=== PATIENT | male | born 1965 | race Caucasian/White ===

== ENCOUNTER 2017-11-24 11:56 | Day surgery (SDC) | payer OTHER, SELFPAY ==
--- NOTE | 2017-11-23 23:24 | HP.PCM_ITS ---
History and Physical Date of Admission: 11/24/17 HISTORY OF PRESENT ILLNESS This is a 52-year-old gentleman, who presents with chronic pain in his left index fingertip that occurred after sustaining a crushing injury back in October of 2015, when his left index fingertip was pinched by heavy steel. X-rays in the summer were negative for fracture. The patient states that he feels persistent pain in his left fingertip, and the pain has worsened and is very sensitive, and whenever he touches his finger, the pain shoots throughout his finger. He seems to be having pain out of proportion. His finger is very sensitive to heat and cold. He states that he does not use the finger that much. He bypasses the index finger and uses his long finger with his thumb when he does activities of daily living and also while he is at work. The patient is right-hand dominant. The patient denies any numbness in his left index finger. The patient has good chief nuclear medicine technologist strength with his left hand. However, he does not use his index finger for his chief nuclear medicine technologist. 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 He has also noticed that when his nail grows out that when it gets to the end of his finger, it tends to curve around the tip of the finger. It does not grow very fast, but he has noticed a curvature deformity. At his office visit in December 2016, it was recommended that we proceed with an MRI. The MRI showed no fracture and no osteonecrosis. The flexor tendon and extensor tendon were intact. There was an artifact present that is suggestive of a foreign body. He presents at this time for further evaluation and treatment. PAST MEDICAL HISTORY: 1. Bone fractures. 2. History of drug abuse. 3. 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 4. Foreign body left index finger tip, sequela 5. Nail curvature deformity left index fingertip 6. Complex regional pain syndrome type 1, left index finger 7. Late effect crushing injury left index finger tip, sequela 8. Left index finger tip pain SURGICAL HISTORY: 1. Right and left shoulder surgery. 2. Right wrist surgery. 3. Excision of sarcoma, right shoulder, with thoracotomy and rib resection. MEDICATIONS: Neurontin. Percocet. ALLERGIES: None. SOCIAL HISTORY: The patient smokes. The patient drinks alcohol occasionally. FAMILY HISTORY: Negative. REVIEW OF SYSTEMS: GENERAL: Denies fever, fatigue, and weight loss. EARS, NOSE, AND THROAT: Denies nasal congestion. Denies sore throat. EYES: Denies eye pain. Denies cataracts. Denies glaucoma. ENDOCRINE: Denies excessive thirst or urination. INTEGUMENTARY: Denies suspicious lesions. Denies skin cancer. MUSCULOSKELETAL: Denies joint pain, joint stiffness, weakness in muscles or joints, back pain, or arthritis. NEUROLOGIC: Denies headaches. Does have pain out of proportion with his left index fingertip. CARDIOVASCULAR: Denies chest pain. Denies shortness of breath with exertion. PSYCHIATRIC: Denies anxiety. Denies depression. RESPIRATORY: Denies shortness of breath. Denies chronic cough. The patient is a smoker. GASTROINTESTINAL: Denies nausea, vomiting, diarrhea, or constipation. HEMATOLOGIC: Denies abnormal bruising. Denies bleeding. GENITOURINARY: Denies urinary frequency. Denies hematuria. PHYSICAL EXAMINATION: GENERAL: well developed, well nourished, in no acute distress. HEENT: Pupils equal, round, and reactive to light. Extraocular muscles intact. Throat is clear. NECK: Supple and nontender. No cervical adenopathy. LUNGS: Clear to auscultation. HEART: Regular rate and rhythm. ABDOMEN: Soft and nontender. EXTREMITIES: No clubbing, cyanosis, or edema. Radial pulses are palpable. No axillary adenopathy noted. The patient has some stiffness in his left shoulder from his history of sarcoma. The patient is right-hand dominant. In his left upper extremity on his index finger, he has some decreased soft tissue mass on the distal tip. There is some tenderness to palpation on his left index fingertip. No sensory deficits noted. The tenderness is present even with light touch. Minimal swelling noted in the left index finger. The fingers are warm with good capillary refill. The patient is able to make a fist with his whole hand. However, he tends not to use his left index finger unless he consciously bends it, and then the finger will flex into his palm. Thumb opposition is intact. No evidence of infection. The is no evidence of nail curvature deformity at this time, as his fingernail is trimmed proximally. The patient states that the nail only develops curvature distally when he does not trim his nails. NEURO: Cranial nerves II through XII grossly intact. ASSESSMENT 1. Left index fingertip pain. 2. Late-effect crushing injury, left index fingertip. 3. Complex regional pain syndrome, left index finger. 4. Nail curvature deformity, left index fingertip. 5. Smoker. 6. Late effect foreign body left index fingertip. PLAN The patient has a late-effect of a crush injury to his left index fingertip with pain out of proportion. He says the Neurontin and Percocet has been helpful. I told the patient is important to try and desensitize the area by tapping his finger while at home or at work. This will increase pain, but with the medication, hopefully that will help desensitize the area. He had an MRI done on March 10, 2017 which showed a foreign body present. This will need to be excised as hopefully this will be the source of his pain. After surgery, he may need evaluation at the pain center for injections to try and break the pain cycle for his chronic complex regional pain syndrome. The surgical intervention that was discussed with the patient included debridement of his left index fingertip to debride all the foreign body scar tissue in this tip. Because he already has some soft tissue loss in the area, debridement may cause further soft tissue loss. If he does not have the fat pad at the tip, then having length would not be very important, since he would develop chronic pain in his bone every time the bone would touch an object. In order to provide soft tissue to the tip of the finger, a local skin flap would be necessary such as a thenar flap. This is a two stage flap that needs a second procedure division and inset of the flap 3 weeks after the initial flap. Also, at the time of the debridement, I would look for a neuroma. If neuroma is present, that would be excised. After these types of surgical procedures, if he still has persistent pain in his left fingertip, as a last resort, the surgical option would be a tip amputation. This type of amputation may necessitate going into the middle phalanx. If we get to the realization that a tip amputation is necessary, hopefully we can get by with just amputating the tip down to the DIP joint and not extending it more proximally onto the middle phalanx. Because the patient is a smoker, sometimes tip amputations need to be done more proximally. That will be discussed with the patient at the appropriate time in the future if necessary. The important thing is is trying to get the patient to use the finger more, especially when he is at work as a wire welder. So, he may possibly need occupational therapy to help with [id number] exercises and strengthening. I will determine in the future when it is appropriate to make referral to the pain center. The next step is obtaining approval from [facility] for the proposed surgery. The patient was informed of the risks and complications of the procedure including alternatives to surgery. These were discussed with the patient personally. The patient voices understanding and wishes to proceed. Some of the risks and complications were included in a form from the [employer]. Some of the risks that were discussed included but were not inclusive of failure to diagnose including symptom relief, pain, infection, numbness, stiffness, loss of digit, RSD, the need for further surgery and contracture and wound healing problems. The patient voices understanding and wishes to proceed. Encouraged the patient to stop smoking as it may have deleterious effects on wound healing.
--- NOTE | 2017-11-24 12:07 | EKG12_ITS ---
Test Reason : PRE-OP Blood Pressure : / mmHG Vent. Rate : 076 BPM Atrial Rate : 076 BPM P-R Int : 148 ms QRS Dur : 086 ms QT Int : 376 ms P-R-T Axes : 008 007 026 degrees QTc Int : 423 ms Normal sinus rhythm Normal ECG No previous ECGs available Confirmed by TAO BARAHONA, STIVEN ([id number]), editor newspaper ISAIAS KULKARNI ([id number]) on 11/27/2017 2:42:42 PM Referred By: Juan Henson Confirmed By:STIVEN BURGER MD
[2017-11-24 12:20] VITALS: BP 113/77; PULSE 71; RESP 16; TEMP 36.8; O2SAT 96; BMI 27.5
[2017-11-24 12:30] LABS: Hematocrit 42.7 % (40-54); Hemoglobin 15.2 g/dl (13.0-16.5); Mean Corp Hgb Conc 35.6 g/gl (32-36); Mean Corpuscular Hgb 32.1 pg (27.0-32.0); Mean Corpuscular Volume 90.3 fL (80-94); Platelet Count 195 K/mm3 (150-450); RBC Distribution Width CV 12.3 % (11.6-14.6); RBC Distribution Width SD 40.6 fl (35.1-43.9); Red Blood Count 4.73 M/mm3 (4.6-6.2); White Blood Count 4.4 K/mm3 (4.4-11.0)
[2017-11-24 12:35] LABS: Scan Indicated on CBC? Y/N NO
--- NOTE | 2017-11-24 13:30 | BON_PTH ---
PATIENT: JOSE MARIA CALABRESE [place] [facility] [place][id number] AGE/SX: 52/M ROOM: RE11/24/[address]: Dr. Juan Henson MD : 1965 BED: DIS: 11/24/2017 SPEC #: [id number] RECD: 11/27/17 09:21 STATUS: RACHEAL MAHENDRA #: [id number] PRASAD: 11/24/17 13:[address]: Juan Henson DEPT: SURGICAL PATHOLOGY RECD BY: Vasyl Vásquez ENTERED: 11/27/17 12:19 SP TYPE: Bone OTHR DR: Dr. Deo Sherwood MD Tissues: A - Bone of hand, NOS B - Finger, NOS Procedures: Decalcification bone/plaque Surgery Specimen Level III HEADER OPERATION: Excision left index finger, removal foreign body PRE-OP DIAGNOSIS: Left index finger ? late effect crushing injury, complex regional pain syndrome, nail curvature deformity TISSUE SUBMITTED: A ? Left index finger bone, B - Left index finger tissue and nerve MICROSCOPIC DIAGNOSIS A. Left index finger bone: Pieces of bone with reactive changes, negative for acute osteomyelitis. B. Left index finger: Pieces of fibroadipose tissue, fibrovascular tissue and nerve bundles, consistent with traumatic neuroma. BRIAN:adri 11/29/17 MICROSCOPIC DESCRIPTION Slides are reviewed. GROSS DESCRIPTION A - Received in fixative is one container labeled with the patient's name and designated left index finger bone. The specimen consists of three pieces of bone measuring in aggregate 0.5 x 0.5 x 0.2 cm. The entire specimen is submitted in one cassette after decalcification. B - Received in fixative is one container labeled with the patient's name and designated left index finger tissue and nerve. The specimen consists of an irregular piece of mehta-white soft tissue measuring in aggregate 1.5 x 1 x 0.1 cm. The specimen is totally submitted in one cassette. / BRIAN:adri 11/27/17 TC:5 CPT: 58936 x2, 03496
[2017-11-24] MEDS: Mupirocin Ointment 22gm Tube 1 APPLIC (14:32)
[2017-11-24] MEDS: Cefazolin 2 GM in 0.9% Normal Saline 100 ML IV (14:50)
--- NOTE | 2017-11-24 16:27 | PCM.IMDPSTOP ---
Immediate Post-Op Note Date of Procedure: 11/24/17 Primary Surgeon/Physician: Juan Henson database development project manager: None Pre-Operative Diagnosis: 1. Left index fingertip pain. 2. Late-effect crushing injury, left index fingertip. 3. Complex regional pain syndrome, left index finger. 4. Nail curvature deformity, left index fingertip. 5. Smoker. 6. Late effect foreign body left index fingertip. Post-Operative Diagnosis: 1. Left index fingertip pain. 2. Late-effect crushing injury, left index fingertip. 3. Painful ulnar and radial digital neuromas left index finger tip. 4. Complex regional pain syndrome, left index finger. 5. Nail curvature deformity, left index fingertip. 6. Smoker. 7. Late effect foreign body left index fingertip with foreign body granuloma. Surgery/Procedure Performed:: 1. Surgical preparation painful left index finger tip with excision foreign body granuloma and excisional debridement crushing injury dense scar tissue with excision painful ulnar and radial digital neuromas. 2. Partial ostectomy distal phalanx left index finger tip for osteomyelitis. 3. Reconstruction left index finger tip wound with volar advancement skin flaps (10 cm2). Description of Surgical Findings:: This is a 52-year-old gentleman, who presents with chronic pain in his left index fingertip that occurred after sustaining a crushing injury back in October of 2015, when his left index fingertip was pinched by heavy steel. X-rays in the summer were negative for fracture. The patient states that he feels persistent pain in his left fingertip, and the pain has worsened and is very sensitive, and whenever he touches his finger, the pain shoots throughout his finger. He seems to be having pain out of proportion. His finger is very sensitive to heat and cold. He states that he does not use the finger that much. He bypasses the index finger and uses his long finger with his thumb when he does activities of daily living and also while he is at work. The patient is right-hand dominant. The patient denies any numbness in his left index finger. The patient has good show host strength with his left hand. However, he does not use his index finger for his show host. 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 He has also noticed that when his nail grows out that when it gets to the end of his finger, it tends to curve around the tip of the finger. It does not grow very fast, but he has noticed a curvature deformity. At his office visit in December 2016, it was recommended that we proceed with an MRI. The MRI showed no fracture and no osteonecrosis. The flexor tendon and extensor tendon were intact. There was an artifact present that is suggestive of a foreign body. Operative intervention was recommended, and after excision of this foreign body granuloma, this will hopefully be the source of his pain. After surgery, he may need evaluation at the pain center for injections to try and break the pain cycle for his chronic complex regional pain syndrome. The surgical intervention that was discussed with the patient included debridement of his left index fingertip to debride all the foreign body scar tissue in this tip. Because he already has some soft tissue loss in the area, debridement may cause further soft tissue loss. If he does not have the fat pad at the tip, then having length would not be very important, since he would develop chronic pain in his bone every time the bone would touch an object. In order to provide soft tissue to the tip of the finger, a local skin flap would be necessary such as a thenar flap. This is a two stage flap that needs a second procedure division and inset of the flap 3 weeks after the initial flap. Also, at the time of the debridement, I would look for a neuroma. If neuroma is present, that would be excised. After these types of surgical procedures, if he still has persistent pain in his left fingertip, as a last resort, the surgical option would be a tip amputation. This type of amputation may necessitate going into the middle phalanx. Today the patient underwent surgical preparation painful left index finger tip with excision foreign body granuloma and excisional debridement crushing injury dense scar tissue with excision painful ulnar and radial digital neuromas and partial ostectomy distal phalanx left index finger tip for osteomyelitis and reconstruction left index finger tip wound with volar advancement skin flaps (10 cm2). Total tourniquet time - 63 minutes. The size of the defect and the flaps necessary to close the defect was 5 x 2 cm. Estimated Blood Loss: 2 ml. Specimen's removed: 1. Soft tissue left index finger tip to Pathology and Microbiology. 2. Distal phalanx bone left index finger tip to Pathology and Microbiology. Drains: None. Type of Anesthesia:: General - Admit VTE Documentation VTE Present on Admission: No VTE Mechan Device Prophylaxis: SCD's VTE Pharm Prophylaxis ordered?: No
--- NOTE | 2017-11-24 16:33 | OP.PN_ITS ---
Immediate Post-Op Note Date of Procedure: 11/24/17 Primary Surgeon/Physician: Juan Henson air technician: None Pre-Operative Diagnosis: 1. Left index fingertip pain. 2. Late-effect crushing injury, left index fingertip. 3. Complex regional pain syndrome, left index finger. 4. Nail curvature deformity, left index fingertip. 5. Smoker. 6. Late effect foreign body left index fingertip. Post-Operative Diagnosis: 1. Left index fingertip pain. 2. Late-effect crushing injury, left index fingertip. 3. Painful ulnar and radial digital neuromas left index finger tip. 4. Complex regional pain syndrome, left index finger. 5. Nail curvature deformity, left index fingertip. 6. Smoker. 7. Late effect foreign body left index fingertip with foreign body granuloma. Surgery/Procedure Performed:: 1. Surgical preparation painful left index finger tip with excision foreign body granuloma and excisional debridement crushing injury dense scar tissue with excision painful ulnar and radial digital neuromas. 2. Partial ostectomy distal phalanx left index finger tip for osteomyelitis. 3. Reconstruction left index finger tip wound with volar advancement skin flaps (10 cm2). Description of Surgical Findings:: This is a 52-year-old gentleman, who presents with chronic pain in his left index fingertip that occurred after sustaining a crushing injury back in October of 2015, when his left index fingertip was pinched by heavy steel. X-rays in the summer were negative for fracture. The patient states that he feels persistent pain in his left fingertip, and the pain has worsened and is very sensitive, and whenever he touches his finger, the pain shoots throughout his finger. He seems to be having pain out of proportion. His finger is very sensitive to heat and cold. He states that he does not use the finger that much. He bypasses the index finger and uses his long finger with his thumb when he does activities of daily living and also while he is at work. The patient is right-hand dominant. The patient denies any numbness in his left index finger. The patient has good day haul youth supervisor strength with his left hand. However, he does not use his index finger for his day haul youth supervisor. 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 He has also noticed that when his nail grows out that when it gets to the end of his finger, it tends to curve around the tip of the finger. It does not grow very fast, but he has noticed a curvature deformity. At his office visit in December 2016, it was recommended that we proceed with an MRI. The MRI showed no fracture and no osteonecrosis. The flexor tendon and extensor tendon were intact. There was an artifact present that is suggestive of a foreign body. Operative intervention was recommended, and after excision of this foreign body granuloma, this will hopefully be the source of his pain. After surgery, he may need evaluation at the pain center for injections to try and break the pain cycle for his chronic complex regional pain syndrome. The surgical intervention that was discussed with the patient included debridement of his left index fingertip to debride all the foreign body scar tissue in this tip. Because he already has some soft tissue loss in the area, debridement may cause further soft tissue loss. If he does not have the fat pad at the tip, then having length would not be very important, since he would develop chronic pain in his bone every time the bone would touch an object. In order to provide soft tissue to the tip of the finger, a local skin flap would be necessary such as a thenar flap. This is a two stage flap that needs a second procedure division and inset of the flap 3 weeks after the initial flap. Also, at the time of the debridement, I would look for a neuroma. If neuroma is present, that would be excised. After these types of surgical procedures, if he still has persistent pain in his left fingertip, as a last resort, the surgical option would be a tip amputation. This type of amputation may necessitate going into the middle phalanx. Today the patient underwent surgical preparation painful left index finger tip with excision foreign body granuloma and excisional debridement crushing injury dense scar tissue with excision painful ulnar and radial digital neuromas and partial ostectomy distal phalanx left index finger tip for osteomyelitis and reconstruction left index finger tip wound with volar advancement skin flaps ( 10 cm2). Total tourniquet time - 63 minutes. The size of the defect and the flaps necessary to close the defect was 5 x 2 cm. Estimated Blood Loss: 2 ml. Specimen's removed: 1. Soft tissue left index finger tip to Pathology and Microbiology. 2. Distal phalanx bone left index finger tip to Pathology and Microbiology. Drains: None. Type of Anesthesia:: General - Admit VTE Documentation VTE Present on Admission: No VTE Mechan Device Prophylaxis: SCD's VTE Pharm Prophylaxis ordered?: No
[2017-11-24 16:39] VITALS: BP 113/77; BP 129/80; PULSE 75; RESP 16; TEMP 36.6; O2SAT 100
--- NOTE | 2017-11-24 16:39 | PCM.DC ---
You will use the following diet at home:: No restrictions Discharge Activity: May not drive while taking narcotic pain medications., May Shower - wear plastic bag over left hand when showering. Return to work on:: 12/22/17 - tentative May shower in (days): 1 - wear plastic bag over left hand when showering. May resume sexual activity in: No Restrictions Lifting Restrictions: 20 lbs. Keep extremity elevated above heart level: Left Arm Call your doctor if your incision/area has: Continuous Slow Oozing, Sudden Increased Bleeding, Increased Pain/ Swelling, Increased Redness, Foul Smelling Discharge, Swelling at the incision site Call your doctor if you observe: Fever of 101 or Higher, Coldness, Increased Pain, Shortness of breath, Chest pain, Calf discomfort, Uncontrolled pain Suture Line Care: - - after dressing removed in office, apply antibiotic ointment to suture line daily. Change Dressing in (Days):: 7 - change in office. Cleanse incision/area with: - - wear plastic bag over left hand when showering. Allergies/Adverse Reactions: Allergies succinylcholine chloride [From Anectine] Allergy (Verified 11/23/17 16:35) Other Medications to take at Discharge Doxycycline [Vibramycin] 100 mg PO BID #28 cap 11/24/17 Gabapentin [Neurontin] 300 mg PO BID 30 Days #60 cap 11/24/17 Oxycodone HCl/Acetaminophen [Percocet 5/325] 1 - 2 tab PO 4X/DAY PRN PRN 7 Days #50 tab 11/24/17 The following prescriptions were given: Oxycodone HCl/Acetaminophen [Percocet 5/325] 1 - 2 tab PO 4X/DAY PRN PRN 7 Days #50 tab PRN Reason: Pain Doxycycline [Vibramycin] 100 mg PO BID #28 cap Gabapentin [Neurontin] 300 mg PO BID 30 Days #60 cap Primary Care Physician: Deo Sherwood MD [Primary Care Provider] - Please Follow Up With: Juan Henson MD When: one week. call [phone] for appt. Proposed Discharge Date: 11/24/17
[2017-11-24 16:45] VITALS: BP 113/77; BP 122/89; PULSE 77; RESP 16; O2SAT 100
[2017-11-24 16:52] VITALS: BP 113/77
[2017-11-24 17:00] VITALS: BP 113/77; BP 121/96; PULSE 72; RESP 16; TEMP 36.2; O2SAT 95
[2017-11-24 17:11] VITALS: BP 113/77
--- NOTE | 2017-11-24 20:34 | PCM.OPRPT ---
Report of Operation Date of Procedure: 11/24/17 Pre-Operative Diagnosis: 1. Left index fingertip pain. 2. Late-effect crushing injury, left index fingertip. 3. Complex regional pain syndrome, left index finger. 4. Nail curvature deformity, left index fingertip. 5. Smoker. 6. Late effect foreign body left index fingertip. Post-Operative Diagnosis: 1. Left index fingertip pain. 2. Late-effect crushing injury, left index fingertip. 3. Painful ulnar and radial digital neuromas left index finger tip. 4. Complex regional pain syndrome, left index finger. 5. Nail curvature deformity, left index fingertip. 6. Smoker. 7. Late effect foreign body left index fingertip with foreign body granuloma. Surgery/Procedure Performed:: 1. Surgical preparation painful left index finger tip with excision foreign body granuloma and excisional debridement crushing injury dense scar tissue with excision painful ulnar and radial digital neuromas. 2. Partial ostectomy distal phalanx left index finger tip for osteomyelitis. 3. Reconstruction left index finger tip wound with volar advancement skin flaps (10 cm2). Description of Surgical Findings:: This is a 52-year-old gentleman, who presents with chronic pain in his left index fingertip that occurred after sustaining a crushing injury back in October of 2015, when his left index fingertip was pinched by heavy steel. X-rays in the summer were negative for fracture. The patient states that he feels persistent pain in his left fingertip, and the pain has worsened and is very sensitive, and whenever he touches his finger, the pain shoots throughout his finger. He seems to be having pain out of proportion. His finger is very sensitive to heat and cold. He states that he does not use the finger that much. He bypasses the index finger and uses his long finger with his thumb when he does activities of daily living and also while he is at work. The patient is right-hand dominant. The patient denies any numbness in his left index finger. The patient has good assistant activities director strength with his left hand. However, he does not use his index finger for his assistant activities director. 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 He has also noticed that when his nail grows out that when it gets to the end of his finger, it tends to curve around the tip of the finger. It does not grow very fast, but he has noticed a curvature deformity. At his office visit in December 2016, it was recommended that we proceed with an MRI. The MRI showed no fracture and no osteonecrosis. The flexor tendon and extensor tendon were intact. There was an artifact present that is suggestive of a foreign body. Operative intervention was recommended, and after excision of this foreign body granuloma, this will hopefully be the source of his pain. After surgery, he may need evaluation at the pain center for injections to try and break the pain cycle for his chronic complex regional pain syndrome. The surgical intervention that was discussed with the patient included debridement of his left index fingertip to debride all the foreign body scar tissue in this tip. Because he already has some soft tissue loss in the area, debridement may cause further soft tissue loss. If he does not have the fat pad at the tip, then having length would not be very important, since he would develop chronic pain in his bone every time the bone would touch an object. In order to provide soft tissue to the tip of the finger, a local skin flap would be necessary such as a thenar flap. This is a two stage flap that needs a second procedure division and inset of the flap 3 weeks after the initial flap. Also, at the time of the debridement, I would look for a neuroma. If neuroma is present, that would be excised. After these types of surgical procedures, if he still has persistent pain in his left fingertip, as a last resort, the surgical option would be a tip amputation. This type of amputation may necessitate going into the middle phalanx. The patient was informed of the risks and complications of the procedure including alternatives to surgery. These were discussed with the patient personally. The patient voices understanding and wishes to proceed. Some of the risks and complications were included in a form from the [employer]. Some of the risks that were discussed included but were not inclusive of failure to diagnose including symptom relief, pain, infection, numbness, stiffness, loss of digit, RSD, the need for further surgery and contracture and wound healing problems. The patient voices understanding and wishes to proceed. Encouraged the patient to stop smoking as it may have deleterious effects on wound healing. Total tourniquet time - 63 minutes. The size of the defect and the flaps necessary to close the defect was 5 x 2 cm. suit attendant: None Type of Anesthesia:: General Specimen's removed: 1. Soft tissue left index finger tip to Pathology and Microbiology. 2. Distal phalanx bone left index finger tip to Pathology and Microbiology. Drains: None. Estimated Blood Loss (mL): 2 ml. Description of Procedure: Patient was taken to OR in supine position and was placed under general anesthesia. His left hand was prepped and draped in the usual fashion. A tourniquet was placed preop. SCD's were placed for DVT prophylaxis. Perioperative antibiotics were given intravenously. An Esmarch bandage was used to wrap the left hand and forearm. The tourniquet was inflated to 250 mmHg. Under loupe magnification, I first started by loosening the nail plate off the nail bed with an elevator. Some abnormal scarring in the distal nail bed area was excised. I extended this incision down the ulnar aspect of the finger to the DIP joint crease. I then continued the incision horizontally toward the radial side of the finger. I created a skin flap and dissected down to the tendon sheath and the distal phalanx bone. There was a lot of dense scar tissue present. No obvious foreign body was seen but the denseness of the scarring could be indicative of a foreign body granuloma. There was some irregularities to the bone on the radial aspect of the distal phalanx and was excised with a partial ostectomy with a rongeur. The edges were smoothed out with a rasp. I also removed some distal phalanx bone from the most distal portion of the bone as well. There was a lot of dense scar tissue around the distal ends of the radial digital and ulnar digital nerves. This external compression could be contributing to the patient's pain and irritation and his reluctance to use his index finger while at work. With the severity of the crushing nature of this injury, I anticipate there is internal nerve damage as well and just by doing the neurolysis may not be enough to help his pain. He understands that there may be some numbness after the surgery and that is ok as long as his painful symptomatology improves and he starts to use his index finger while at work. Therefore these painful radial digital and ulnar digital neuromas were excised. I dissected out both nerves and placed them on stretch. I then excised the tip of both nerves and allowed the digital nerves to retract more proximally to minimize discomfort while he is at work. After the soft tissue and bone were debrided, I advanced the distal skin flap to the tip more distally to provide extra soft tissue to the tip of the finger. I also had to advance this flap because of the wound created by excising the abnormal scar tissue from the nail bed distally. After advancing this distal flap, there was a defect on the volar aspect at the level of the DIP joint crease with the tendon exposed. Therefore I wanted to closed this wound defect. I extended another volar flap down to the MP joint crease and dissected down to the tendon sheath. This second flap was easily advanced into the defect with minimal tension and minimal distortion. The size of the defect and the size of the skin flaps necessary to close the defect was 5 x 2 cm or 10 cm2. Half the soft tissue and half the bone was sent to Pathology for analysis to rule out carcinoma and to evaluate for osteomyelitis and half the soft tissue and half the bone was sent to Microbiology for culture. His painful symptomatology may be partially related to a chronic infection. I then closed the volar skin flaps with 5-0 Nylon simple interrupted and vertical mattress interrupted sutures. I also used 5-0 Nylon interrupted sutures to keep the nail plate intact on the nail bed. Antibiotic ointment was applied to the suture line. The tourniquet was released after 63 minutes. Hemostasis obtained with gentle pressure and elevation. No vascular compromise was noted on the skin flaps. I then dressed the left index finger with Xeroform gauze followed by 2x2 gauze and a 2 inch David wrap. Patient tolerated the procedure well and was sent to PACU in satisfactory condition. He will be sent home on antibiotics and pain medication and Neurontin for any burning nerve pain that may develop from the excision of the painful neuromas. He will followup in the office in a week. His sutures will be removed in 2-3 weeks. He will keep his left hand elevated during the initial postop period. I will have him tentatively off work until 12/22/17. Grafts/Implants Used: None. - Complications None. - Admit VTE Documentation VTE Present on Admission: No VTE Mechan Device Prophylaxis: SCD's VTE Pharm Prophylaxis ordered?: No Code Visit Surgery Charges CPT - 48529 ICD-10 - S67.191A, S61.341S, L60.8, G90.512, S67.191S, M79.645, G57.60, Z87.891 11250 S67.191A, S61.341S, L60.8, G90.512, S67.191S, M79.645, G57.60, Z87.891 85611 S67.191A, S61.341S, L60.8, G90.512, S67.191S, M79.645, G57.60, Z87.891 [id number] S67.191A, S61.341S, L60.8, G90.512, S67.191S, M79.645, G57.60, Z87.891
== END 2017-11-24 17:28 | disposition home or self-care (01) ==
LOC: SDC 11:58 → AC 11:58
PROVIDERS: Anesthesiology; Family Provider Family Medicine; PCP Family Medicine; Visit Provider Surgery
PROC: (CPT 15574; principal; 2017-11-24 13:15)
DX: G90.512 Complex regional pain syndrome I of left upper limb (principal); D36.12 Benign neoplasm of peripheral nerves and autonomic nervous system, upper limb, including shoulder; F17.200 Nicotine dependence, unspecified, uncomplicated; Z85.830 Personal history of malignant neoplasm of bone; L60.8 Other nail disorders; Y99.0 Civilian activity done for income or pay; S67.191S Crushing injury of left index finger, sequela; S61.33 Puncture wound without foreign body of finger with damage to nail; W23.0XXS Caught, crushed, jammed, or pinched between moving objects, sequela; Z87.891 Personal history of nicotine dependence
CPT/HCPCS: 15004; 15574; 20525; 26236; 26520; 85027; 87070; 87075; 87102; 87186; 87205; 87206; 88304; 88311; 93005; J7120; J2405

== ENCOUNTER 2019-01-08 14:13 | Emergency (ER) | payer OTHER, SELFPAY ==
[2019-01-08 14:14] VITALS: BP 124/84; PULSE 85; RESP 16; TEMP 36.8; O2SAT 97; BMI 27.1
--- NOTE | 2019-01-08 14:33 | CT_ITS ---
STUDY: CT ABDOMEN AND PELVIS WITHOUT CONTRAST REASON FOR EXAM: Male, 53 years old. Worsening lower abdominal pain. Left greater than right. RADIATION DOSAGE (If Supplied By Facility): CTDIvol = ( 7.40 ) mGy, DLP = ( 371.72 ) mGycm TECHNIQUE: Transaxial images were obtained from the dome of the diaphragm to the symphysis pubis without oral contrast, and without intravenous contrast. Sagittal and coronal images were reconstructed. Individualized dose optimization techniques were used for this CT. COMPARISON: None. FINDINGS: Increased markings at the lung bases with areas of confluence suggesting bibasilar atelectasis and/or infiltrates. The visualized portions of the heart are within normal limits. Normal liver. Normal gallbladder and extrahepatic biliary system. Normal spleen. Normal pancreas. Normal bilateral adrenal glands. Normal right kidney. Normal left kidney. There is a small hiatal hernia. Normal small intestine. There is diverticulosis, with thickening of the colon wall, and pericolonic inflammation changes consistent with a mild degree of acute diverticulitis. The appendix is visualized and appears normal. There is scattered atherosclerotic calcification of the abdominal aorta, without a demonstrated aneurysm. Normal inferior vena cava. Normal retroperitoneum. Normal urinary bladder. There is a small umbilical hernia containing fat. Small left inguinal containing fat. Disc space narrowing and degeneration at the L5-S1 level. CT/Abdomen/Pelvis without Cont IMPRESSION: Findings in keeping with a mild degree of the acute noncomplicated sigmoid diverticulitis. Follow-up is recommended. Electronically Signed: Zelalem Peoples, at 15:24 EDT , Service support ,
[2019-01-08] MEDS: Morphine 4 MG/ML Syringe IV (14:56)
[2019-01-08] MEDS: 0.9% Normal Saline 1,000 ML 1000 ML IV (14:56)
[2019-01-08] MEDS: Ondansetron 4 MG/2 ML Vial IV (14:56)
[2019-01-08 15:01] LABS: Absolute Lymphocyte Count 1.46 X10^3/ul (0.83-4.51); Absolute Neutrophil Count 6.1 X10^3/uL (2.0-7.7); Basophil# 0.02 X10^3/uL; Basophil% 0.2 % (0-1); Eosinophil# 0.12 X10^3/uL; Eosinophils% 1.4 % (0-5); Hematocrit 42.6 % (40-54); Hemoglobin 15.4 g/dl (13.0-16.5); Lymphocyte # 1.46 X10^3/ul (4.0); Mean Corp Hgb Conc 36.2 g/gl (32-36); Mean Corpuscular Hgb 32.8 pg (27.0-32.0); Mean Corpuscular Volume 90.6 fL (80-94); Mean Platelet Vol. 10.4 fl (6.2-12.0); Monocyte# 0.85 X10^3/uL; Monocyte% 9.9 % (0-10); Neutrophil # 6.13 X10^3/uL (2.7-7.7); Neutrophil % 71.4 % (47-70); Platelet Count 208 K/mm3 (150-450); RBC Distribution Width CV 12.3 % (11.6-14.6); RBC Distribution Width SD 40.6 fl (35.1-43.9); White Blood Count 8.6 K/mm3 (4.4-11.0)
--- NOTE | 2019-01-08 15:07 | ED.VISSUMM ---
- ER Visit Summary Date of Service: 01/08/19 Chief Complaint: Abdominal pain History of Present Illness: The patient is a [address] Deo Sherwood. He reports he has lower abdominal pain began 2 days ago. Is gradually gotten worse. It is a constant cramping pain with sharp episodes. It is 8 out of 10 at worst and 3 out of 10 currently. Is worsened by movement relieved by remaining still. He reports that he is been nauseated, but has not vomited. He denies any diarrhea. In fact he reports his last bowel was 2 days ago and typically he goes daily. No blood in stools or black tarry stools. No dysuria or frequency. He does complain of poor appetite and chills. Physical Examination: Vitals: Stable. Afebrile. General: Well-nourished and well-developed. Head: Normocephalic atraumatic. Neck: Supple, no lymphadenopathy. No JVD. Nontender. Cardiovascular: Regular rate and rhythm. No murmurs. Respiratory: No respiratory distress. Clear to auscultation bilaterally. Abdominal: Soft, mild right lower quadrant and moderate left lower quadrant tenderness to palpation, nondistended, normal bowel sounds. No guarding, rebound, or peritoneal signs. Back: Nontender. Extremities: Nontender, no edema. Skin: Normal color, no rash. Neurologic: Alert and oriented ?3. Cranial nerves II through XII are intact. Normal strength and sensation. Psych: Normal affect. Test Results: CBC shows segmented neutrophils of 71 lymphocytes 17. Chem-7 shows a BUN of 19. Clinical Impression(s) from Imaging Studies Abdomen/Pelvis CT 01/08/19 14:33 IMPRESSION: Findings in keeping with a mild degree of the acute noncomplicated sigmoid diverticulitis. Follow-up is recommended. Electronically Signed: Zelalem Peoples, at 15:24 EDT , Service support , Emergency Department Course and Treatment: Patient had an IV placed. He is given morphine and Zofran IV. He is resting more comfortably. He was given Cipro and Flagyl p.o. Treatment Plan: Patient will be discharged on Cipro, Flagyl, Zofran, and [place]. Instructed to follow-up with Dr.John Sherwood in 1 week for another exam. Return to the emergency department for any worsening symptoms. Disposition: To home in improved and stable condition. Impression: 1. Diverticulitis. This note was generated with [email or web address] dictation software. It may contain incorrect words, spelling, and punctuation that were not noted in review of the chart prior to signing ED Disposition - Plan for ED Patient: Disposition: Home or Assisted Living Instructions: Diverticulitis Prescriptions: Ciprofloxacin [Cipro] 500 mg PO BID #20 tab metroNIDAZOLE [Flagyl] 500 mg PO Q6H #40 tab Prescription Printed Hydrocodone Bitart/Apap 5-325 [[place] 5MG-325MG] 1 tab PO Q4H PRN PRN 2 Days #10 tab PRN Reason: Pain Prescription Printed Ondansetron [Zofran Odt] 4 mg PO Q8H PRN PRN #10 tab PRN Reason: Nausea Prescription Printed Referrals: Deo Sherwood MD [Primary Care Provider] - 1 Week
[2019-01-08 15:14] LABS: Anion Gap 8 (5-15); BUN 19 mg/dL (7-18); Calcium,Total 9.1 mg/dL (8.5-10.1); Chloride 104 mmol/L (98-107); EST Glomerular Filtration Rate 83 mL/min (>60); Est Glom Filt Rate - Afr Amer 101 mL/min (>60); Estimated Creatinine Clearance 79.87 ml/min; Glucose 101 mg/dL (74-106); Potassium 3.9 mmol/L (3.5-5.1); Sodium Level 140 mmol/L (136-145)
[2019-01-08 15:17] LABS: POSITIVE COUNT NO; POSITIVE DIFFERENTIAL NO; POSITIVE MORPHOLOGY NO
[2019-01-08] MEDS: metroNIDAZOLE 500 MG Tablet PO (16:15)
[2019-01-08] MEDS: Ciprofloxacin 500 MG Tablet PO (16:15)
[2019-01-08 16:17] VITALS: BP 141/89; PULSE 69; RESP 16; O2SAT 95
[2019-01-08 16:18] VITALS: BP 141/89; PULSE 61; RESP 16; O2SAT 96
== END 2019-01-08 16:20 | disposition home or self-care (01) ==
PROVIDERS: Emergency Provider Emergency Medicine; Family Provider Family Medicine; PCP Family Medicine
DX: K57.32 Diverticulitis of large intestine without perforation or abscess without bleeding (principal)
CPT/HCPCS: 74176; 80048; 85025; 96361; 96374; 96375; 99284; J7030; A4216; J2405

== ENCOUNTER → 2019-04-04 16:31 | Outpatient (CLI) | payer OTHER, SELFPAY ==
[2019-01-30 12:12] VITALS: BMI 27.1
--- NOTE | 2019-04-04 16:50 | EKG12_ITS ---
Test Reason : PREOP Blood Pressure : / mmHG Vent. Rate : 068 BPM Atrial Rate : 068 BPM P-R Int : 162 ms QRS Dur : 086 ms QT Int : 372 ms P-R-T Axes : 024 029 041 degrees QTc Int : 395 ms Normal sinus rhythm with sinus arrhythmia Normal ECG Confirmed by ANURAG TOMPKINS ([id number]), assignment desk editor ISAIAS KULKARNI ([id number]) on 04/08/2019 2:01:54 PM Referred By: Conor Zelaya Confirmed By:ANURAG TOMPKINS
[2019-04-04 17:15] LABS: Hematocrit 43.3 % (40-54); Hemoglobin 15.1 g/dL (13.0-16.5); Mean Corp Hgb Conc 34.9 g/dL (32-36); Mean Corpuscular Hgb 31.7 pg (27.0-32.0); Mean Corpuscular Volume 90.8 fL (80-94); Mean Platelet Vol. 10.3 fl (6.2-12.0); Platelet Count 207 K/mm3 (150-450); RBC Distribution Width CV 11.9 % (11.6-14.6); RBC Distribution Width SD 39.7 fl (35.1-43.9); Red Blood Count 4.77 M/mm3 (4.6-6.2); White Blood Count 4.4 K/mm3 (4.4-11.0)
[2019-04-04 17:59] LABS: Anion Gap 7 (5-15); BUN 18 mg/dL (7-18); BUN/Creat Ratio 19.5 RATIO (10-20); Chloride 108 mmol/L (98-107); Creatinine, Serum 0.92 mg/dL (0.70-1.30); EST Glomerular Filtration Rate 91 mL/min (>60); Est Glom Filt Rate - Afr Amer 110 mL/min (>60); Glucose 93 mg/dL (74-106); Potassium 3.8 mmol/L (3.5-5.1); Sodium Level 142 mmol/L (136-145)
== END ==
PROVIDERS: Orthopaedic Surgery; Family Provider Family Medicine; PCP Family Medicine; Referring Provider Physician Assistant; Visit Provider Physician Assistant
DX: Z01.818 Encounter for other preprocedural examination (principal); Z79.899 Other long term (current) drug therapy
CPT/HCPCS: 36415; 80048; 85027; 93005

== ENCOUNTER → 2020-01-09 10:19 | Outpatient (CLI) | payer OTHER, SELFPAY ==
[2019-01-30 12:12] VITALS: BMI 27.1
[2020-01-09 13:05] LABS: Absolute Lymphocyte Count 1.62 X10^3/uL (0.83-4.51); Absolute Neutrophil Count 2.8 X10^3/uL (2.0-7.7); Basophil# 0.03 X10^3/uL; Basophil% 0.6 % (0-1); Eosinophil# 0.13 X10^3/uL; Eosinophils% 2.6 % (0-5); Hematocrit 45.1 % (40-54); Hemoglobin 15.5 g/dL (13.0-16.5); Lymphocyte # 1.62 X10^3/ul (4.0); Lymphocyte % 32.2 % (19-41); Mean Corp Hgb Conc 34.4 g/dL (32-36); Mean Corpuscular Hgb 31.6 pg (27.0-32.0); Mean Platelet Vol. 10.7 fl (6.2-12.0); NRBC Flagged by Analyzer 0 % (0-5); Neutrophil # 2.84 X10^3/uL (2.7-7.7); Neutrophil % 56.4 % (47-70); Platelet Count 245 K/mm3 (150-450); RBC Distribution Width SD 40.2 fl (35.1-43.9)
[2020-01-09 13:22] LABS: ALB/GLOB Ratio 1.1 RATIO (0.9-2.4); AST(SGOT) 26 U/L (15-37); Alanine Aminotransfer ALT/SGPT 60 U/L (16-61); Albumin, Serum 4.1 g/dL (3.2-5.0); Alkaline Phosphatase 79 U/L (45-117); Anion Gap 7 (5-15); BUN 16 mg/dL (7-18); BUN/Creat Ratio 15.8 RATIO (10-20); Calcium,Total 9.2 mg/dL (8.5-10.1); Chloride 104 mmol/L (98-107); Creatinine, Serum 1.01 mg/dL (0.70-1.30); EST Glomerular Filtration Rate 82 mL/min (>60); Est Glom Filt Rate - Afr Amer 99 mL/min (>60); Globulin 3.6 g/dL (2.2-4.2); Glucose 119 mg/dL (74-106); Potassium 3.8 mmol/L (3.5-5.1); Protein, Total 7.7 g/dL (6.4-8.2); Sodium Level 138 mmol/L (136-145)
== END ==
PROVIDERS: PCP Family Medicine; Referring Provider Family Medicine; Visit Provider Family Medicine
DX: R10.32 Left lower quadrant pain (principal)
CPT/HCPCS: 36415; 80053; 85025

== ENCOUNTER → 2020-01-09 10:54 | Outpatient (CLI) | payer OTHER, SELFPAY ==
[2019-01-30 12:12] VITALS: BMI 27.1
--- NOTE | 2020-01-09 11:03 | CT_ITS ---
STUDY: CT ABDOMEN AND PELVIS WITH CONTRAST REASON FOR EXAM: Male, 54 years old. ABD PAIN, RT SIDE, HS CHONDROSARCOMA RT SHOULDER RADIATION DOSAGE (If Supplied By Facility): CTDIvol = ( 13.00 ) mGy, DLP = ( 795.72 ) mGycm TECHNIQUE: Transaxial images were obtained from the dome of the diaphragm to the symphysis pubis with oral contrast. Oral and amp; IV Breeza and amp; 100mL Isovue-300 was administered. Sagittal and coronal images were reconstructed. Individualized dose optimization techniques were used for this CT. COMPARISON: Comparison is made with prior examination dated January 08, 2019. FINDINGS: Minimal degree of increased markings at the lung bases suggestive of atelectasis. The visualized portions of the heart are within normal limits. There is decreased attenuation of the liver consistent with steatosis. Normal gallbladder and extrahepatic biliary system. Normal spleen. Normal pancreas. Normal bilateral adrenal glands. Normal right kidney. Normal left kidney. There is a small hiatal hernia. Normal small intestine. There are multiple colonic diverticula consistent with diverticulosis. There is evidence of a thickening of the sigmoid colon. Mild diverticulitis should be ruled out. The appendix is visualized and appears normal. There is scattered atherosclerotic calcification of the abdominal aorta, without a demonstrated aneurysm. Normal inferior vena cava. Normal retroperitoneum. Normal urinary bladder. Normal abdominal wall. Marked degree of disc space narrowing and degeneration with spondylosis at the L5-S1 level. CT/Abdomen/Pelvis WITH Contrast IMPRESSION: Sigmoid diverticulosis. Finding suggests a very mild sigmoid diverticulitis. Electronically Signed: eZlalem Peoples, at 13:40 EDT , Service support ,
== END ==
PROVIDERS: PCP Family Medicine; Referring Provider Family Medicine; Visit Provider Family Medicine
DX: K57.92 Diverticulitis of intestine, part unspecified, without perforation or abscess without bleeding (principal)
CPT/HCPCS: 74177; Q9967

== ENCOUNTER 2020-02-02 16:43 | Emergency (ER) | payer OTHER, SELFPAY ==
[2019-01-30 12:12] VITALS: BMI 27.1
[2020-02-02 16:45] VITALS: BP 133/52; PULSE 82; RESP 17; TEMP 36.3; O2SAT 99; BMI 27.1
[2020-02-02 17:02] VITALS: BP 133/52; PULSE 82; RESP 17; TEMP 36.3; O2SAT 99
--- NOTE | 2020-02-02 17:19 | CT_ITS ---
STUDY: CT ABDOMEN AND PELVIS WITH CONTRAST REASON FOR EXAM: Male, 54 years old. LOWER ABD PAIN BEGAN 2 DAYS AGO WORSENING. FATIGUE, BODY ACHES, DIARRHEA, CHILLS, AND SORE THROAT. RADIATION DOSAGE (If Supplied By Facility): CTDIvol = ( 13.97 ) mGy, DLP = ( 756.44 ) mGycm TECHNIQUE: Transaxial images were obtained from the dome of the diaphragm to the symphysis pubis without oral contrast. Oral and amp; IV Gastrografin and amp; 100mL Isovue-300 was administered. Sagittal and coronal images were reconstructed. Individualized dose optimization techniques were used for this CT. COMPARISON: None. FINDINGS: Nonspecific interstitial thickening in the lower lobes. There is a tiny noncalcified nodule in the right lower lobe measuring 4.5 mm of uncertain significance The visualized portions of the heart are within normal limits. Small hiatal hernia is present. Normal liver. Normal gallbladder and extrahepatic biliary system. Normal spleen. Normal pancreas. Normal bilateral adrenal glands. Normal right kidney. Normal left kidney. Normal visualized stomach. No evidence for small bowel obstruction. There is submucosal thickening of the descending and transverse colon as well as submucosal fat deposition within the descending and sigmoid colon consistent with inflammatory bowel disease.. There is mild thickening of the wall of the distal ileum suggesting ileocolitis possibly Crohn''s disease. The appendix is visualized and appears normal. Atherosclerotic changes of the aorta without evidence for aneurysm. Normal inferior vena cava. Normal retroperitoneum. Normal urinary bladder. Moderate-sized fat-containing left inguinal hernia is noted.. Lumbar spine demonstrates mild degenerative change. CT/Abdomen/Pelvis WITH Contrast IMPRESSION: Diffuse colitis which appears most severe in the ascending and transverse segments as well as apparent mild thickening of the ruffin of the terminal ileum raising question of Crohn''s disease.. Incidental finding of tiny noncalcified nodule in the right lung base of indeterminate etiology. Would recommend additional imaging utilizing Fleischner Society criteria Electronically Signed: Bradly Song MD at 19:31 EDT , Service support ,
[2020-02-02 17:46] LABS: Red Blood Cells-Urine 0 SEEN /hpf (0-5); Squamous Epithelial Cells - UA 0 SEEN /hpf (0-5)
[2020-02-02 17:48] LABS: Absolute Lymphocyte Count 1.32 X10^3/uL (0.83-4.51); Absolute Neutrophil Count 3.5 X10^3/uL (2.0-7.7); Basophil# 0.03 X10^3/uL; Basophil% 0.5 % (0-1); Eosinophil# 0.11 X10^3/uL; Hematocrit 46.1 % (40-54); Hemoglobin 16.2 g/dL (13.0-16.5); Lymphocyte # 1.32 X10^3/ul (4.0); Mean Corp Hgb Conc 35.1 g/dL (32-36); Mean Corpuscular Volume 91.1 fL (80-94); Mean Platelet Vol. 10.2 fl (6.2-12.0); Monocyte# 0.51 X10^3/uL; Monocyte% 9.3 % (0-10); NRBC Flagged by Analyzer 0 % (0-5); Neutrophil # 3.52 X10^3/uL (2.7-7.7); Platelet Count 211 K/mm3 (150-450); RBC Distribution Width SD 39.8 fl (35.1-43.9); Red Blood Count 5.06 M/mm3 (4.6-6.2); White Blood Count 5.5 K/mm3 (4.4-11.0)
[2020-02-02 17:49] LABS: Color, Urine Amber (Yellow); Glucose, Dipstick Normal (Normal); Ketone-Dipstick 5 mg/dl (Negative); Leukocyte Esterase-Dipstick 25 /ul (Negative); Nitrite-Dipstick Positive (Negative); Occult Blood-Urine 10 /ul (Negative); Protein-Dipstick 100 mg/dl (Negative); Urine Clarity Clear (Clear); Urine Urobilinogen 1 mg/dl (Normal)
[2020-02-02 17:56] LABS: Anion Gap 5 (5-15); BUN 17 mg/dL (7-18); BUN/Creat Ratio 16.7 RATIO (10-20); Calcium,Total 8.6 mg/dL (8.5-10.1); Chloride 106 mmol/L (98-107); Creatinine, Serum 1.02 mg/dL (0.70-1.30); EST Glomerular Filtration Rate 81 mL/min (>60); Est Glom Filt Rate - Afr Amer 98 mL/min (>60); Glucose 130 mg/dL (74-106); Potassium 3.4 mmol/L (3.5-5.1); Sodium Level 137 mmol/L (136-145)
[2020-02-02 17:57] LABS: Urine Bilirubin Dipstick 1 mg/dL (Negative)
[2020-02-02 17:59] LABS: Mucous, Urine 2+ /hpf (<or=2+)
[2020-02-02 18:00] LABS: White Blood Cells 0-5 SEEN /hpf (0-5)
[2020-02-02 18:03] LABS: Bacteria 2+ /hpf (None Seen)
[2020-02-02] MEDS: 0.9% Normal Saline 1,000 ML 1000 ML IV (18:03)
[2020-02-02 18:08] LABS: Hyaline Cast 0-5 SEEN /lpf (0-5)
--- NOTE | 2020-02-02 18:25 | ED.VISSUMM ---
- ER Visit Summary Date of Service: 02/02/20 Chief Complaint: Abdominal pain History of Present Illness: The patient is a [address] Guzman. He reports that he has lower abdominal pain that began 2 days ago and is gradually gotten worse. Is an aching, dull pain is 4-10 at worst 3-10 currently. Is worsened by food and relieved by nothing. He said nausea without vomiting. He ports a 12 sodas a diarrhea in the past 24 hours. No blood in the stools or black tarry stools. No dysuria or frequency. Patient denies sick contacts. Has not been camping out of the country. No possible bad food exposure. Does not drink well water. Patient has been on Cipro and Flagyl recently for diverticulitis. Patient also reports he is had a fever to 101.4 and chills. Reports he has diffuse myalgias, fatigue, and a headache. He has no known exposure to COVID-19. However, he does not wear a mask at work. Physical Examination: Vitals: Stable. Afebrile. General: Well-nourished and well-developed. Head: Normocephalic atraumatic. Neck: Supple, no lymphadenopathy. No JVD. Nontender. Cardiovascular: Regular rate and rhythm. No murmurs. Respiratory: No respiratory distress. Clear to auscultation bilaterally. Abdominal: Soft, mild diffuse tenderness outpatient of the lower abdomen that is worst in the right lower quadrant, nondistended, normal bowel sounds. No guarding, rebound, or peritoneal signs. Back: Nontender. Extremities: Nontender, no edema. Skin: Normal color, no rash. Neurologic: Alert and oriented ?3. Cranial nerves II through XII are intact. Normal strength and sensation. Psych: Normal affect. Test Results: CBC is normal. Chem-7 shows a potassium of 3.4 and glucose 130. Urine shows nitrites and 2+ bacteria. This was sent for culture. C. difficile is positive. Clinical Impression(s) from Imaging Studies Abdomen/Pelvis CT 02/02/20 17:19 IMPRESSION: Diffuse colitis which appears most severe in the ascending and transverse segments as well as apparent mild thickening of the ruffin of the terminal ileum raising question of Crohn''s disease.. Incidental finding of tiny noncalcified nodule in the right lung base of indeterminate etiology. Would recommend additional imaging utilizing Fleischner Society criteria Electronically Signed: Bradly Song MD at 19:31 EDT , Service support , Chest X-Ray 02/02/20 19:11 IMPRESSION: Postsurgical changes of the right lung. No acute disease Electronically Signed: Bradly Song MD at 19:33 EDT , Service support , Chest CT 02/02/20 19:43 IMPRESSION: Minor atelectasis within the dependent portion of the lungs. Tiny noncalcified nodule measuring approximate 7 x 3 mm in the right middle lobe of indeterminate etiology or clinical significance. Recommend repeat study as per Fleischner Society recommendations. Electronically Signed: Bradly Song MD at 20:44 EDT , Service support , Emergency Department Course and Treatment: Patient had an IV placed. He is given a liter normal saline. He refused pain and nausea medications. He is resting comfortably. Patient was treated with vancomycin p.o. Treatment Plan: Patient will be discharged with vancomycin and Zofran. Instructed to follow-up with his primary care physician in 1 week for another exam. Return to the emergency department for any worsening symptoms. Disposition: To home in improved and stable condition. Impression: 1. C. difficile colitis. 2. Right middle lobe pulmonary nodule 7 x 3 mm. This note was generated with [employer] dictation software. It may contain incorrect words, spelling, and punctuation that were not noted in review of the chart prior to signing ED Disposition - Plan for ED Patient: Instructions: Clostridium difficile Infection, ED Nodule Solitary Pulmonary Prescriptions: Vancomycin [Vancocin] 125 mg PO Q6H #56 capsule Ondansetron [Zofran Odt] 4 mg PO Q8H PRN PRN #10 tablet PRN Reason: Nausea Referrals: Deo Oglesby MD [Primary Care Provider] - 1 Week
[2020-02-02 19:02] LABS: Probe Check PASS; Specimen Processing Control PASS
--- NOTE | 2020-02-02 19:11 | RAD_ITS ---
STUDY: X-RAY CHEST REASON FOR EXAM: Male, 54 years old. FLU LIKE SYMPTOMS TECHNIQUE: AP portable COMPARISON: None. FINDINGS: There are surgical clips projecting over the right upper lobe with associated multiple rib resections There is no demonstrated pleural abnormality. Normal size heart. Normal mediastinum. There are also surgical clips in the right hilum. Normal visualized pulmonary arteries. Normal visualized aortic arch and descending thoracic aorta. Dorsal spine demonstrates mild scoliosis and degenerative change. Normal visualized clavicles, and shoulders. There is no demonstrated abnormality of the visualized soft tissue structures of the upper abdomen. RAD/Chest 1 View (Portable) IMPRESSION: Postsurgical changes of the right lung. No acute disease Electronically Signed: Bradly Song MD at 19:33 EDT , Service support ,
--- NOTE | 2020-02-02 19:43 | CT_ITS ---
STUDY: CT CHEST WITHOUT CONTRAST REASON FOR EXAM: Male, 54 years old. 4.5 MM RLL NODULE ON CT ABD/PELV RADIATION DOSAGE (If Supplied By Facility): CTDIvol = ( 15.36 ) mGy, DLP = ( 544.92 ) mGycm TECHNIQUE: Transaxial imaging was performed without the administration of intravenous contrast material. Individualized dose optimization techniques were used for this CT. COMPARISON: None. FINDINGS: There is minor atelectasis within the dependent portion of the lungs.. Tiny noncalcified nodule in the right middle lobe measuring 7 x 3 mm of indeterminate etiology. There is no demonstrated pleural abnormality. Heart size is normal. There is coronary artery calcification. Normal mediastinum. Normal hilar regions. Normal unenhanced pulmonary arteries. Normal aorta arch and descending thoracic aorta. Postsurgical changes status post multiple right rib resections. There is no demonstrated abnormality of the visualized upper abdomen. CT/Chest without Contrast IMPRESSION: Minor atelectasis within the dependent portion of the lungs. Tiny noncalcified nodule measuring approximate 7 x 3 mm in the right middle lobe of indeterminate etiology or clinical significance. Recommend repeat study as per Fleischner Society recommendations. Electronically Signed: Bradly Song MD at 20:44 EDT , Service support ,
[2020-02-02 20:00] VITALS: BP 119/95; PULSE 73; RESP 16; TEMP 36.8; O2SAT 99
[2020-02-02 22:21] VITALS: BP 115/63; PULSE 84; RESP 16; O2SAT 95
== END 2020-02-02 23:05 | disposition home or self-care (01) ==
LOC: ED 17:51
PROVIDERS: Emergency Provider Emergency Medicine; PCP Family Medicine
DX: A04.72 Enterocolitis due to Clostridium difficile, not specified as recurrent (principal); R91.1 Solitary pulmonary nodule
CPT/HCPCS: 36415; 71045; 71250; 74177; 80048; 81001; 85025; 87040; 87086; 87177; 87209; 87493; 87506; 87635; 96360; 96361; 99284; G2023; J7030; Q9967; A4216; U0003

== ENCOUNTER → 2020-03-13 09:39 | Outpatient (CLI) | payer OTHER, SELFPAY ==
--- NOTE | 2020-03-13 09:41 | RAD_ITS ---
STUDY: X-RAY - ABDOMEN/PELVIS REASON FOR EXAM: Male, 54 years old. Left lower quadrant pain. TECHNIQUE: AP supine and upright views of the abdomen and pelvis. COMPARISON: CT dated 02/02/20 FINDINGS: There is no bowel obstruction. There is air and stool to the level of the rectum. There is no free air. The visualized osseous structures are within normal limits. RAD/Abd Inc Decub and/or Erect IMPRESSION: No bowel obstruction. Electronically Signed: Joshua Wheat, at 17:35 EDT Tel , Service support ,
== END ==
PROVIDERS: PCP Family Medicine; Referring Provider Family Medicine; Visit Provider Family Medicine
DX: R10.32 Left lower quadrant pain (principal)
CPT/HCPCS: 74019

== ENCOUNTER → 2020-08-11 16:20 | Outpatient (CLI) | payer OTHER, SELFPAY ==
[2020-08-11 18:19] LABS: T4 Free Direct 0.84 ng/dL (0.76-1.46); Thyroid Stim Hormone (TSH) 9.62 uIU/mL (0.358-3.74)
== END ==
PROVIDERS: PCP Family Medicine; Referring Provider Family Medicine; Visit Provider Family Medicine
DX: E04.1 Nontoxic single thyroid nodule (principal)
CPT/HCPCS: 36415; 84439; 84443

== ENCOUNTER → 2020-08-12 16:40 | Outpatient (CLI) | payer OTHER, SELFPAY ==
[2020-08-28 16:35] LABS: Anti-Thyroglobulin AB 1030.7 IU/mL (0.0-0.9); Thyroglobulin RIA 21 ng/mL (.); Thyroid Peroxidase AB 327 IU/mL (0-34)
== END ==
PROVIDERS: PCP Family Medicine; Referring Provider Family Medicine; Visit Provider Family Medicine
DX: E04.1 Nontoxic single thyroid nodule (principal)
CPT/HCPCS: 36415; 84432; 86376; 86800

== ENCOUNTER → 2020-09-16 | Outpatient (CLI) | payer OTHER, SELFPAY ==
--- NOTE | 2020-09-15 16:00 | ASPS_PTH ---
PATIENT: JOSE MARIA CALABRESE LOC: [facility] #:[id number] AGE/SX: 54/M ROOM: RE09/16/[address]: Dr. Royce Wynn MD : 1965 BED: DIS: 09/16/2020 SPEC #: [id number] RECD: 09/16/20 10:21 STATUS: RACHEAL MAHENDRA #: [id number] PRASAD: 09/15/20 16:[address]: Royce Wynn DEPT: CYTOLOGY RECD BY: Azalea Camejo ENTERED: 09/16/20 11:35 SP TYPE: ASPIRATION OTHR DR: Dr. Deo Oglesby MD Tissues: Thyroid gland, NOS Procedures: Special Stain Group II Cytology Other HEADER OPERATION: Ultrasound-guided fine needle aspiration right thyroid at isthmus PRE-OP DIAGNOSIS: Right thyroid nodule at the isthmus TISSUE SUBMITTED: FNA right thyroid at isthmus slides x12 DIAGNOSIS CYTOLOGY Right thyroid at isthmus, ultrasound-guided FNA (smears): Consistent with chronic lymphocytic thyroiditis. BRIAN:adri 09/17/2020 CYTOLOGY STUDY Slides are reviewed. CYTOLOGY GROSS Received are 12 smears labeled with the patient's name and designated per the requisition as right thyroid. Submitted for staining. / adri 09/16/2020 TC:3 CPT: 05047
== END | disposition home or self-care (01) ==
LOC: LABSPEC 11:07
PROVIDERS: PCP Family Medicine; Referring Provider Surgery; Visit Provider Surgery
DX: E04.1 Nontoxic single thyroid nodule (principal)
CPT/HCPCS: 88161; 88313

== ENCOUNTER → 2021-05-07 12:27 | Outpatient (CLI) | payer OTHER, SELFPAY ==
[2021-05-07 15:33] LABS: ALB/GLOB Ratio 1.2 RATIO (0.9-2.4); AST(SGOT) 20 U/L (15-37); Alanine Aminotransfer ALT/SGPT 52 U/L (16-61); Albumin, Serum 4.1 g/dL (3.2-5.0); Alkaline Phosphatase 57 U/L (45-117); Anion Gap 7 (5-15); BUN 18 mg/dL (7-18); BUN/Creat Ratio 19.2 RATIO (10-20); Calcium,Total 8.8 mg/dL (8.5-10.1); Chloride 104 mmol/L (98-107); Cholesterol 199 mg/dL (200); Creatinine, Serum 0.94 mg/dL (0.70-1.30); EST Glomerular Filtration Rate 89 mL/min (>60); Est Glom Filt Rate - Afr Amer 107 mL/min (>60); Globulin 3.4 g/dL (2.2-4.2); Glucose 116 mg/dL (74-106); High Density Lipoprotein 40 mg/dL; Potassium 3.6 mmol/L (3.5-5.1); Protein, Total 7.5 g/dL (6.4-8.2); Sodium Level 139 mmol/L (136-145); T4 Free Direct 0.83 ng/dL (0.76-1.46); Thyroid Stim Hormone (TSH) 2.97 uIU/mL (0.358-3.74); Triglycerides 166 mg/dL; Very Low Density Lipoprotein 33 mg/dL (5-40)
[2021-05-07 17:22] LABS: Absolute Lymphocyte Count 1.77 X10^3/uL (0.83-4.51); Absolute Neutrophil Count 2.4 X10^3/uL (2.0-7.7); Basophil# 0.02 X10^3/uL; Basophil% 0.4 % (0-1); Eosinophil# 0.13 X10^3/uL; Eosinophils% 2.7 % (0-5); Hematocrit 41.2 % (40-54); Hemoglobin 14.6 g/dL (13.0-16.5); Lymphocyte # 1.77 X10^3/ul (0.83-4.51); Lymphocyte % 36.9 % (19-41); Mean Corp Hgb Conc 35.4 g/dL (32-36); Mean Corpuscular Hgb 32.7 pg (27.0-32.0); Mean Corpuscular Volume 92.2 fL (80-94); Mean Platelet Vol. 10.7 fl (6.2-12.0); Monocyte# 0.45 X10^3/uL; Monocyte% 9.4 % (0-10); NRBC Flagged by Analyzer 0 % (0-5); Neutrophil # 2.42 X10^3/uL (2.7-7.7); Neutrophil % 50.4 % (47-70); Platelet Count 234 K/mm3 (150-450); RBC Distribution Width CV 11.7 % (11.6-14.6); RBC Distribution Width SD 39.6 fl (35.1-43.9); Red Blood Count 4.47 M/mm3 (4.6-6.2); White Blood Count 4.8 K/mm3 (4.4-11.0)
[2021-05-10 15:07] LABS: Thyroid Peroxidase AB 290 IU/mL (0-34)
[2021-05-10 15:39] LABS: Thyroglobulin Antibody 789.4 IU/mL (0.0-0.9)
== END ==
PROVIDERS: PCP Family Medicine; Referring Provider Family Medicine; Visit Provider Family Medicine
DX: E06.3 Autoimmune thyroiditis (principal)
CPT/HCPCS: 36415; 80053; 80061; 84439; 84443; 85025; 86376; 86800

== ENCOUNTER 2021-09-24 16:24 | Outpatient (CLI) | payer OTHER, SELFPAY ==
[2021-09-24 17:34] LABS: Absolute Lymphocyte Count 2.14 X10^3/uL (0.83-4.51); Basophil# 0.04 X10^3/uL; Basophil% 0.7 % (0-1); Eosinophil# 0.17 X10^3/uL; Eosinophils% 2.9 % (0-5); Hematocrit 42.7 % (40-54); Hemoglobin 15.2 g/dL (13.0-16.5); Lymphocyte # 2.14 X10^3/ul (0.83-4.51); Mean Corp Hgb Conc 35.6 g/dL (32-36); Mean Corpuscular Hgb 32.9 pg (27.0-32.0); Mean Corpuscular Volume 92.4 fL (80-94); Mean Platelet Vol. 10.5 fl (6.2-12.0); Monocyte# 0.46 X10^3/uL; NRBC Flagged by Analyzer 0 % (0-5); Neutrophil # 2.96 X10^3/uL (2.7-7.7); Neutrophil % 51.2 % (47-70); Platelet Count 242 K/mm3 (150-450); RBC Distribution Width CV 11.7 % (11.6-14.6); RBC Distribution Width SD 39.4 fl (35.1-43.9); Red Blood Count 4.62 M/mm3 (4.6-6.2); White Blood Count 5.8 K/mm3 (4.4-11.0)
[2021-09-24 18:46] LABS: Vitamin B12 663 pg/mL (211-911); Vitamin D,25 Hydroxy 28.2 ng/mL
[2021-09-24 18:52] LABS: ALB/GLOB Ratio 1.3 RATIO (0.9-2.4); AST(SGOT) 36 U/L (15-37); Alanine Aminotransfer ALT/SGPT 62 U/L (16-61); Albumin, Serum 4.3 g/dL (3.2-5.0); Alkaline Phosphatase 64 U/L (45-117); Anion Gap 5 (5-15); BUN 17 mg/dL (7-18); BUN/Creat Ratio 17.8 RATIO (10-20); Calcium,Total 9.2 mg/dL (8.5-10.1); Chloride 106 mmol/L (98-107); Creatinine, Serum 0.95 mg/dL (0.70-1.30); EST Glomerular Filtration Rate 87 mL/min (>60); Est Glom Filt Rate - Afr Amer 105 mL/min (>60); Globulin 3.4 g/dL (2.2-4.2); Glucose 93 mg/dL (74-106); PSA,Total - Annual Screen 0.73 ng/mL (0.00-4.00); Potassium 3.6 mmol/L (3.5-5.1); Protein, Total 7.7 g/dL (6.4-8.2); Sodium Level 139 mmol/L (136-145); T4 Free Direct 0.81 ng/dL (0.76-1.46); Thyroid Stim Hormone (TSH) 6.75 uIU/mL (0.358-3.74)
[2021-09-30 10:09] LABS: Testosterone, Free 12.65 ng/dL (5.00-21.00)
[2021-09-30 16:27] LABS: Testosterone, Total 506 ng/dL (264-916)
== END 2021-09-24 23:59 | disposition home or self-care (01) ==
LOC: MFPLAB 16:27
PROVIDERS: PCP Family Medicine; Referring Provider Family Medicine; Visit Provider Family Medicine
DX: Z12.5 Encounter for screening for malignant neoplasm of prostate (principal); R53.83 Other fatigue
CPT/HCPCS: 36415; 80053; 82306; 82607; 84153; 84402; 84403; 84439; 84443; 85025; G0103

== ENCOUNTER → 2022-01-03 | Outpatient (CLI) | payer OTHER, SELFPAY ==
[2022-01-03 15:24] LABS: Absolute Lymphocyte Count 2.01 X10^3/uL (0.83-4.51); Absolute Neutrophil Count 8.5 X10^3/uL (2.0-7.7); Basophil# 0.04 X10^3/uL; Basophil% 0.3 % (0-1); Eosinophils% 0.9 % (0-5); Hematocrit 42.2 % (40-54); Hemoglobin 14.9 g/dL (13.0-16.5); Lymphocyte # 2.01 X10^3/ul (0.83-4.51); Lymphocyte % 17.4 % (19-41); Mean Corp Hgb Conc 35.3 g/dL (32-36); Mean Corpuscular Hgb 32.4 pg (27.0-32.0); Mean Corpuscular Volume 91.7 fL (80-94); Mean Platelet Vol. 10.7 fl (6.2-12.0); Monocyte# 0.82 X10^3/uL; Monocyte% 7.1 % (0-10); NRBC Flagged by Analyzer 0 % (0-5); Neutrophil # 8.53 X10^3/uL (2.7-7.7); Platelet Count 232 K/mm3 (150-450); RBC Distribution Width CV 11.7 % (11.6-14.6); RBC Distribution Width SD 39.4 fl (35.1-43.9); White Blood Count 11.5 K/mm3 (4.4-11.0)
[2022-01-03 15:54] LABS: ALB/GLOB Ratio 1.1 RATIO (0.9-2.4); AST(SGOT) 60 U/L (15-37); Alanine Aminotransfer ALT/SGPT 93 U/L (16-61); Alkaline Phosphatase 74 U/L (45-117); Anion Gap 9 (5-15); BUN 19 mg/dL (7-18); BUN/Creat Ratio 19.9 RATIO (10-20); Chloride 106 mmol/L (98-107); Creatinine, Serum 0.95 mg/dL (0.70-1.30); EST Glomerular Filtration Rate 87 mL/min (>60); Est Glom Filt Rate - Afr Amer 105 mL/min (>60); Globulin 3.5 g/dL (2.2-4.2); Glucose 108 mg/dL (74-106); Potassium 3.9 mmol/L (3.5-5.1); Protein, Total 7.5 g/dL (6.4-8.2); Sodium Level 139 mmol/L (136-145); T4 Free Direct 0.86 ng/dL (0.76-1.46); Thyroid Stim Hormone (TSH) 3.28 uIU/mL (0.358-3.74)
[2022-01-04 19:29] LABS: Hemoglobin A1c 5.8 % (3.8-5.6)
== END | disposition home or self-care (01) ==
LOC: MFPLAB 11:34
PROVIDERS: PCP Family Medicine; Visit Provider Family Medicine
DX: R73.09 Other abnormal glucose (principal); E06.3 Autoimmune thyroiditis
CPT/HCPCS: 36415; 80053; 83036; 84439; 84443; 85025

== ENCOUNTER 2022-02-16 16:54 | Outpatient (CLI) | payer OTHER, SELFPAY ==
[2022-02-17 09:04] LABS: Hepatitis B Surface Antibody Non-Reactive; Hepatitis B Surface Antigen Non-Reactive (Nonreactive); Hepatitis C Antibody Non-Reactive (Nonreactive)
== END 2022-02-16 23:59 | disposition home or self-care (01) ==
LOC: MFPLAB 16:55
PROVIDERS: PCP Family Medicine; Referring Provider Family Medicine; Visit Provider Family Medicine
DX: R79.89 Other specified abnormal findings of blood chemistry (principal)
CPT/HCPCS: 36415; 86706; 86803; 87340

== ENCOUNTER 2022-06-15 16:47 | Outpatient (CLI) | payer OTHER, SELFPAY ==
[2022-06-15 17:52] LABS: Absolute Lymphocyte Count 2.22 X10^3/uL (0.83-4.51); Basophil# 0.03 X10^3/uL; Basophil% 0.5 % (0-1); Eosinophil# 0.18 X10^3/uL; Eosinophils% 3.1 % (0-5); Hematocrit 40.7 % (40-54); Hemoglobin 14.6 g/dL (13.0-16.5); Lymphocyte # 2.22 X10^3/ul (0.83-4.51); Lymphocyte % 37.6 % (19-41); Mean Corp Hgb Conc 35.9 g/dL (32-36); Mean Corpuscular Volume 92.1 fL (80-94); Mean Platelet Vol. 10.6 fl (6.2-12.0); Monocyte# 0.46 X10^3/uL; Monocyte% 7.8 % (0-10); NRBC Flagged by Analyzer 0 % (0-5); Neutrophil % 50.8 % (47-70); Platelet Count 222 K/mm3 (150-450); RBC Distribution Width CV 11.9 % (11.6-14.6); RBC Distribution Width SD 40.2 fl (35.1-43.9); Red Blood Count 4.42 M/mm3 (4.6-6.2); White Blood Count 5.9 K/mm3 (4.4-11.0)
[2022-06-15 18:38] LABS: Vitamin D,25 Hydroxy 58.8 ng/mL
[2022-06-15 18:44] LABS: ALB/GLOB Ratio 1.4 RATIO (0.9-2.4); AST(SGOT) 33 U/L (15-37); Alanine Aminotransfer ALT/SGPT 61 U/L (16-61); Albumin, Serum 4.1 g/dL (3.2-5.0); Alkaline Phosphatase 61 U/L (45-117); Anion Gap 8 (5-15); BUN 20 mg/dL (7-18); BUN/Creat Ratio 17.7 RATIO (10-20); Calcium,Total 8.9 mg/dL (8.5-10.1); Chloride 107 mmol/L (98-107); Creatinine, Serum 1.13 mg/dL (0.70-1.30); EST Glomerular Filtration Rate 71 mL/min (>60); Est Glom Filt Rate - Afr Amer 86 mL/min (>60); Glucose 105 mg/dL (74-106); Potassium 3.8 mmol/L (3.5-5.1); Protein, Total 7.1 g/dL (6.4-8.2); Sodium Level 141 mmol/L (136-145); T4 Free Direct 0.91 ng/dL (0.76-1.46); Thyroid Stim Hormone (TSH) 5.29 uIU/mL (0.358-3.74)
[2022-06-15 19:03] LABS: Hemoglobin A1c 5.9 % (3.8-5.6)
== END 2022-06-15 23:59 | disposition home or self-care (01) ==
LOC: MFPLAB 16:48
PROVIDERS: PCP Family Medicine; Visit Provider Family Medicine
DX: E55.9 Vitamin D deficiency, unspecified (principal); R73.02 Impaired glucose tolerance (oral); E06.3 Autoimmune thyroiditis
CPT/HCPCS: 36415; 80053; 82306; 83036; 84439; 84443; 85025

== ENCOUNTER → 2022-09-13 | Outpatient (CLI) | payer OTHER, SELFPAY ==
--- NOTE | 2022-09-13 12:50 | RAD_ITS ---
STUDY: X-RAY - CERVICAL SPINE REASON FOR EXAM: Male, 56 years old. Radiculopathy. TECHNIQUE: 5 view(s) of the cervical spine were obtained. COMPARISON: None FINDINGS: Normal anterior atlantoaxial articulation. Normal odontoid process. Normal cervical lordosis. Diffuse uncovertebral and facet sclerosis. Limbus vertebrae of C6 and C7. Intervertebral disc space narrowing with osteophyte formation at C4-5, C5-6 and C6-7. Mild anterior bony neural foraminal encroachment on the right at C5-6 and C6-7 and on the left at C5-6 and C6-7. Normal soft tissues. RAD/Cerv Spine 4 or 5 Views IMPRESSION: Diffuse mild cervical spondylosis most marked at C4-5, C5-6 and C6-7. No acute abnormality, evidence of erosive changes/fusion. Electronically Signed: Conor Owens, at 13:03 EST ,
== END | disposition home or self-care (01) ==
PROVIDERS: PCP Family Medicine; Referring Provider Family Medicine; Visit Provider Family Medicine
DX: M54.12 Radiculopathy, cervical region (principal)
CPT/HCPCS: 72050

== ENCOUNTER → 2023-03-17 | Outpatient (CLI) | payer OTHER, SELFPAY ==
[2023-03-17 11:58] LABS: Absolute Lymphocyte Count 1.87 X10^3/uL (0.83-4.51); Absolute Neutrophil Count 2.3 X10^3/uL (2.0-7.7); Basophil# 0.04 X10^3/uL; Basophil% 0.8 % (0-1); Eosinophil# 0.17 X10^3/uL; Eosinophils% 3.5 % (0-5); Hematocrit 40.8 % (40-54); Hemoglobin 14.4 g/dL (13.0-16.5); Lymphocyte # 1.87 X10^3/ul (0.83-4.51); Lymphocyte % 38.8 % (19-41); Mean Corp Hgb Conc 35.3 g/dL (32-36); Mean Corpuscular Hgb 33.2 pg (27.0-32.0); Mean Platelet Vol. 10.7 fl (6.2-12.0); Monocyte# 0.46 X10^3/uL; Monocyte% 9.5 % (0-10); NRBC Flagged by Analyzer 0 % (0-5); Neutrophil # 2.28 X10^3/uL (2.7-7.7); Neutrophil % 47.4 % (47-70); Platelet Count 229 K/mm3 (150-450); RBC Distribution Width CV 11.9 % (11.6-14.6); RBC Distribution Width SD 41.1 fl (35.1-43.9); Red Blood Count 4.34 M/mm3 (4.6-6.2); White Blood Count 4.8 K/mm3 (4.4-11.0)
[2023-03-17 12:27] LABS: Vitamin B12 729 pg/mL (211-911); Vitamin D,25 Hydroxy 77.4 ng/mL
[2023-03-17 12:31] LABS: ALB/GLOB Ratio 1.2 RATIO (0.9-2.4); AST(SGOT) 36 U/L (15-37); Alanine Aminotransfer ALT/SGPT 77 U/L (16-61); Albumin, Serum 3.9 g/dL (3.2-5.0); Alkaline Phosphatase 59 U/L (45-117); Anion Gap 7 (5-15); BUN 19 mg/dL (7-18); BUN/Creat Ratio 21.7 RATIO (10-20); Calcium,Total 8.9 mg/dL (8.5-10.1); Chloride 108 mmol/L (98-107); Creatinine, Serum 0.87 mg/dL (0.70-1.30); EST Glomerular Filtration Rate 96 mL/min (>60); Est Glom Filt Rate - Afr Amer 116 mL/min (>60); Globulin 3.2 g/dL (2.2-4.2); Glucose 110 mg/dL (74-106); Potassium 3.9 mmol/L (3.5-5.1); Protein, Total 7.1 g/dL (6.4-8.2); Sodium Level 141 mmol/L (136-145); T4 Free Direct 0.83 ng/dL (0.76-1.46); Thyroid Stim Hormone (TSH) 8.28 uIU/mL (0.358-3.74)
[2023-03-17 12:58] LABS: Hemoglobin A1c 5.8 % (3.8-5.6)
== END | disposition home or self-care (01) ==
LOC: MFPLAB 09:30
PROVIDERS: PCP Family Medicine; Visit Provider Family Medicine
DX: R53.83 Other fatigue (principal); E55.9 Vitamin D deficiency, unspecified; R73.02 Impaired glucose tolerance (oral); E03.8 Other specified hypothyroidism
CPT/HCPCS: 36415; 80053; 82306; 82607; 83036; 84439; 84443; 85025

== ENCOUNTER → 2023-05-08 | Outpatient (CLI) | payer OTHER, SELFPAY ==
--- NOTE | 2023-05-08 13:00 | RAD_ITS ---
STUDY: X-RAY - PELVIS AND RIGHT HIP REASON FOR EXAM: Male, 57 years old. Pain TECHNIQUE: 3 views of the pelvis and hip. COMPARISON: CT scan abdomen and pelvis February 02, 2020 FINDINGS: There is a non-specific bowel gas pattern. Normal visualized soft tissue structures. There is visualized degenerative changes in the lower lumbar spine. Normal bilateral iliac wings, sacroiliac joints and visualized sacrum. Normal bilateral superior and inferior pubic rami. Normal pubic symphysis. Normal bilateral ischial tuberosities. There is mild degenerative change in the hip joints. There is a irregular appearance of the lesser trochanter and adjacent soft tissue. RAD/HIP, UNI W/ Pelvis 2-3 Views IMPRESSION: Stable slightly irregular appearance of the periphery of the greater trochanter is stable since prior study and partly represent ligamentous calcification. Could consider injury involving the iliopsoas. Mild degenerative change. Electronically Signed: Gabi Cespedes MD at 5:33 EDT ,
== END | disposition home or self-care (01) ==
LOC: MTRAD 12:45
PROVIDERS: PCP Family Medicine; Referring Provider Family Medicine; Visit Provider Family Medicine
DX: M25.551 Pain in right hip (principal)
CPT/HCPCS: 73502

== ENCOUNTER → 2023-05-10 | Outpatient (CLI) | payer OTHER, SELFPAY ==
--- NOTE | 2023-05-10 16:21 | RAD_ITS ---
EXAM: XR LUMBOSACRAL SPINE, 2 OR 3 VIEWS CLINICAL INDICATION: pain TECHNIQUE: Frontal and lateral views of the lumbar spine and sacrum. COMPARISON: No relevant prior studies available. FINDINGS: VERTEBRAE: No acute fracture or subluxation. DISC SPACES: Multilevel disc space narrowing most prominent at L5-S1. Mild multilevel vertebral body osteophytosis. RAD/Lumbar Spine 2 or 3 Views IMPRESSION: Mild multilevel spondylosis most prominent at L5-S1. Electronically Signed: Denys Reno MD at 10:04 EDT ,
== END | disposition home or self-care (01) ==
LOC: MTRAD 16:20
PROVIDERS: PCP Family Medicine; Referring Provider Family Medicine; Visit Provider Family Medicine
DX: M54.16 Radiculopathy, lumbar region (principal)
CPT/HCPCS: 72100

== ENCOUNTER → 2023-07-12 | Outpatient (CLI) | payer OTHER, SELFPAY ==
--- NOTE | 2023-07-12 11:54 | RAD_ITS ---
STUDY: X-RAY - ACUTE ABDOMINAL SERIES REASON FOR EXAM: Male, 57 years old. Increasing left lower quadrant pain. TECHNIQUE: Single view of the chest. Supine, and erect view(s) of the abdomen were obtained on 5 images. COMPARISON: None. FINDINGS: Chest shows postsurgical changes in the right upper lobe with hyperlucency and cavitation with healing posterior rib fractures, likely postsurgical in origin. Normal size heart. Normal mediastinum and nikki. Normal visualized pulmonary arteries. Normal visualized aortic arch and descending thoracic aorta. Normal bowel gas pattern with air seen to the rectum. No disproportionate dilatation of bowel. Normal visualized osseous structures. RAD/Acute Abdomen Inc Chest IMPRESSION: Postsurgical changes to the right upper lobe of the chest. No acute finding. Electronically Signed: Conor Owens MD at 10:05 EST ,
== END | disposition home or self-care (01) ==
LOC: MTRAD 11:54
PROVIDERS: PCP Family Medicine; Referring Provider Family Medicine; Visit Provider Family Medicine
DX: K57.92 Diverticulitis of intestine, part unspecified, without perforation or abscess without bleeding (principal)
CPT/HCPCS: 74022

== ENCOUNTER 2023-10-02 05:39 | Day surgery (SDC) | payer OTHER, SELFPAY ==
--- NOTE | 2023-09-29 08:36 | EKG12_ITS ---
Test Reason : PRE OP Blood Pressure : / mmHG Vent. Rate : 076 BPM Atrial Rate : 076 BPM P-R Int : 152 ms QRS Dur : 080 ms QT Int : 378 ms P-R-T Axes : 029 035 060 degrees QTc Int : 425 ms Normal sinus rhythm Normal ECG Confirmed by Colby Foote ([id number]), content editor JEANIE SMALLWOOD ([id number]) on 10/02/2023 1:59:51 PM Referred By: Yuosif Villafuerte Confirmed By:Colby Foote
[2023-09-29 11:04] LABS: Absolute Lymphocyte Count 1.65 X10^3/uL (0.83-4.51); Absolute Neutrophil Count 3.3 X10^3/uL (2.0-7.7); Basophil# 0.03 X10^3/uL; Basophil% 0.5 % (0-1); Eosinophil# 0.14 X10^3/uL; Eosinophils% 2.5 % (0-5); Hematocrit 42.6 % (40-54); Lymphocyte # 1.65 X10^3/ul (0.83-4.51); Lymphocyte % 29.8 % (19-41); Mean Corp Hgb Conc 35.2 g/dL (32-36); Mean Corpuscular Volume 93.8 fL (80-94); Monocyte# 0.45 X10^3/uL; Monocyte% 8.1 % (0-10); NRBC Flagged by Analyzer 0 % (0-5); Neutrophil # 3.25 X10^3/uL (2.7-7.7); Neutrophil % 58.9 % (47-70); Platelet Count 226 K/mm3 (150-450); RBC Distribution Width CV 11.7 % (11.6-14.6); RBC Distribution Width SD 40.5 fl (35.1-43.9); Red Blood Count 4.54 M/mm3 (4.6-6.2); White Blood Count 5.5 K/mm3 (4.4-11.0)
[2023-09-29 11:37] LABS: Thyroid Stim Hormone (TSH) 6.91 uIU/mL (0.358-3.74)
[2023-10-02] VITALS (10 sets, daily range): BP systolic 96–125; BP diastolic 62–97; PULSE 63–75; RESP 16; TEMP 36.1–36.4; O2SAT 94–99; BMI 29.0
--- OUTSIDE RECORDS SUMMARY | 2023-10-02 05:50 | XMS RPT_ITS | CCD ---
Author Name Unknown Address [address] [place] [address] Organization [facility] Care Team Providers Care 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 Name Role Phone Randolph Gramajo Primary Care Provider RANDOLPH GRAMAJO Primary Care RANDOLPH Hinton Primary Care RANDOLPH Hinton MD Attending Unavailable Allergies Allergy Classification Reported Allergen(s) Allergy Type Date of Onset Reaction(s) Facility (6 sources) Succinylcholine; Translations: [SUCCINYLCHOLINE] Drug Allergy 09-11-2020 Unknown [facility] Medications Current Medications Medication Drug Class(es) Dates Sig (Normalized) Sig (Original) doxycycline hyclate 100 mg oral tablet (2 sources) Tetracycline-clas s Drug Start: 07-01-2022 End: 07-08-2022 take 1 tablet by mouth twice daily doxycycline (VIBRA-TABS) 100 mg tablet Take 1 tablet by mouth twice daily for 7 days. 14 tablet 0 07/01/2022 07/08/2022 Active Completed/Discontinued Medications Medication Drug Class(es) Dates Sig (Normalized) Sig (Original) benzonatate 100 mg oral capsule (9 sources) Non-narcotic Antitussive Start: 10-24-2021 take 2 capsules by mouth every eight hours as needed benzonatate (TESSALON PERLE) 100 mg capsule Take 2 capsules by mouth three times daily as needed. 30 capsule 0 10/24/2021 Active Problems Problem Classification Problem Date Documented Da te Episodic/Chronic Chronic obstructive pulmonary disease and bronchiectasis (1 source) Bronchitis; Translations: [Bronchitis, not specified as acute or chronic] Episodic Skin and subcutaneous tissue infections (1 source) Paronychia of right thumb; Translations: [Cellulitis of right finger] Episodic Results Test Name Value Interpretation Reference Range Facil ity Vital Signs Date Time Vital Sign Value Performing Clinician Wilfred mendoza 07-01-2022 17:06-0500 Body temperature 97.5 [degF] Reshma Athy PA-C Work Phone: [facility] 07-01-2022 17:06-0500 Body weight 84.64 kg Reshma Athy PA-C Work Phone: [facility] 07-01-2022 17:06-0500 Diastolic blood pressure 72 mm[Hg] Reshma Athy PA-C Work Phone: [facility] 07-01-2022 17:06-0500 Heart rate 73 /min Reshma Athy PA-C Work Phone: [facility] 07-01-2022 17:06-0500 Respiratory rate 18 /min Reshma Athy PA-C Work Phone: [facility] 07-01-2022 17:06-0500 SaO2% (BldA) [Mass fraction] 98 % Reshma Athy PA-C Work Phone: [facility] 07-01-2022 17:06-0500 Systolic blood pressure 110 mm[Hg] Reshma Athy PA-C Work Phone: [facility] 10-24-2021 08:53-0400 Body temperature 97.59 [degF] Reshma Athy PA-C Work Phone: [facility] 10-24-2021 08:53-0400 Body weight 86.18 kg Reshma Athy PA-C Work Phone: [facility] 10-24-2021 08:53-0400 Diastolic blood pressure 78 mm[Hg] Reshma Athy PA-C Work Phone: [facility] 10-24-2021 08:53-0400 Heart rate 92 /min Reshma Athy PA-C Work Phone: [facility] 10-24-2021 08:53-0400 Respiratory rate 16 /min Reshma Athy PA-C Work Phone: [facility] 10-24-2021 08:53-0400 SaO2% (BldA) [Mass fraction] 96 % Reshma Christiansen PA-C Work Phone: [facility] 10-24-2021 08:53-0400 Systolic blood pressure 128 mm[Hg] Reshma Christiansen PA-C Work Phone: [facility] Encounters Encounter Date Encounter Type Care Provider Facility Start: 07-26-2023 End: 07-27-2023 ambulatory RANDOLPH GRAMAJO MD Facility: Start: 07-01-2022 End: 07-01-2022 ambulatory RANDOLPH GRAMAJO Facility:[facility] Start: 07-01-2022 End: 07-01-2022 Patient encounter procedure Reshma Christiansen PA-C Work Phone: [facility] Procedures Date Procedure Procedure Detail Performing Clinician Start: 05-05-2022 Us soft tissue head & neck real time imge docm Randolph Gramajo Work Phone: Start: 01-03-2022 Ct abdomen & pelvis w/contrast material Jake Amaya MD Work Phone: Plan of Treatment Date Care Activity Detail Author Start: 03-08-2025 Urine microalbumin profile DTAP,TDAP,TD (2 - Td or Tdap) [facility] Start: 03-24-2022 Influenza vaccination [facility] Start: 10-24-2021 COVID-19 VACCINE (4 - Booster for Moderna series) COVID-19 VACCINE (4 - Booster for Moderna series) [facility] Start: 10-24-2021 End: 11-07-2021 Influenza virus A and B RNA and SARS-CoV-2 (COVID-19) N gene panel - Respiratory specimen by MIGUEL ANGEL with probe detection COVID WITH FLUA+B, ROUTINE Microbiology Routine Bronchitis Expected: 10/24/2021, Expires: 11/07/2021 [facility] Work Phone: Immunizations Immunization Date Immunization Notes Care Provider Fa cility 04-22-2020 Influenza, injectabl e, Madin Batsheva Canine Kidney, preservative free, quadrivalent Reshma Christiansen PA-C Work Phone: [facility] 03-08-2015 tetanus toxoid, redu vicky diphtheria toxoid, and acellular pertussis vaccine, adsorbed Reshma Christiansen PA-C Work Phone: [facility] Payers Date Payer Category Payer Unknown [id number] 2020 Unknown MMO MMO [employer] [id number] 2020-Present [phone] [address] [place] [address] PPO [id number] 2020 Unknown MMO MMO [employer] [id number] 2020-Present [phone] [address] [place] [address] PPO [id number] 2020 Unknown [id number] 1965 Unknown [id number] Social History Date Type Detail Facility Start: 09-11-2020 End: 07-01-2022 Tobacco smoking status NHIS Ex-smoker [facility] End: 09-11-2017 History of tobacco use Current smoker [facility] End: 09-11-2017 History of tobacco use Cigarette Smoker [facility] Start: 09-11-2020 End: 07-01-2022 Cigarettes smoked current (pack per day) - Reported 1.5 [facility] Start: 09-11-2020 End: 07-01-2022 Tobacco use and exposure Former smokeless tobacco user [facility] History of tobacco use Snuff User [facility] Start: 09-25-2020 End: 07-01-2022 Alcohol intake Not Asked [facility] Start: 1965 Sex Assigned At Not on file [facility] Start: 04-25-2022 End: 05-05-2022 Exposure to SARS-CoV-2 (event) Not sure [facility] Progress note 07-01-2022 Note Date & Type Note Facility 07-01-2022 Note HNO ID: [id number] Author: Reshma Christiansen PA-C Service: ? Author Type: Physician Machine Designer Type: Progress Notes Filed: 07/01/2022 5:54 PM Note Text: This note was created using Big Liver[employer]. Subjective Arturo Cooper is a 56 year old male. HPI Patient presents with a right thumb wound over the past 6 days. He states he accidentally cut his finger on a nail. He had been putting antibiotic ointment and a Band-Aid on it but it got more painful and swollen the past few days. Last tetanus shot was 2014. Denies any drainage of the area. He states he did have a history of MRSA several years ago but is not sure. This was in a another finger. Review of Systems Constitutional: Negative. HENT: Negative. Musculoskeletal: Right thumb swelling and redness All other systems reviewed and are negative. 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 levothyroxine (SYNTHROID) 75 mcg tablet Take 75 mcg by mouth once daily. MULTI-VITAMIN ORAL Take by mouth. Lactobacillus acidophilus (PROBIOTIC) 10 billion cell cap Take by mouth. COLLAGEN MISC doxycycline (VIBRA-TABS) 100 mg tablet Take 1 tablet by mouth twice daily for 7 days. 14 tablet 0 benzonatate (TESSALON PERLE) 100 mg capsule Take 2 capsules by mouth three times daily as needed. (Patient not taking: Reported on 07/01/2022) 30 capsule 0 Benzonatate (TESSALON) 200 mg capsule Take 200 mg by mouth three times daily as needed for Cough. (Patient not taking: Reported on 10/24/2021 ) 30 capsule 1 No current facility-administered medications for this visit. PAST SURGICAL HISTORY Procedure Laterality Date COLONOSCOPY 03/2020 HAND SURGERY HX Left 2019 Lt index finger PAST SURGICAL HISTORY OF Right 1986 removal sarcoma SHOULDER SURGERY HX Left 1999 WRIST SURGERY HX Right 2010 FAMILY HISTORY Problem Relation Age of Onset Hypertension Mother Diabetes Mother Diabetes Maternal Grandmother Coronary Artery Disease Father open heart Diabetes Sister other (hypoglycemia) Brother Social History Tobacco Use Smoking status: Former Packs/day: 1.50 Years: 37.00 Pack years: 55.50 Types: Cigarettes Quit date: 09/11/2017 Years since quittin.8 Smokeless tobacco: Former Types: Snuff Objective BP 110/72 Pulse 73 Temp 36.4 ?C (97.5 ?F) Resp 18 Wt 84.6 kg (186 lb 9.6 oz) SpO2 98% BMI 29.23 kg/m? Physical Exam Vitals reviewed. Constitutional: Appearance: Normal appearance. HENT: Head: Normocephalic and atraumatic. Musculoskeletal: Comments: Patient has erythema and mild swelling adjacent to the nail on the right thumb. No sign of drainable abscess. No sign of a felon. No foreign body. Skin: General: Skin is warm and dry. Neurological: Mental Status: He is alert. Assessment and Plan ASSESSMENT/PLAN: 1. Paronychia of right thumb - ICD9: 681.02, ICD10: L03.011 - Begin treatment with doxycycline due to possible mrsa hx - follow up if not improving in 3-5 days Reshma Christiansen PA-C [facility] History of Present illness Narrative 07-01-2022 Reshma Christiansen PA-C - 07/01/2022 5:49 PM EST Note Date & Type Note Facility 07-01-2022 History of Presen t illness Narrative This note was created using [employer]. Subjective Arturo Cooper is a 56 year old male. HPI Patient presents with a right thumb wound over the past 6 days. He states he accidentally cut his finger on a nail. He had been putting antibiotic ointment and a Band-Aid on it but it got more painful and swollen the past few days. Last tetanus shot was 2014. Denies any drainage of the area. He states he did have a history of MRSA several years ago but is not sure. This was in a another finger. Review of Systems Constitutional: Negative. HENT: Negative. Musculoskeletal: Right thumb swelling and redness All other systems reviewed and are negative. 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 levothyroxine (SYNTHROID) 75 mcg tablet Take 75 mcg by mouth once daily. MULTI-VITAMIN ORAL Take by mouth. Lactobacillus acidophilus (PROBIOTIC) 10 billion cell cap Take by mouth. COLLAGEN MISC doxycycline (VIBRA-TABS) 100 mg tablet Take 1 tablet by mouth twice daily for 7 days. 14 tablet 0 benzonatate (TESSALON PERLE) 100 mg capsule Take 2 capsules by mouth three times daily as needed. (Patient not taking: Reported on 07/01/2022) 30 capsule 0 Benzonatate (TESSALON) 200 mg capsule Take 200 mg by mouth three times daily as needed for Cough. (Patient not taking: Reported on 10/24/2021 ) 30 capsule 1 No current facility-administered medications for this visit. PAST SURGICAL HISTORY Procedure Laterality Date COLONOSCOPY 03/2020 HAND SURGERY HX Left 2018 Lt index finger PAST SURGICAL HISTORY OF Right 1985 removal sarcoma SHOULDER SURGERY HX Left 1999 WRIST SURGERY HX Right 2010 FAMILY HISTORY Problem Relation Age of Onset Hypertension Mother Diabetes Mother Diabetes Maternal Grandmother Coronary Artery Disease Father open heart Diabetes Sister other (hypoglycemia) Brother Social History Tobacco Use Smoking status: Former Packs/day: 1.50 Years: 37.00 Pack years: 55.50 Types: Cigarettes Quit date: 09/11/2017 Years since quittin.8 Smokeless tobacco: Former Types: Snuff Objective BP 110/72 Pulse 73 Temp 36.4 C (97.5 F) Resp 18 Wt 84.6 kg (186 lb 9.6 oz) SpO2 98% BMI 29.23 kg/m Physical Exam Vitals reviewed. Constitutional: Appearance: Normal appearance. HENT: Head: Normocephalic and atraumatic. Musculoskeletal: Comments: Patient has erythema and mild swelling adjacent to the nail on the right thumb. No sign of drainable abscess. No sign of a felon. No foreign body. Skin: General: Skin is warm and dry. Neurological: Mental Status: He is alert. Assessment and Plan ASSESSMENT/PLAN: 1. Paronychia of right thumb - ICD9: 681.02, ICD10: L03.011 - Begin treatment with doxycycline due to possible mrsa hx - follow up if not improving in 3-5 days Reshma Christiansen PA-C documented in this encounter [facility] Progress note 10-24-2021 Note Date & Type Note Facility 10-24-2021 Note HNO ID: [id number] Author: Reshma Christiansen PA-C Service: ? Author Type: Physician Machine Designer Type: Progress Notes Filed: 10/24/2021 9:51 AM Note Text: This note was created using Big [employer]. Subjective Arturo Cooper is a 56 year old male. HPI Patient presents with cough and chest tightness over the past 2 to 3 days. He had nasal congestion for couple weeks that had gotten better 5 days ago. He states that is pretty much gone. He does have some mild postnasal drip. He started to cough 2 days ago and his chest felt tight. He is a former smoker. He quit 3 years ago. Denies known asthma or COPD. Some mild short of breath. He denies wheezing. He has not had a fever. He has not had Covid previously. He is vaccinated for Covid. Denies any known exposure the past couple weeks. No diarrhea or vomiting. He states his back feels tight as well with coughing. His cough began to be productive today. Review of Systems Constitutional: Negative for fever. HENT: Positive for congestion, postnasal drip and sore throat. Respiratory: Positive for cough, chest tightness and shortness of breath. Cardiovascular: Positive for chest pain. Gastrointestinal: Negative. Genitourinary: Negative. Musculoskeletal: Positive for back pain. Neurological: Positive for headaches. All other systems reviewed and are negative. 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 - Lactobacillus acidophilus (PROBIOTIC) 10 billion cell cap Take by mouth. - COLLAGEN MISC - sertraline (ZOLOFT) 50 mg tablet Take 50 mg by mouth once daily. - levothyroxine (SYNTHROID) 75 mcg tablet Take 75 mcg by mouth once daily. - doxycycline (VIBRA-TABS) 100 mg tablet Take 1 tablet by mouth twice daily for 10 days. 20 tablet 0 - predniSONE (DELTASONE) 20 mg tablet Take 2 tablets by mouth once daily for 5 days. 10 tablet 0 - benzonatate (TESSALON PERLE) 100 mg capsule Take 2 capsules by mouth three times daily as needed. 30 capsule 0 - Benzonatate (TESSALON) 200 mg capsule Take 200 mg by mouth three times daily as needed for Cough. (Patient not taking: Reported on 10/24/2021 ) 30 capsule 1 No current facility-administered medications for this visit. PAST SURGICAL HISTORY Procedure Laterality Date - COLONOSCOPY 03/2020 - HAND SURGERY HX Left 2018 Lt index finger - PAST SURGICAL HISTORY OF Right 1986 removal sarcoma - SHOULDER SURGERY HX Left 1999 - WRIST SURGERY HX Right 2010 FAMILY HISTORY Problem Relation Age of Onset - Hypertension Mother - Diabetes Mother - Diabetes Maternal Grandmother - Coronary Artery Disease Father open heart - Diabetes Sister - other (hypoglycemia) Brother Social History Tobacco Use - Smoking status: Former Smoker Packs/day: 1.50 Years: 37.00 Pack years: 55.50 Types: Cigarettes Quit date: 09/11/2017 Years since quittin.1 - Smokeless tobacco: Former User Types: Snuff Substance Use Topics - Alcohol use: Not on file - Drug use: Not on file Objective BP 128/78 Pulse 92 Temp 36.4 ?C (97.6 ?F) Resp 16 Wt 86.2 kg (190 lb) SpO2 96% BMI 29.76 kg/m? Physical Exam Vitals reviewed. Constitutional: Appearance: Normal appearance. HENT: Head: Normocephalic and atraumatic. Right Ear: Tympanic membrane, ear canal and external ear normal. Left Ear: Tympanic membrane, ear canal and external ear normal. Nose: Nose normal. Mouth/Throat: Mouth: Mucous membranes are moist. Pharynx: Oropharynx is clear. Cardiovascular: Rate and Rhythm: Normal rate and regular rhythm. Heart sounds: Normal heart sounds. Pulmonary: Effort: Pulmonary effort is normal. Breath sounds: Normal breath sounds. No wheezing, rhonchi or rales. Skin: General: Skin is warm and dry. Neurological: General: No focal deficit present. Mental Status: He is alert and oriented to person, place, and time. Assessment and Plan ASSESSMENT/PLAN: 1. Bronchitis - ICD9: 490, ICD10: J40 xr not open today, will have patient return tomorrow for xray. Likely viral bronchitis. Prednisone and tessalon given. Will cover with doxycycline until cxr is back, can d/c if negative. covid swab also obtained. Patient felt like this was something different from previous uri symptoms, could be concurrent uri vs protracted. Red flags discussed. Follow up with pcp as needed. - DOXYCYCLINE HYCLATE 100 MG TABLET - PREDNISONE 20 MG TABLET - COVID WITH FLUA+B, ROUTINE - XR CHEST 2V FRONTAL/LAT Reshma Christiansen PA-C [facility] Influenza virus A and B RNA and SARS-CoV-2 (COVID-19) N gene panel MIGUEL ANGEL+probe (Resp) 10-24-2021 Note Date & Type Note Facility 10-24-2021 Influenza virus A and B RNA and SARS-CoV-2 (COVID-19) N gene panel MIGUEL ANGEL+probe (Resp) COVID 19 RESULT: SARS-CoV-2 (Agent of COVID-19) Not Detected by RT-PCR or equivalent method. juan m [id number] ([employer]IPRIAN[employer])_EUA This test was developed and its performance characteristics determined by [facility]'s [facility]. This test has been authorized by FDA under an Emergency Use Authorization (EUA). This test has been validated in accordance with the FDA's Guidance Document Policy for Diagnostics Testing in Laboratories Certified to Perform High Complexity Testing under CLIA prior to Emergency use Authorization for Coronavirus Disease 2019 during the Public Health Emergency issued on September 21, 2019. Test performed by [facility], [facility], [address] [place] [address]. INFLUENZA A PCR: Negative for Influenza A by RT-PCR INFLUENZA B PCR: Negative for Influenza B by RT-PCR [facility] History of Present illness Narrative 10-24-2021 Reshma Christiansen PA-C - 10/24/2021 9:39 AM EDT Note Date & Type Note Facility 10-24-2021 History of Presen t illness Narrative This note was created using Big Liver[employer]. Subjective Arturo Cooper is a 56 year old male. HPI Patient presents with cough and chest tightness over the past 2 to 3 days. He had nasal congestion for couple weeks that had gotten better 5 days ago. He states that is pretty much gone. He does have some mild postnasal drip. He started to cough 2 days ago and his chest felt tight. He is a former smoker. He quit 3 years ago. Denies known asthma or COPD. Some mild short of breath. He denies wheezing. He has not had a fever. He has not had Covid previously. He is vaccinated for Covid. Denies any known exposure the past couple weeks. No diarrhea or vomiting. He states his back feels tight as well with coughing. His cough began to be productive today. Review of Systems Constitutional: Negative for fever. HENT: Positive for congestion, postnasal drip and sore throat. Respiratory: Positive for cough, chest tightness and shortness of breath. Cardiovascular: Positive for chest pain. Gastrointestinal: Negative. Genitourinary: Negative. Musculoskeletal: Positive for back pain. Neurological: Positive for headaches. All other systems reviewed and are negative. 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 Lactobacillus acidophilus (PROBIOTIC) 10 billion cell cap Take by mouth. COLLAGEN MISC sertraline (ZOLOFT) 50 mg tablet Take 50 mg by mouth once daily. levothyroxine (SYNTHROID) 75 mcg tablet Take 75 mcg by mouth once daily. doxycycline (VIBRA-TABS) 100 mg tablet Take 1 tablet by mouth twice daily for 10 days. 20 tablet 0 predniSONE (DELTASONE) 20 mg tablet Take 2 tablets by mouth once daily for 5 days. 10 tablet 0 benzonatate (TESSALON PERLE) 100 mg capsule Take 2 capsules by mouth three times daily as needed. 30 capsule 0 Benzonatate (TESSALON) 200 mg capsule Take 200 mg by mouth three times daily as needed for Cough. (Patient not taking: Reported on 10/24/2021 ) 30 capsule 1 No current facility-administered medications for this visit. PAST SURGICAL HISTORY Procedure Laterality Date COLONOSCOPY 03/2020 HAND SURGERY HX Left 2018 Lt index finger PAST SURGICAL HISTORY OF Right 1986 removal sarcoma SHOULDER SURGERY HX Left 1999 WRIST SURGERY HX Right 2010 FAMILY HISTORY Problem Relation Age of Onset Hypertension Mother Diabetes Mother Diabetes Maternal Grandmother Coronary Artery Disease Father open heart Diabetes Sister other (hypoglycemia) Brother Social History Tobacco Use Smoking status: Former Smoker Packs/day: 1.50 Years: 37.00 Pack years: 55.50 Types: Cigarettes Quit date: 09/11/2017 Years since quittin.1 Smokeless tobacco: Former User Types: Snuff Substance Use Topics Alcohol use: Not on file Drug use: Not on file Objective BP 128/78 Pulse 92 Temp 36.4 C (97.6 F) Resp 16 Wt 86.2 kg (190 lb) SpO2 96% BMI 29.76 kg/m Physical Exam Vitals reviewed. Constitutional: Appearance: Normal appearance. HENT: Head: Normocephalic and atraumatic. Right Ear: Tympanic membrane, ear canal and external ear normal. Left Ear: Tympanic membrane, ear canal and external ear normal. Nose: Nose normal. Mouth/Throat: Mouth: Mucous membranes are moist. Pharynx: Oropharynx is clear. Cardiovascular: Rate and Rhythm: Normal rate and regular rhythm. Heart sounds: Normal heart sounds. Pulmonary: Effort: Pulmonary effort is normal. Breath sounds: Normal breath sounds. No wheezing, rhonchi or rales. Skin: General: Skin is warm and dry. Neurological: General: No focal deficit present. Mental Status: He is alert and oriented to person, place, and time. Assessment and Plan ASSESSMENT/PLAN: 1. Bronchitis - ICD9: 490, ICD10: J40 xr not open today, will have patient return tomorrow for xray. Likely viral bronchitis. Prednisone and tessalon given. Will cover with doxycycline until cxr is back, can d/c if negative. covid swab also obtained. Patient felt like this was something different from previous uri symptoms, could be concurrent uri vs protracted. Red flags discussed. Follow up with pcp as needed. - DOXYCYCLINE HYCLATE 100 MG TABLET - PREDNISONE 20 MG TABLET - COVID WITH FLUA+B, ROUTINE - XR CHEST 2V FRONTAL/LAT Reshma Christiansen PA-C documented in this encounter [facility] Evaluation note Note Date & Type Note Facility documented in this encounter [facility] Evaluation note Note Date & Type Note Facility documented in this encounter [facility] Infection Onset Date Last Indicated Resolved Time COVID-19 Rule-Out 10/24/2021 10/24/2021 Summary Purpose Family History No Family History Records FoundNo Family History Records FoundNo Family History Records Found Advance Directives No Advanced Directives Records FoundNo Advanced Directives Records FoundNo Advanced Directives Records Found Additional Source Comments Source Comments (unrecognize d section and content) In the event this informatio n is protected by the Federal Confidentiality of Alcohol and Drug Abuse Patient Records regulations: The Federal rules restrict any use of the information to criminally investigate or prosecute any alcohol or drug abuse patient.[facility] the event this information is protected by the Federal Confidentiality of Alcohol and Drug Abuse Patient Records regulations: The Federal rules restrict any use of the information to criminally investigate or prosecute any alcohol or drug abuse patient.[facility] the event this information is protected by the Federal Confidentiality of Alcohol and Drug Abuse Patient Records regulations: The Federal rules restrict any use of the information to criminally investigate or prosecute any alcohol or drug abuse patient.[facility] the event this information is protected by the Federal Confidentiality of Alcohol and Drug Abuse Patient Records regulations: The Federal rules restrict any use of the information to criminally investigate or prosecute any alcohol or drug abuse patient.[facility] the event this information is protected by the Federal Confidentiality of Alcohol and Drug Abuse Patient Records regulations: The Federal rules restrict any use of the information to criminally investigate or prosecute any alcohol or drug abuse patient.[facility] Care Teams (unrecognized sec tion and content) 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 Relationship Specialty Start Date End Date Randolph Gramajo [address] [facility] [address] [place] [address] PCP - General Family Practice 08/31/20 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 Relationship Specialty Start Date End Date Randolph Gramajo [address] [facility] [address] [place] [address] PCP - General Family Practice 08/31/20 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 Relationship Specialty Start Date End Date Randolph Gramajo Edhernandez [address] [facility] [address] [place] [address] PCP - General Family Medicine 08/31/20 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 Relationship Specialty Start Date End Date Randolph Gramajo [address] [facility] [address] [place] [address] PCP - General Family Medicine 08/31/20 Reason for Visit (unrecogniz ed section and content) Reason Comments Finger Injury R thumb, nail cut si de of finger/ finger nail x6 days, concerns for infection (unrecognized sect ion and content) No Status Records FoundNo Status Records FoundNo Status Records Found INFORMATION SOURCE (unrecogn ized section and content) DATE CREATED AUTHOR AUTHOR'S ORGANIZ ATION 07/02/2022 [facility] DATE CREATED AUTHOR AUTHOR'S ORGANIZ ATION 07/31/2023 [facility] ([place]) FOR RECORDS PERTAINING TO PATIENTS WHO ARE OR HAVE BEEN ENROLLED IN A CHEMICAL DEPENDENCY/SUBSTANCEABUSE PROGRAM, SOME INFORMATION MAY BE OMITTED. This clinical summary was aggregated from multiple sources. Caution should be exercised in using it in the provision of clinical care. This summary normalizes information from multiple sources, and as a consequence, information in this document may materially change the coding, format and clinical context of patient data. In addition, data may be omitted in some cases. CLINICAL DECISIONS SHOULD BE BASED ON THE PRIMARY CLINICAL RECORDS. [facility]. provides no warranty or guarantee of the accuracy or completeness of information in this document.
[2023-10-02] MEDS: Lactated Ringers 1,000 ML 15 ML IV (06:32)
--- NOTE | 2023-10-02 06:39 | HP.PCM_ITS ---
History and Physical Date of Admission: 10/02/23 Intake Vital Signs 08/08/2408:18 Weight: 187 lb BP 123/78 H Blood Pressure Location Rt brachial Position Sitting Respiration 17 Pulse 79 Pulse Source Monitor Pulse Oximetry (%) 95 Oxygen Delivery Method room air Intake Visit Reasons: Inguinal Hernia Chief Complaint: inguinal hernia Is patient in pain?: No Allergies succinylcholine chloride [From Anectine] Allergy (Verified 08/08/23 09:19) Other Medications cholecalciferol (vitamin D3) 50 mcg (2,000 unit) capsule 50 mcg PO DAILY 08/08/23 [History Confirmed 08/08/23] lactobacillus combination no.4 3 billion cell capsule (Probiotic) 3,000 mmu cells PO DAILY 08/08/23 [History Confirmed 08/08/23] levothyroxine 100 mcg capsule 100 mcg PO DAILY 08/08/23 [History Confirmed 08/08/23] multivitamin 1 tab PO DAILY 08/08/23 [History Confirmed 08/08/23] sertraline 50 mg tablet (Zoloft) 50 mg PO DAILY 08/08/23 [History Confirmed 08/08/23] [facility] Medical History (Updated 08/08/23 @ 09:16 by Suzanne Ashraf) Bone fracture Complex regional pain syndrome I Crushing injury Drug abuse Foreign body finger Nail deformity Pain of finger of left hand Sarcoma Surgical History History of sarcoma History of shoulder surgery S/P wrist surgery Family History (Updated 08/08/23 @ 09:17 by Suzanne Ashraf) Mother Diabetes Heart disease HypertensionBrother CVA (cerebral vascular accident) Social History (Updated 08/08/23 @ 09:18 by Suzanne Ashraf) Smoking Status: Current every day smoker second hand exposure: Yes alcohol intake: never substance use type: does not use what type of physical activity do you participate in: other seatbelt use: never additional social history: SUN EXPOSURE: FREQUENTLY HPI HPI HPI: Patient is a 57-year-old male here with right inguinal hernia. Patient notes pain with heavy lifting. He does not note bulging but he went to the hospital and they ordered an ultrasound which showed right inguinal hernia. ROS General General: Yes fatigue; No weight change, appetite, colon cancer, breast cancer or weakness HEENT HEENT: No difficulty swallowing, eye injury, eye surgery, swollen glands or hoarseness Endo Endocrine: Yes thyroid disease; No diabetes mellitus, thyroid cancer, Hair loss, heat intolerance or cold intolerance Skin Skin: No rash or changing moles Musc Musculoskeletal: Yes back problems and arthritis; No rheumatoid arthritis, gout or joint pain Cardio Cardiovascular: No murmur, pacemaker, heart disease, atrial fibrillation, high blood pressure, heart attack, heart stent, palpitations, shortness of breat with exertion or chest pain Psych Psychiatric: No depression, anxiety or hearing voices Resp Respiratory: No shortness of breath, Yes sleep apnea, No cough, No COPD, No asthma, No emphysema and No wheezing Gastro Gastrointestinal: No abdominal pain, No nausea or vomiting, No diarrhea, No constipation, No blood in stool, No acid reflux, No hemorrhoids, No ulcers, No gallbladder problem and No black,tarry stools Manuel Hematologic: No blood thinners, No blood disorders, No bleeding, No anemia and No blood clots Neuro Neurologic: No system reviewed and no additional complaints, except as documented, No as per HPI, No abnormal gait, No abnormal hearing, No abnormal movements, No abnormal speech, No behavioral changes, No burning sensations, No confusion, No convulsions, No disequilibrium, No dizziness, No localized weakness, No frequent falls, No headache(s), No lack of coordination, No loss of vision, No memory loss, Yes numbness, No other visual disturbances, No radicular pain, No restless legs, No sensory deficit, No syncope, Yes tingling, No tremor(s), No weakness and No other Exam Const General: cooperative Orientation: alert and oriented x3 HENMT Head: normal to inspection Neck Neck: normal visual inspection and full ROM Chest Chest palpation & inspection: normal inspection of the chest Resp Effort & Inspection: normal respiratory effort Auscultation: clear to auscultation bilaterally Cardio Rate: regular rate Rhythm: regular rhythm GI Inspection: non-distended Palpation: soft and nontender Skin General: no rashes or lesions noted Neuro General: patient alert and patient oriented x3 Extrem General: full ROM Psych Appearance: grossly normal Mental Status: mental status grossly normal Assessment and Plan Assessment and Plan (1) Right inguinal hernia: Status: Acute Plan: The patient has right groin pain. He had an ultrasound which showed a right inguinal hernia containing fat. I was not able to palpate a hernia but there was a little bit of fat contacting my finger in the inguinal canal. I discussed robotic assisted right inguinal hernia repair with mesh. I discussed the procedure in detail as well as the risks. I discussed the risk of bleeding, infection, injury other organs such as the bowel, bladder, blood supply to the testicle or leg. Also discussed mesh placement and complications including but not limited to possible nerve injury or chronic groin pain. Patient understands the risks. Patient would like the opposite side repaired if there is a hernia on the contralateral side. Yousif Villafuerte MD Pager: [facility] [address] [place] [address] [address] [place] [address] Office: I have examined the patient and the H&P has been reviewed. There are no clinical changes since date of exam.
[2023-10-02] MEDS: Cefazolin 2 GM in 0.9% Normal Saline (100mL Bag) 100 ML IV (07:20)
[2023-10-02] MEDS: Bupivacaine Mpf 0.5% 30 ML VIAL (08:27)
--- NOTE | 2023-10-02 08:49 | PCM.OPRPT ---
Report of Operation Date of Procedure: 10/02/23 Pre-Operative Diagnosis: Right inguinal hernia Post-Operative Diagnosis: Bilateral inguinal hernias Surgery/Procedure Performed:: Robotic assisted laparoscopic bilateral inguinal hernia repair with mesh Type of Anesthesia: General/Regional Specimen's removed: None Estimated Blood Loss (mL): 5 Description of Procedure: Patient was brought back to the operating room and general anesthesia was induced. The abdomen was prepped and draped in usual sterile fashion. Next the midline incision was made superior to the umbilicus. The fascia was grasped with a Mariam clamp and elevated and a Veress needle was placed into the abdomen. Drop test was performed. The abdomen was then insufflated 15 mmHg and the Veress needle was removed. Port was placed into the abdomen and then a camera was placed through the port. It was inspected and there were no injuries from entry. The patient was placed in steep Trendelenburg position. He did have bilateral inguinal hernias. As discussed before the case we decided to repair both sides. Under direct visualization an 8 mm port was placed in the left lower quadrant and right lower quadrant and then the robot was docked. Using electrocautery scissors an incision was made in the peritoneum in the right lower quadrant. Dissection was carried inferiorly until the hernia sac was identified. The hernia sac was circumferentially dissected free and reduced. Once there was good dissection and room for the mesh a piece of ProGrip mesh was unfolded over the direct hernia defect on the right. It completely covered both hernia spaces. Next the peritoneum was reapproximated using a running 3 OV lock suture. There were 2 small holes from dissection and these were closed with a 3-0 Vicryl suture. Next attention was paid to the left side. Electrocautery scissors were used to make an incision in the same fashion and it was dissected down inferiorly. On the left side the patient had an indirect hernia. The indirect hernia sac was reduced as well as the cord lipoma. They were both dissected free inferiorly. Next a large piece of ProGrip mesh was unfolded over the indirect hernia on the left side. There was good coverage of all hernia areas. Next the peritoneum was reapproximated using a running 3 OV lock suture. The peritoneum completely cover the mesh on both sides at the end of the case. The air was allowed to desufflate from the abdomen. The robot was undocked and the ports were removed. The skin incisions were injected with local anesthetic and closed interrupted 4-0 Monocryl sutures. Steri-Strips and bandages were applied. Patient was awoken and taken to PACU in stable condition and tolerated the procedure well. Scrotum was checked at the end of the case and contain both testicles. Grafts/Implants Used: ProGrip bilaterally Admit VTE Documentation VTE Mechan Device Prophylaxis: SCD's
--- NOTE | 2023-10-02 08:57 | DCINST_ITS ---
Discharge Instructions Procedure Hernia Diet Discharge Diet: Light diet - advance as tolerated Activity Discharge Activity: May Not Drive (for 2-3 days or while taking narcotic pain meds.) and May Shower (with the bandage in place 1-2 days after surgery.) Lifting Restrictions: 20 pounds for 4-6 weeks. Additional Activity Instructions:: Climbing stairs is fine, walking is encouraged. Sitting in bed may be uncomfortable. Sitting up using your lateral muscles (sitting up sideways) is usually more comfortable. Do not drive, work heavy equipment of sign legal documents for 24 hours. If your hernia repair was an inguinal repair, you may have scrotal swelling, an ice pack and/or athletic support can provide more comfort. Pain medications may cause nausea, you should typically eat light foods as you take your pain medications. Pain medications may also cause constipation. If you have difficulty with this, discuss with your doctor. Alternate ibuprofen and Tylenol for pain, oxycodone for breakthrough pain Dressing / Incision Call your doctor if your incision/area has: Continuous Slow Oozing, Sudden Increased Bleeding, Increased Pain/ Swelling, Increased Redness and Foul Smelling Discharge Call your doctor if you observe: Fever of 101 or Higher Suture Line Care: Avoid Pulling/Pushing and Avoid Pinching/Bending Remove Dressing in: 2 days (Remove clear bandages in 2 days, remove Steri-Strips in 7 to 10 days.) Cleanse incision/area with: Soap & Water Follow Up Care Please Follow Up With: Yousif Villafuerte MD When: Please call to schedule 2 week follow up appointment. [phone] Test Results: Test results from this visit will be discussed in further detail at your follow- up appointment, if applicable. Discharge Plan Admission Attending Provider: Yousif Villafuerte Primary Care Provider: Deo Oglesby Discharge Orders/Prescriptions Prescriptions: New oxycodone 5 mg tablet 5 - 10 mg PO Q6H PRN (Reason: pain) 5 Days Qty: 10 0RF Continued levothyroxine 100 mcg capsule 100 mcg PO DAILY sertraline [Zoloft] 50 mg tablet 50 mg PO DAILY cholecalciferol (vitamin D3) 50 mcg (2,000 unit) capsule 50 mcg PO DAILY Probiotic 3 billion cell capsule 3,000 mmu cells PO DAILY Rx Instructions: administer with a meal multivitamin Tablet 1 tab PO DAILY Other Ambulatory Orders: 12 Lead EKG (Routine) Timeframe: [id number] Location: None Selected Ordered By: Dr. Nakul Deng Referrals / Follow Up: Deo Oglesby MD [Primary Care Provider] - Disposition Disposition (needs filled in before D/C Order can be placed): Home, Self Care
[2023-10-02] MEDS: oxyCODONE 5 MG Tablet PO (10:08)
[2023-10-02] MEDS: Acetaminophen 325 MG Tablet 650 MG PO (12:05)
== END 2023-10-02 13:34 | disposition home or self-care (01) ==
LOC: SDC 05:45 → AC 05:46
PROVIDERS: Anesthesiology; PCP Family Medicine; Referring Provider Surgery; Visit Provider Surgery
PROC: (CPT 49650; principal; 2023-10-02 07:10)
DX: K40.20 Bilateral inguinal hernia, without obstruction or gangrene, not specified as recurrent (principal); F17.200 Nicotine dependence, unspecified, uncomplicated; R10.31 Right lower quadrant pain; Z85.831 Personal history of malignant neoplasm of soft tissue; E03.9 Hypothyroidism, unspecified; G90.512 Complex regional pain syndrome I of left upper limb; L60.8 Other nail disorders
CPT/HCPCS: 49650; S2900; 00840; 36415; 84443; 85025; 93005; J7120; J2405

== ENCOUNTER → 2023-11-11 | Outpatient (CLI) | payer OTHER, SELFPAY ==
--- NOTE | 2023-11-11 08:46 | CT_ITS ---
STUDY: LOW DOSE CT LUNG CANCER SCREENING REASON FOR EXAM: Male, 58 years old. TOBACCO DEPENDENCE RADIATION DOSAGE (If Supplied By Facility): CTDIvol = ( 3.02 ) mGy, DLP = ( 98.55 ) mGycm TECHNIQUE: No contrast was administered. Low dose technique was utilized (average mAS-38 and kVp 120). 1.25 mm axial source images with a slice interval of 1.25-mm were reconstructed in lung windows. 2.5 mm axial source images with a slice interval of 2.5-mm were reconstructed in lung windows. 5.0 mm axial source images with a slice interval of 5.0-mm were reconstructed in soft tissue windows. COMPARISON: None. Emphysema: Mild bilateral apical scarring. Mild emphysema. 6 mm noncalcified nodule in the periphery of the right middle lobe lungs on image 166 and follow-up CT is recommended in 6 months document stability. Endobronchial lesion: None Aorta: No thoracic aortic aneurysm. CORONARY ARTERIES: Coronary artery calcification is seen. Heart: No cardiomegaly. Pulmonary artery: Normal Mediastinal nodes: Normal Other chest and abdominal findings: Mild dextro scoliosis of the upper thoracic spine. Multiple healed right rib fractures. CT/Low Dose CT Lung Screening IMPRESSION: Lung-RADS category 3 - Continue screening with LDCT in 6 months. IMPORTANT NOTES FOR USE: ACR Lung-RADS Version 1.1 Assessment Categories Release Date: 2018 Category: Coded 0-4 bases on nodule(s) with highest degree of suspicion. Negative screen is defined as categories 1 and 2; a positive screen is defined as categories 3 and 4. Category 3 and 4A nodules that are unchanged on interval CT should be coded as category 2, and individuals returned to screening in 12 months. Category 4X: Category 3 or 4 nodules with additional imaging findings that increase the suspicion of lung cancer, such as spiculation, GGN that doubles in size in 1 year, enlarged lymph notes, etc. Category Modifiers: S (significant finding unrelated to lung cancer) Electronically Signed: Vasyl Longo MD at 16:34 EDT ,
== END | disposition home or self-care (01) ==
LOC: CT 08:42
PROVIDERS: PCP Family Medicine; Referring Provider Internal Medicine Pulmonary Disease; Visit Provider Internal Medicine Pulmonary Disease
DX: Z87.891 Personal history of nicotine dependence (principal)
CPT/HCPCS: 71271

== ENCOUNTER → 2024-01-26 | Outpatient (CLI) | payer OTHER, SELFPAY ==
[2024-01-26 17:31] LABS: Absolute Lymphocyte Count 1.86 X10^3/uL (0.83-4.51); Absolute Neutrophil Count 2.8 X10^3/uL (2.0-7.7); Basophil# 0.02 X10^3/uL; Basophil% 0.4 % (0-1); Eosinophil# 0.15 X10^3/uL; Eosinophils% 2.9 % (0-5); Hematocrit 40.4 % (40-54); Lymphocyte # 1.86 X10^3/ul (0.83-4.51); Lymphocyte % 35.5 % (19-41); Mean Corp Hgb Conc 34.7 g/dL (32-36); Mean Corpuscular Hgb 32.1 pg (27.0-32.0); Mean Corpuscular Volume 92.7 fL (80-94); Mean Platelet Vol. 10.6 fl (6.2-12.0); Monocyte# 0.44 X10^3/uL; Monocyte% 8.4 % (0-10); NRBC Flagged by Analyzer 0 % (0-5); Neutrophil # 2.76 X10^3/uL (2.7-7.7); Neutrophil % 52.6 % (47-70); Platelet Count 241 K/mm3 (150-450); RBC Distribution Width CV 11.8 % (11.6-14.6); RBC Distribution Width SD 40.1 fl (35.1-43.9); Red Blood Count 4.36 M/mm3 (4.6-6.2); White Blood Count 5.2 K/mm3 (4.4-11.0)
[2024-01-26 17:59] LABS: Vitamin D,25 Hydroxy 49.4 ng/mL
[2024-01-26 18:04] LABS: ALB/GLOB Ratio 1.4 RATIO (0.9-2.4); AST(SGOT) 21 U/L (15-37); Alanine Aminotransfer ALT/SGPT 39 U/L (16-61); Alkaline Phosphatase 53 U/L (45-117); Anion Gap 8 (5-15); BUN 20 mg/dL (7-18); BUN/Creat Ratio 22.8 RATIO (10-20); Calcium,Total 8.9 mg/dL (8.5-10.1); Chloride 106 mmol/L (98-107); Creatinine, Serum 0.88 mg/dL (0.70-1.30); EST Glomerular Filtration Rate 95 mL/min (>60); Est Glom Filt Rate - Afr Amer 114 mL/min (>60); Globulin 2.9 g/dL (2.2-4.2); Glucose 100 mg/dL (74-106); Potassium 3.6 mmol/L (3.5-5.1); Protein, Total 6.9 g/dL (6.4-8.2); Sodium Level 140 mmol/L (136-145); T4 Free Direct 0.83 ng/dL (0.76-1.46); Thyroid Stim Hormone (TSH) 3.94 uIU/mL (0.358-3.74)
[2024-01-26 18:13] LABS: Hemoglobin A1c 5.7 % (3.8-5.6)
== END | disposition home or self-care (01) ==
LOC: MTLAB 15:09
PROVIDERS: PCP Family Medicine; Referring Provider Family Medicine; Visit Provider Family Medicine
DX: R73.02 Impaired glucose tolerance (oral) (principal); E03.8 Other specified hypothyroidism; E55.9 Vitamin D deficiency, unspecified
CPT/HCPCS: 36415; 80053; 82306; 83036; 84439; 84443; 85025

== ENCOUNTER → 2024-02-05 | Outpatient (CLI) | payer OTHER, SELFPAY ==
--- NOTE | 2024-02-05 14:24 | RAD_ITS ---
STUDY: X-RAY - LUMBAR SPINE REASON FOR EXAM: Male, 58 years old. Back pain -- post fall TECHNIQUE: 2 view(s) of the lumbar spine were obtained. COMPARISON: None FINDINGS: Normal lumbar lordosis. There is no substantial scoliosis. There is a normal alignment of the vertebrae. There is multilevel endplate spondylosis of the lumbar vertebrae. There is multi-level degenerative disc disease with multi-level disc space narrowing. There is mild atherosclerotic calcification of the abdominal aorta without a demonstrated aneurysm. RAD/Lumbar Spine 2 or 3 Views IMPRESSION: Degenerative changes of the spine, as detailed above. Electronically Signed: Zelalem Peoples MD at 15:16 EDT ,
--- NOTE | 2024-02-05 14:24 | RAD_ITS ---
INDICATION: Hip/Back pain, post fall EXAMINATION/TECHNIQUE: X-RAY - XR Hips Bilateral with Pelvis when performed; 2 Views COMPARISON: Prior study dated: May 08, 2023. FINDINGS: PELVIC BONES: No displaced fracture, destructive or sclerotic lesions. Note that overlapping bowel shadows may however obscure fine detail. Sacroiliac joints are unremarkable. No widening of the pubic symphysis. HIPS: The articular structures are unremarkable. No displaced fracture seen in this frontal view. Mild degree of bilateral joint space narrowing. SOFT TISSUES: No soft tissue swelling or gas. RAD/Hips B/L min 2 views w/ Pelvis IMPRESSION: Degenerative changes. No fracture or dislocation. Electronically Signed: Zelalme Peoples MD at 15:00 EDT ,
== END | disposition home or self-care (01) ==
LOC: MTRAD 14:23
PROVIDERS: PCP Family Medicine; Referring Provider Nurse Practitioner Family; Visit Provider Nurse Practitioner Family
DX: M25.559 Pain in unspecified hip (principal); M54.9 Dorsalgia, unspecified
CPT/HCPCS: 72100; 73521

== ENCOUNTER → 2024-05-07 | Outpatient (CLI) | payer OTHER, SELFPAY ==
[2024-05-07 17:44] LABS: Absolute Lymphocyte Count 2.18 X10^3/uL (0.83-4.51); Absolute Neutrophil Count 2.6 X10^3/uL (2.0-7.7); Basophil# 0.03 X10^3/uL; Basophil% 0.5 % (0-1); Eosinophil# 0.19 X10^3/uL; Eosinophils% 3.5 % (0-5); Hematocrit 39.7 % (40-54); Lymphocyte # 2.18 X10^3/ul (0.83-4.51); Lymphocyte % 39.9 % (19-41); Mean Corp Hgb Conc 35.3 g/dL (32-36); Mean Corpuscular Hgb 32.3 pg (27.0-32.0); Mean Corpuscular Volume 91.5 fL (80-94); Mean Platelet Vol. 10.2 fl (6.2-12.0); Monocyte# 0.49 X10^3/uL; NRBC Flagged by Analyzer 0 % (0-5); Neutrophil # 2.56 X10^3/uL (2.7-7.7); Neutrophil % 46.9 % (47-70); Platelet Count 245 K/mm3 (150-450); RBC Distribution Width CV 11.7 % (11.6-14.6); RBC Distribution Width SD 39.7 fl (35.1-43.9); Red Blood Count 4.34 M/mm3 (4.6-6.2); White Blood Count 5.5 K/mm3 (4.4-11.0)
[2024-05-07 18:11] LABS: Hemoglobin A1c 5.8 % (3.8-5.6)
[2024-05-07 18:14] LABS: ALB/GLOB Ratio 1.3 RATIO (0.9-2.4); AST(SGOT) 36 U/L (15-37); Alanine Aminotransfer ALT/SGPT 61 U/L (16-61); Albumin, Serum 4.1 g/dL (3.2-5.0); Alkaline Phosphatase 62 U/L (45-117); Anion Gap 6 (5-15); BUN 21 mg/dL (7-18); BUN/Creat Ratio 24.7 RATIO (10-20); Calcium,Total 9.2 mg/dL (8.5-10.1); Chloride 108 mmol/L (98-107); Creatinine, Serum 0.85 mg/dL (0.70-1.30); EST Glomerular Filtration Rate 98 mL/min (>60); Est Glom Filt Rate - Afr Amer 119 mL/min (>60); Globulin 3.2 g/dL (2.2-4.2); Glucose 105 mg/dL (74-106); Potassium 3.6 mmol/L (3.5-5.1); Protein, Total 7.3 g/dL (6.4-8.2); Sodium Level 141 mmol/L (136-145); T4 Free Direct 0.76 ng/dL (0.76-1.46)
== END | disposition home or self-care (01) ==
PROVIDERS: PCP Family Medicine; Visit Provider Family Medicine
DX: R73.02 Impaired glucose tolerance (oral) (principal); E03.8 Other specified hypothyroidism; E55.9 Vitamin D deficiency, unspecified
CPT/HCPCS: 36415; 80053; 82306; 83036; 84439; 84443; 85025

== ENCOUNTER → 2024-08-28 | Outpatient (CLI) | payer OTHER, SELFPAY ==
--- NOTE | 2024-08-28 14:32 | RAD_ITS ---
PROCEDURE: Pelvis and bilateral hip radiographs, l 5 views REASON FOR EXAM: Pain TECHNIQUE: Five views COMPARISON: 02/05/2024 FINDINGS: Five views of the pelvis and bilateral hips were obtained. Bones are osteopenic. Mild degenerative changes lower lumbar spine. No displaced pelvic or proximal femur fracture. Mild degenerative changes in the hip joints. No acute fracture or dislocation of the pelvis or bilateral hips. RAD/Hips B/L min 2 views w/ Pelvis IMPRESSION: Osteopenia. No acute bony abnormality of the pelvis/bilateral hips. Mild degenerative changes in the hip joints. Reading Location: [facility]
--- NOTE | 2024-08-28 14:32 | RAD_ITS ---
PROCEDURE: Lumbar spine radiographs REASON FOR EXAM: Pain TECHNIQUE: 3 view(s) of the lumbar spine COMPARISON: 02/05/2024 FINDINGS: See impression RAD/Lumbar Spine 2 or 3 Views IMPRESSION: Alignment is within normal limits. Minimal chronic compression deformity of L1 . Remaining vertebral body heights are preserved. Mild to severe multilevel disc space narrowing, greatest at L5-S1. Moderate lo wer lumbar facet arthrosis from L4 through S1. Mild degenerative changes of the hips and sacroiliac joints. Reading Location: [facility]
== END | disposition home or self-care (01) ==
LOC: MTRAD 14:32
PROVIDERS: PCP Family Medicine; Referring Provider Family Medicine; Visit Provider Family Medicine
DX: M25.559 Pain in unspecified hip (principal); M47.819 Spondylosis without myelopathy or radiculopathy, site unspecified
CPT/HCPCS: 72100; 73521

== ENCOUNTER 2024-08-29 05:26 | Emergency (ER) | payer OTHER, SELFPAY ==
[2024-08-29 05:27] VITALS: BP 134/91; PULSE 69; RESP 18; TEMP 36.6; O2SAT 96; BMI 29.0
--- NOTE | 2024-08-29 05:39 | ED.VIS.BACK ---
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 Known history of degenerative disc disease in lumbar spine. States he had back pain for about a week starts around his left hip and goes down the left lateral aspect of his leg. Denies any weakness or numbness. No bowel or bladder incontinence or retention. He has seen several chiropractors. He had a massage and made it worse. Recently saw his primary care physician who did plain x-rays. Also started him on prednisone and gave him a shot of tramadol. Patient is unsure of the milligram or dose of the prednisone. He denies any fever or redness. He denies any trauma. Prior similar symptoms: Yes Recent Illness/Hospitalization: No [facility] Medical History Lumbago with sciatica, left side Lumbar strain Lumbar contusion Wears glasses Wears dentures Thyroid disease Pain of finger of left hand Crushing injury Complex regional pain syndrome I Nail deformity Foreign body finger Drug abuse Sarcoma Bone fracture Home Medications ?Medication ?Instructions ?Recorded ?Last Taken ?Type cholecalciferol (vitamin D3) 50 50 mcg PO DAILY 08/08/23 Unknown History mcg (2,000 unit) capsule lactobacillus combination no.4 3 3,000 mmu cells PO DAILY 08/08/23 Unknown History billion cell capsule (Probiotic) levothyroxine 100 mcg capsule 100 mcg PO DAILY 08/08/23 10/01/23 History multivitamin 1 tab PO DAILY 08/08/23 Unknown History sertraline 50 mg tablet (Zoloft) 50 mg PO DAILY 08/08/23 10/01/23 History prednisone 20 mg tablet mg 08/29/24 Unknown History tramadol 50 mg tablet 50 mg PO Q6H PRN PRN pain 08/29/24 Unknown History Allergy/AdvReac Type Severity Reaction Status Date / Time succinylcholine chloride Allergy Other Verified 08/29/24 05:27 (From Anectine) Family History Mother Diabetes Heart disease Hypertension Brother CVA (cerebral vascular accident) Surgical History S/P inguinal hernia repair History of sarcoma S/P wrist surgery History of shoulder surgery Social History Smoking Status: Former smoker second hand exposure: Yes alcohol intake: never substance use type: does not use what type of physical activity do you participate in: other seatbelt use: never additional social history: SUN EXPOSURE: FREQUENTLY ROS ROS ED ROS Narrative Left lateral hip and leg pain. Denies recent illness. Constitutional Constitutional ED: Denies chills or fever(s) Eyes Eyes: Denies blurry vision ENT ENT ED: Denies ear pain Cardiovascular Cardiovascular: Denies chest pain Respiratory/Chest Respiratory/Chest: Denies dyspnea Gastrointestinal Gastrointestinal: Denies abdominal pain Genitourinary Genitourinary ED: Denies dysuria or hematuria Musculoskeletal Musculoskeletal: Reports back pain; Denies arthralgias Integumentary Denies abscess or Abrasions Neurologic Neurologic: Denies headache(s) Psychiatric Psychiatric: Denies anxiety or depression Endocrine Endocrinology: Denies cold intolerance Hematologic/Lymphatic Hematologic/Lymphatic: Denies easy bleeding Allergic/Immunologic Allergic/Immunologic ED: Denies mouth swelling, tongue swelling or urticaria EXAM Physical Exam Narrative Exam Narrative: Well-appearing 58-year-old male. Vital signs stable afebrile. H EENT exam pupils round reactive light. Normal speech. Mytrex membranes. Neck nontender no lymphadenopathy. Lungs clear to auscultation bilaterally. Heart regular rhythm rate about 70 no murmur. Chest wall ribs nontender. Abdomen soft, nontender, nondistended normal bowel sounds without peritoneal signs. No mass. No obstruction. No pulsatile mass. External exam unremarkable. No inguinal lymphadenopathy. No redness or discoloration. There is really no reproducible pain over the cervical, thoracic or lumbar spine. No SI tenderness. No discoloration. Left hip he has normal flexion extension internal/external rotation of the hip. There is no redness or warmth. There is no inguinal lymphadenopathy. There is no swelling or bruising. No rash. He has normal internal/external rotation. He has normal flexion extension of both knees, hips and ankles. Normal dorsi plantarflexion. Initially I walked in the room he was standing. He could get in the bed without any difficulty. Neurologically he is awake and alert. He has normal motor strength and sensation of all 4 extremities.. No cauda equina. No saddle anesthesia. Const Vital Signs: 08/29/24 05:27 Temperature 97.9 F Temperature Source Oral Pulse Rate 69 Respiratory Rate 18 Blood Pressure 134/91 H Blood Pressure Mean 105 Pulse Ox 96 Oxygen Delivery Method Room Air Positive well nourished and well developed; Negative for cachectic, contractures or unkempt General Appearance ED: well developed and NAD; Negative for unkempt, cachectic, contractures or pallor Nutritional Appearance: Negative for cachectic HEENT Reports moist mucous membranes Eyes PERRL and EOMs intact bilaterally Neck no lymphadenopathy, supple and no JVD Resp normal respiratory effort and clear to auscultation bilaterally Cardio regular rate, regular rhythm, S1 normal heart sound, S2 normal heart sound and no murmurs GI normal to inspection, nondistended, normoactive bowel sounds, soft to palpation, non-tender, non-distended and no masses Palpation: Negative for tender, guarding, mass, pulsatile mass or rebound tenderness present Back/Spine normal to inspection and no thoracic nor lumbar tenderness Extremity normal to inspection and no clubbing, cyanosis or edema Extremity Narrative: Left hip normal range of motion. Normal internal and external rotation actively. Normal flexion extension. No redness or warmth. No discoloration. No bruising or swelling. No inguinal lymphadenopathy. General Extremety ED: Negative for edema or tenderness General Extremity: Negative for edema Neuro no sensory deficits noted Sensorium / Orientation: alert; Negative for confused or lethargic Motor Exam: strength 5/5 throughout Psych mental status grossly normal Appearance: Negative for unkempt Skin no rashes or lesions noted and no wounds General Skin Exam: Negative for jaundice or pallor Lesions: No lesion noted Rashes: No rashes noted Trauma: Negative for abrasion or puncture Wounds: Negative for wounds noted MDM MDM MDM Narrative Medical decision making narrative: 58-year-old male with left lower back, hip and left lateral thigh pain. Pain is really not reproducible. Otherwise he has a normal exam. Normal strength and sensation. He will be given an IM injection of Dilaudid. He is currently on prednisone. Repeat exam at 6:07 AM patient started to get some relief from the IM Dilaudid shot. Repeat exam there is no signs of any redness, warmth, swelling, bleeding or rash to his left hip. He is standing in the room. He has a large scar in his right upper back and shoulder from prior sarcoma resection years ago. All his recent x-rays show chronic degenerative changes of his hip and lumbar spine. This may be neuropathic pain from a disc. He is in a follow-up with his primary care physician Dr. Deo Duckworth for further evaluation. He may need an MRI if this does not improve. Currently he is on steroids and has tramadol at home for pain. History & Record Review Discussion w/independent historian: Patient Additional record(s) reviewed:: Prior inpatient record, Prior outpatient record, Prior ED visit and Prior labs Discharge Plan Triage Chief Complaint: Back ED Provider: Scott Calero Dx/Rx/DC Orders Clinical Impression: Back pain, Hx of degenerative disc disease Instructions: ED Back Pain (Acute or Chronic) Prescriptions: No Action levothyroxine 100 mcg capsule 100 mcg PO DAILY sertraline [Zoloft] 50 mg tablet 50 mg PO DAILY cholecalciferol (vitamin D3) 50 mcg (2,000 unit) capsule 50 mcg PO DAILY Probiotic 3 billion cell capsule 3,000 mmu cells PO DAILY Rx Instructions: administer with a meal multivitamin Tablet 1 tab PO DAILY prednisone 20 mg tablet tramadol 50 mg tablet 50 mg PO Q6H PRN PRN (Reason: pain) Primary Care Provider: Deo Oglesby Referrals: Deo Oglesby MD [Primary Care Provider] - 1 Week if not improving Activity Restrictions/Additional Instructions: Continue your tramadol and prednisone at home prescribed by your primary care physician. Hopefully this will start giving you some relief in the next couple days. Call and follow-up your primary care physician if not improving. If not improving they may have to get an MRI of your lumbar spine. Print Language: [place]an Disposition Disposition: Home, Self Care
[2024-08-29] MEDS: HYDROmorphone 1 MG/ML Syringe IM (05:42)
[2024-08-29 06:08] VITALS: BP 101/80; PULSE 67; RESP 18; TEMP 36.6; O2SAT 96
== END 2024-08-29 06:43 | disposition home or self-care (01) ==
PROVIDERS: Emergency Provider Emergency Medicine; PCP Family Medicine; Visit Provider Emergency Medicine
DX: M54.9 Dorsalgia, unspecified (principal); M47.816 Spondylosis without myelopathy or radiculopathy, lumbar region; Z87.891 Personal history of nicotine dependence
CPT/HCPCS: 96372; 99282

== ENCOUNTER 2024-09-02 02:14 | Observation (INO) | payer OTHER, SELFPAY ==
[2024-09-02] VITALS (8 sets, daily range): BP systolic 126–172; BP diastolic 82–102; PULSE 68–83; RESP 14–18; TEMP 36.5–37.2; O2SAT 96–100; BMI 29.7; BMI 28.8
[2024-09-02] MEDS: HYDROmorphone 1 MG/ML Syringe IM (03:16)
[2024-09-02] MEDS: diazePAM 5 MG Tablet PO (03:17)
--- NOTE | 2024-09-02 03:26 | ED.VIS.BACK ---
HPI History of Present Illness Chief Complaint: Back Narrative Narrative: Chief complaint and HPI: Lumbar back pain. 58-year-old male with past medical history of chronic lumbar back pain/left hip pain presents for evaluation of lumbar back pain. Patient has a known history of degenerative disc disease in the lumbar spine. Patient endorses intermittent flares of his chronic back pain. He states this flare started several weeks ago after receiving a massage. Patient states he followed up with his PCP about 5 days ago in which he had x-rays performed as well as placed on prednisone. At home he has been taking prednisone, tramadol, and muscle relaxers. Patient states he ran out of his tramadol yesterday which increased his back pain. Of note, patient was seen in our emergency department on 08/29/2024 due to worsening back pain. He received IM Dilaudid and symptoms improved. Denies numbness, weakness, urinary retention, stool or urinary incontinence, saddle anesthesia, recent invasive manipulation of the spine, intravenous drug use, or fever. Denies any dysuria, hematuria, abdominal pain, nausea, vomiting. Patient denies any trauma or injury to the back. Patient states that he is scheduled to follow-up with pain management. Review of systems: See HPI Medications: As listed on the chart Allergies: As listed on the chart PFSH: Per chart Vital signs: As listed on the chart. Reviewed. Physical exam: Gen: A&O x3, NAD Head: Normocephalic, atraumatic Eyes: No sclera icterus, conjunctiva clear, PERRL, EOMI ENT: Moist mucous membranes Neck: Trachea midline, No JVD, full range of motion CV: RRR, no murmurs, no peripheral edema Resp: Lungs CTA BL, no w/r/c GI: Abd soft, non-distended, non-tender, no r/r/g Musc: Full ROM, no deformity, strength +5/5 in all extremities, no midline spinal tenderness, no bony step-offs, patient tenderness to palpation of the paraspinal musculature on the left lumbar spine-this recreates his pain, also mild tenderness to palpation of the left gluteal muscle, no signs of infection or trauma, no saddle paresthesia Skin: Warm, dry, intact Neuro: Alert, oriented, grossly intact, sensation intact, no focal deficits Psych: Cooperative, appropriate mood and affect [facility] Medical History Lumbago with sciatica, left side Lumbar strain Lumbar contusion Wears glasses Wears dentures Thyroid disease Pain of finger of left hand Crushing injury Complex regional pain syndrome I Nail deformity Foreign body finger Drug abuse Sarcoma Bone fracture Home Medications ?Medication ?Instructions ?Recorded ?Last Taken ?Type cholecalciferol (vitamin D3) 50 50 mcg PO DAILY 08/08/23 Unknown History mcg (2,000 unit) capsule lactobacillus combination no.4 3 3,000 mmu cells PO DAILY 08/08/23 Unknown History billion cell capsule (Probiotic) multivitamin 1 tab PO DAILY 08/08/23 Unknown History sertraline 50 mg tablet (Zoloft) 50 mg PO DAILY 08/08/23 10/01/23 History levothyroxine 137 mcg tablet 137 mcg PO DAILY 09/02/24 Unknown History meloxicam 7.5 mg tablet 7.5 mg PO BID 09/02/24 Unknown History Allergy/AdvReac Type Severity Reaction Status Date / Time succinylcholine chloride Allergy Other Verified 09/02/24 02:14 (From Anectine) Family History Mother Diabetes Heart disease Hypertension Brother CVA (cerebral vascular accident) Surgical History S/P inguinal hernia repair History of sarcoma S/P wrist surgery History of shoulder surgery Social History Smoking Status: Former smoker second hand exposure: Yes alcohol intake: never substance use type: does not use what type of physical activity do you participate in: other seatbelt use: never additional social history: SUN EXPOSURE: FREQUENTLY EXAM Physical Exam Const Vital Signs: 09/02/24 02:15 09/02/24 02:19 Temperature 97.7 F L Temperature Source Oral Pulse Rate 76 Respiratory Rate 18 Blood Pressure 149/102 H Blood Pressure Mean 117 Pulse Ox 99 Oxygen Delivery Method Room Air MDM MDM MDM Narrative Medical decision making narrative: 58-year-old male with past medical history of chronic lumbar back pain/left hip pain presents for evaluation of lumbar back pain. Patient presents for evaluation of acute on chronic lumbar back pain. There has been no trauma. There is nothing to suggest any infectious etiology. The patient is not an IV drug user. There is no neurologic findings to suggest an acute cauda equina syndrome, infectious etiology, or any acute radiculopathy. At this point I do not feel any emergent imaging such as x-rays or MRI are warranted. Patient symptoms will be treated. I did review the x-rays that was performed on 08/28/2024. When Dr. Calero saw the patient on 08/29 patient was given IM Dilaudid with improvement therefore patient given IM Dilaudid with Valium for muscle relaxer. On reevaluation, patient endorses only minimal relief. IM Toradol ordered. On reevaluation patient is still endorsing back pain without improvement. Therefore IV will be placed with morphine and Zofran for symptoms. Will get CT of the lumbar spine and basic labs for better assessment such as fracture, stenosis. CBC without leukocytosis or anemia. BMP relatively unremarkable. CT of the lumbar spine shows no fracture. Patient has multilevel degenerative disc disease and spondylosis. Greatest at L5-S1 with moderate to severe central canal stenosis and severe bilateral neuroforaminal narrowing. Additionally there is suggestion of a superimposed right subarticular disc protrusion at L5-S1 with mass effect on the right S1 nerve as well as abundant of the left S1 nerve from the disc bulge. On reevaluation, patient is still having intractable back pain therefore he will require admission. However given his CT lumbar spine findings will consult Dr. Camarillo who is on for spine surgery. Dr. Camarillo's recommendation is MRI lumbar spine given patient will require admission for intractable pain. Hospitalist accepted admission. Impression: 1. Intractable lumbar back pain, acute on chronic back pain 2. Multilevel degenerative disc disease and spondylosis of the lumbar spine 2. Moderate to severe central canal stenosis and severe bilateral neuroforaminal narrowing at L5-S1 3. Superimposed right subarticular disc protrusion at L5-S1 with mass effect on the right S1 nerve as well as left S1 nerve Lab Data Labs: Laboratory Results - last 24 hr 09/02/24 04:35 WBC 10.3 RBC 4.55 L Hgb 14.5 Hct 41.1 MCV 90.3 MCH 31.9 MCHC 35.3 RDW Std Deviation 39.1 RDW Coeff of Mikhail 11.9 Plt Count 298 MPV 9.8 Immature Gran % (Auto) 0.400 Neut % (Auto) 49.4 Lymph % (Auto) 40.0 [place] % (Auto) 8.1 Eos % (Auto) 1.6 Baso % (Auto) 0.5 Absolute Neuts (auto) 5.1 Absolute Lymphs (auto) 4.10 Nucleated RBC % 0 Sodium 138 Potassium 3.5 Chloride 104 Carbon Dioxide 29.0 Anion Gap 6 BUN 28 H Creatinine 0.92 Estim Creat Clear Calc 91.73 Est GFR (MDRD) Af Amer 108 Est GFR (MDRD) Non-Af 89 BUN/Creatinine Ratio 30.3 H Glucose 105 Calcium 8.8 Radiography Diagnostic Testing: Clinical Impression(s) from Imaging Studies Lumbar Spine CT 09/02/24 04:24 IMPRESSION: 1. No acute fracture. 2. Multilevel degenerative disc disease and spondylosis greatest at L5-S1 with moderate to severe central canal stenosis and severe bilateral neural foraminal narrowing. Additionally, there is suggestion of a superimposed right subarticular disc protrusion at L5-S1 with mass effect on the right S1 nerve as well as abutment of the left S1 nerve from the disc bulge. Findings can be better assessed with MRI on an outpatient basis. One or more dose reduction techniques were used (e.g., Automated exposure control, adjustment of the mA and/or kV according to patient size, use of iterative reconstruction technique). Reading Location: [facility] Discharge Plan Triage Chief Complaint: Back ED Provider: Leo Wiggins Dx/Rx/DC Orders Prescriptions: No Action sertraline [Zoloft] 50 mg tablet 50 mg PO DAILY cholecalciferol (vitamin D3) 50 mcg (2,000 unit) capsule 50 mcg PO DAILY Probiotic 3 billion cell capsule 3,000 mmu cells PO DAILY Rx Instructions: administer with a meal multivitamin Tablet 1 tab PO DAILY levothyroxine 137 mcg tablet 137 mcg PO DAILY meloxicam 7.5 mg tablet 7.5 mg PO BID Primary Care Provider: Deo Oglesby Referrals: Deo Oglesby MD [Primary Care Provider] - Print Language: Greenlandic
--- NOTE | 2024-09-02 04:24 | CT_ITS ---
PROCEDURE: SPINE LUMBAR WITHOUT CONTRAST CT SPINE LUMBAR WITHOUT CONTRAST REASON FOR EXAM: Low back pain. Degenerative disc disease.. TECHNIQUE: Lumbar spine CT without contrast. COMPARISON: Lumbar spine x-ray from 08/28/2024. FINDINGS: There is minimal chronic anterior wedging of L1. No acute fracture or subluxation is identified. Multilevel degenerative changes are present with disc space narrowing and endplate spurring which is on a severe basis at L5-S1 with endplate degenerative changes. There is mild retrolisthesis of L5-S1. There is mild levoscoliosis of the lower lumbar spine and mild dextroscoliosis of the mid lumbar spine. Bilateral sacroiliac joints are symmetric. Partial visualization of the abdomen and pelvis demonstrates colonic diverticulosis. There are atherosclerotic calcifications of the abdominal aorta. Individual levels: L1-2: Disc bulge and facet arthropathy results in mild central canal stenosis and mild bilateral neural foraminal narrowing. L2-3: Disc bulge and facet/flavum hypertrophy results in mild central canal stenosis and mild bilateral neural foraminal narrowing. L3-4: Disc bulge and facet/flavum hypertrophy results in mild central canal stenosis. There is moderate left and mild right neural foraminal narrowing. L4-5: Disc bulge and facet/flavum hypertrophy results in moderate central canal stenosis and moderate bilateral neural foraminal narrowing. L5-S1: Mild retrolisthesis with disc osteophyte complex and facet arthropathy results in moderate to severe central canal stenosis. There is suggestion of a superimposed right subarticular disc protrusion with mass effect on the right S1 nerve. There is abutment of the left S1 nerve from the disc bulge. Severe bilateral neural foraminal narrowing is present. CT/Spine Lumbar without Contrast IMPRESSION: 1. No acute fracture. 2. Multilevel degenerative disc disease and spondylosis greatest at L5-S1 with moderate to severe central canal stenosis and severe bilateral neural foraminal narrowing. Additionally, there is suggestion of a superimposed right subarticular disc protrusion at L5-S1 with mass effect on the right S1 nerve as well as abutment of the left S1 nerve from the disc bulge. Findings can be better assessed with MRI on an outpatient basis. One or more dose reduction techniques were used (e.g., Automated exposure contr ol, adjustment of the mA and/or kV according to patient size, use of iterative reconstruction technique). Reading Location: [facility]
[2024-09-02] MEDS: Morphine 4 MG/ML Syringe IV ×2 (04:34→06:09)
[2024-09-02] MEDS: Ondansetron 4 MG/2 ML Vial IV (04:34)
[2024-09-02] MEDS: Ketorolac 30 MG/ML Syringe IM (04:34)
[2024-09-02 04:42] LABS: Absolute Neutrophil Count 5.1 X10^3/uL (2.0-7.7); Basophil# 0.05 X10^3/uL; Basophil% 0.5 % (0-1); Eosinophil# 0.16 X10^3/uL; Eosinophils% 1.6 % (0-5); Hematocrit 41.1 % (40-54); Hemoglobin 14.5 g/dL (13.0-16.5); Mean Corp Hgb Conc 35.3 g/dL (32-36); Mean Corpuscular Hgb 31.9 pg (27.0-32.0); Mean Corpuscular Volume 90.3 fL (80-94); Mean Platelet Vol. 9.8 fl (6.2-12.0); Monocyte# 0.83 X10^3/uL; Monocyte% 8.1 % (0-10); NRBC Flagged by Analyzer 0 % (0-5); Neutrophil # 5.07 X10^3/uL (2.7-7.7); Neutrophil % 49.4 % (47-70); Platelet Count 298 K/mm3 (150-450); RBC Distribution Width CV 11.9 % (11.6-14.6); RBC Distribution Width SD 39.1 fl (35.1-43.9); Red Blood Count 4.55 M/mm3 (4.6-6.2); White Blood Count 10.3 K/mm3 (4.4-11.0)
[2024-09-02 04:59] LABS: Anion Gap 6 (5-15); BUN 28 mg/dL (7-18); BUN/Creat Ratio 30.3 RATIO (10-20); Calcium,Total 8.8 mg/dL (8.5-10.1); Chloride 104 mmol/L (98-107); Creatinine, Serum 0.92 mg/dL (0.70-1.30); EST Glomerular Filtration Rate 89 mL/min (>60); Est Glom Filt Rate - Afr Amer 108 mL/min (>60); Estimated Creatinine Clearance 91.73 ml/min; Glucose 105 mg/dL (74-106); Potassium 3.5 mmol/L (3.5-5.1); Sodium Level 138 mmol/L (136-145)
--- NOTE | 2024-09-02 06:13 | HP.PCM.HOS_ITS ---
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 ED on 09/02/2024 with persistent intractable back pain in the lumbar region with radiculopathy of the left lower extremity with no paresthesias or focal weakness nor any issues with bowel or bladder which has been ongoing for approximately 1 week despite several attempts at evaluation with chiropractic evaluation, massotherapy which he notes actually made it worse and recent PCP evaluation with plain films with outpatient tramadol and prednisone with no recent fevers or chills but given persistent ongoing pain currently rated 7 out of 10 in severity prompted ED evaluation. He notes he has not been able to sleep well because of his discomfort. He notes that his discomfort actually improves with movement to some degree. Workup in the ED included T97.7, heart rate 76, BP 149/102, respiratory rate 18, 99% on room air, CBC with WC 10.3, hemoglobin 14.5, platelet 298 without marked shift, BMP with BUN/creatinine 28/0.92, GFR 89 otherwise not marked appearing, CT of the lumbar spine with no acute fracture, multilevel degenerative disc disease and spondylosis greatest at L5-S1 with moderate to severe central canal stenosis and severe bilateral neuroforaminal narrowing with additional suggestion of superimposed right subarticular disc protrusion at L5-S1 with mass effect on the right S1 nerve as well as abutment of the left S1 nerve from the disc bulge. In the ED patient ministered Zofran 4 mg IV x 1, morphine 4 mg IV x 2, Toradol 30 mg IM x 1, Dilaudid 1 mg IM x 1, Valium 5 mg p.o. x 1. [facility] Medical History Hypothyroidism Anxiety and depression Lumbago with sciatica, left side Lumbar strain Wears glasses Wears dentures Complex regional pain syndrome I Nail deformity Foreign body finger Drug abuse Sarcoma Bone fracture Home Medications ?Medication ?Instructions ?Recorded ?Last Taken ?Type cholecalciferol (vitamin D3) 50 50 mcg PO DAILY Unknown History mcg (2,000 unit) capsule lactobacillus combination no.4 3 3,000 mmu cells PO DA RUT 08/08/23 Unknown History billion cell capsule (Probiotic) multivitamin 1 tab PO DAILY 08/08/23 Unkn own History sertraline 50 mg tablet (Zoloft) 50 mg PO DAILY 10/01/23 History levothyroxine 137 mcg tablet 137 mcg PO DAILY 09/02/24 Unknown History meloxicam 7.5 mg tablet 7.5 mg PO BID 09/02/24 Unkno wn History Allergy/AdvReac Type Severity Reaction Status Date / Time succinylcholine chloride Allergy Other Verified 09/02/24 02:14 (From Anectine) Family History Mother Diabetes Heart disease Hypertension Brother CVA (cerebral vascular accident) Surgical History S/P inguinal hernia repair History of sarcoma S/P wrist surgery History of shoulder surgery Social History household members: spouse Smoking Status: Former smoker second hand exposure: Yes alcohol intake: never substance use type: former substance user what type of physical activity do you participate in: other seatbelt use: never additional social history: SUN EXPOSURE: FREQUENTLY ROS ROS Narrative Admission Review of Systems: CONSTITUTIONAL: No weight loss, fever, chills, + weakness or fatigue. HEENT: Eyes: No visual loss, blurred vision, double vision or yellow sclerae. Ears, Nose, Throat: No hearing loss, sneezing, congestion, runny nose or sore throat. SKIN: No rash or itching, lesions, wounds. CARDIOVASCULAR: No chest pain, chest pressure or chest discomfort, palpitations, edema, orthopnea, syncopal events. RESPIRATORY: No shortness of breath, cough or sputum, wheezing, hemoptysis. GASTROINTESTINAL: No anorexia, nausea, vomiting or diarrhea, abdominal pain, melena, BRBPR. GENITOURINARY: No dysuria, frequency, urgency or retention. NEUROLOGICAL: + Lumbar back pain with left lower extremity radiculopathy. No headache, dizziness, syncope, paralysis, ataxia, numbness or tingling in the extremities, focal weakness, change in bowel or bladder control, seizure. MUSCULOSKELETAL: + muscle, back pain, joint pain or stiffness. HEMATOLOGIC: No anemia, bleeding or bruising. LYMPHATICS: No enlarged nodes. No history of splenectomy. PSYCHIATRIC: + History of anxiety and depression. ENDOCRINOLOGIC: No reports of sweating, cold or heat intolerance. No polyuria or polydipsia. ALLERGIES: No history of asthma, hives, eczema or rhinitis. Vital Signs Vital Signs Vital Signs: 09/02/24 02:15 09/02/24 02:19 09/02/24 06:05 Temperature 97.7 F L 98.9 F Temperature Source Oral Pulse Rate 76 78 Respiratory Rate 18 14 Blood Pressure 149/102 H 136/100 H Blood Pressure Mean 117 112 Pulse Ox 99 99 Oxygen Delivery Method Room Air Weight Weight: 189 lb 13.088 oz Body Mass Index (BMI) 29.7 Physical Exam Narrative Physical Examination: General: Awake, alert, oriented x 3 and cooperative, partially laying in the ED bed, appears uncomfortable, rating back discomfort 7 out of 10 in severity. Skin: Normal color, normal turgor, no icterus, no cyanosis, several tattoos. HEENT: AT/NC, EOMI, PERRLA, dry MM, no carotid bruits or JVD noted, notable ear gauges in earrings which he states can come out. Lungs: Mild diminished, greater bases, poor effort, no rales, ronchi or wheezing. Heart: Regular rate and rhythm; no gallop, rub audible. Abdomen: Soft, NTTP, ND, mildly hyperactive BS, no HSM. Extremities: No cyanosis, clubbing, or edema. Neurological: Patient awake, alert, oriented as noted, cognitive function intact; pupils equally reactive to light and accommodation, cranial nerves grossly normal, moving all 4 extremities, no focal deficits, sensation intact, strength severely globally decreased secondary to intractable back pain. Psychiatric: Affect appears fatigued, uncomfortable, no acute evidence of depressive or anxiety feelings but does have underlying history. Results Lab / Micro Data 09/02/24 04:35 09/02/24 04:35 Labs: Laboratory Results - last 24 hr 09/02/24 04:35: WBC 10.3, RBC 4.55 L, Hgb 14.5, Hct 41.1, MCV 90.3, MCH 31.9, MCHC 35.3, RDW Std Deviation 39.1, RDW Coeff of Mikhail 11.9, Plt Count 298, MPV 9.8, Immature Gran % (Auto) 0.400, Neut % (Auto) 49.4, Lymph % (Auto) 40.0, [place] % (Auto) 8.1, Eos % (Auto) 1.6, Baso % (Auto) 0.5, Absolute Neuts (auto) 5.1, Absolute Lymphs (auto) 4.10, Nucleated RBC % 0, Sodium 138, Potassium 3.5, Chloride 104, Carbon Dioxide 29.0, Anion Gap 6, BUN 28 H, Creatinine 0.92, Estim Creat Clear Calc 91.73, Est GFR (MDRD) Af Amer 108, Est GFR (MDRD) Non-Af 89, B UN/Creatinine Ratio 30.3 H, Glucose 105, Calcium 8.8 Imaging Radiology Impression Lumbar Spine CT 09/02/24 04:24 IMPRESSION: 1. No acute fracture. 2. Multilevel degenerative disc disease and spondylosis greatest at L5-S1 with moderate to severe central canal stenosis and severe bilateral neural foraminal narrowing. Additionally, there is suggestion of a superimposed right subarticular disc protrusion at L5-S1 with mass effect on the right S1 nerve as well as abutment of the left S1 nerve from the disc bulge. Findings can be better assessed with MRI on an outpatient basis. One or more dose reduction techniques were used (e.g., Automated exposure control, adjustment of the mA and/or kV according to patient size, use of iterative reconstruction technique). 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 ED on 09/02/2024 with persistent intractable back pain in the lumbar region with radiculopathy of the left lower extremity with no paresthesias or focal weakness nor any issues with bowel or bladder which has been ongoing for approximately 1 week despite several attempts at evaluation with chiropractic evaluation, massotherapy which he notes actually made it worse and recent PCP evaluation with plain films with outpatient tramadol and prednisone with no recent fevers or chills but given persistent ongoing pain currently rated 7 out of 10 in severity prompted ED evaluation. #1. Acute Intractable Back Pain with left lower extremity radiculopathy: Will admit to [facility], maintain on fall precautions, frequent positioning, initiate scheduled IV toradol, lidocaine topical patches, scheduled x 1 dose tizanidine with as needed following, medrol dose pack, low-dose 3 times daily gabapentin with first dose now and may increase as needed, po/IV narcotic pain regimen, anti-emetics, bowel regimen. Will request MRI of the lumbar spine and given history will obtain with and without contrast. [facility]ospine consulted Dr. Camarillo with evaluation pending. Will consult PT and OT for evaluation as well as Case management for discharge planning. #2. Elevated BP without hypertensive diagnosis: BP above goal in the ED, possibly pain related, will continue to monitor and if remains elevated will add oral regimen if appropriate, as needed IV hydralazine in the interim. #3. Chronic Kidney Disease Stage II-I per GFR trending: Admission BUN/Cr 28/0.92, GFR 89 and from review ranges in the 80s to mid 90s, baseline renal function 0.8-1.1, repeat BMP in AM. #4. History of sarcoma: Patient with history of previous right shoulder sarcoma, status postresection with thoracotomy and rib resection, consider admission, encourage follow-up outpatient as previously arranged. #5. Former tobacco use: Encourage continued tobacco cessation. #6. Anxiety and depression: We will continue patient home sertraline regimen. #7. Hypothyroidism: Continue home levothyroxine regimen. #8. Former substance abuse: Noted previous history remotely of prior cocaine, clean > decade, encourage continued clean status. #9. DVT prophylaxis: Lovenox. Charges/Coding Visit Charges Inpatient E&M: 59986 Init Hosp L2
--- NOTE | 2024-09-02 06:39 | MRI_ITS ---
PROCEDURE: SPINE LUMBAR W/WO CONTRAST REASON FOR EXAM: 58-year-old male, back pain. TECHNIQUE: Lumbar spine MRI without and with intravenous gadolinium-based contrast. CONTRAST: Gadolinium. COMPARISON: Same day CT L-spine. FINDINGS: Vertebrae: Lumbar vertebral body heights are preserved. Type 1 Modic changes of the right superior L5 vertebral body, compatible with degenerative changes. Bone marrow signal is unremarkable. Alignment: Normal. No spondylolisthesis. Conus Medullaris: Normally positioned, terminating at the L1 vertebral body. L1-2: Mild symmetric disc bulging without significant central canal narrowing. Bilateral facet arthropathy resulting in mild bilateral neural foraminal narrowing. L2-3: Symmetric disc bulging and bilateral facet arthropathy resulting in mild central and moderate bilateral neural foraminal narrowing. L3-4: Disc extrusion with migration superiorly along the L3 vertebral body, asymmetric along the left sub articular and foraminal zones, resulting in moderate central canal narrowing. Disc extrusion and facet arthropathy results in mild right and severe left foraminal stenosis. L4-5: Diffuse disc bulging, slightly asymmetric to the right, with facet arthropathy results in moderate central and moderate left and severe right foraminal stenosis. L5-S1: Mild retrolisthesis with diffuse disc bulging and facet arthropathy results in severe central and bilateral neural foraminal stenosis. Sacrum: Visualized upper sacrum and SI joints are unremarkable. Postcontrast images: Unremarkable. No abnormal enhancing lesion identified. MRI/Spine Lumbar W/WO Contrast IMPRESSION: 1. No contrast enhancing spinal lesion. 2. Multilevel degenerative changes, resulting in severe central and bilateral n eural foraminal stenosis as described. Reading Location: [id number]
[2024-09-02] MEDS: 0.9% Normal Saline (1000mL) 1,000 ML 100 ML IV (07:50)
[2024-09-02] MEDS: 0.9% Saline Lock 10 ML Syringe IV (07:58)
[2024-09-02] MEDS: tiZANidine HCl 2 MG Tablet 4 MG PO (07:59)
[2024-09-02] MEDS: Gabapentin 100 MG Capsule PO ×3 (07:59→17:13)
[2024-09-02] MEDS: Ketorolac 30 MG/ML Syringe IV ×2 (07:59→14:32)
[2024-09-02] MEDS: Lidocaine 5% Patch 2 PATCH TOPICAL (07:59)
[2024-09-02] MEDS: oxyCODONE 5 MG Tablet PO ×3 (08:05→21:17)
[2024-09-02] MEDS: MethylPREDNISolone DosePak 4 MG BOX PO ×2 (09:26→11:03)
[2024-09-02] MEDS: Enoxaparin 40 MG/0.4 ML Syringe SC (09:27)
[2024-09-02] MEDS: Lactobacillis Acidophilus 1 CAP PO (09:27)
[2024-09-02] MEDS: Sertraline 50 MG Tablet PO (09:27)
[2024-09-02] MEDS: FLU VACC 2024-25(6MOS UP)/PF 45 MCG/0.5 ML SYRINGE IM (10:20)
[2024-09-02] MEDS: HYDROmorphone 0.5 MG/0.5 ML SYRINGE IV ×3 (11:03→18:35)
--- NOTE | 2024-09-02 12:26 | CONS.ORTHO ---
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, Former substance abuse who presents to the [facility] ED on 09/02/2024 with persistent intractable back pain in the lumbar region with radiculopathy of the left lower extremity with no paresthesias or focal weakness nor any issues with bowel or bladder which has been ongoing for approximately 1 week despite several attempts at evaluation with chiropractic evaluation, massotherapy which he notes actually made it worse and recent PCP evaluation with plain films with outpatient tramadol and prednisone with no recent fevers or chills but given persistent ongoing pain currently rated 7 out of 10 in severity prompted ED evaluation. He notes he has not been able to sleep well because of his discomfort. He notes that his discomfort actually improves with movement to some degree. Workup in the ED included T97.7, heart rate 76, BP 149/102, respiratory rate 18, 99% on room air, CBC with WC 10.3, hemoglobin 14.5, platelet 298 without marked shift, BMP with BUN/creatinine 28/0.92, GFR 89 otherwise not marked appearing, CT of the lumbar spine with no acute fracture, multilevel degenerative disc disease and spondylosis greatest at L5-S1 with moderate to severe central canal stenosis and severe bilateral neuroforaminal narrowing with additional suggestion of superimposed right subarticular disc protrusion at L5-S1 with mass effect on the right S1 nerve as well as abutment of the left S1 nerve from the disc bulge. In the ED patient ministered Zofran 4 mg IV x 1, morphine 4 mg IV x 2, Toradol 30 mg IM x 1, Dilaudid 1 mg IM x 1, Valium 5 mg p.o. x 1. Last Monday at work when he was lifting and twisting with a clamp his pain started. On Monday he went and had a deep tissue massage which she says exacerbated his pain. After the massage she tried to do some stretching at home which also increased his pain. On Monday he went to the chiropractor for an adjustment which also increased the pain. he went to his family doctor who gave him some steroids and he took some remaining at home tramadol and a muscle relaxer. Says he has not noticed any significant relief. Says that he has a history of neck pain and had an injection by Dr. Briceno in the past which had improved his symptoms. He had a knee surgery in May done by Mahamed Islas. Says that that has healed up well and he just has some mild stiffness in his left knee. Says that his pain is primarily located over his left buttock and extends down his left leg stops at the knee. Denies any numbness or tingling into his feet or toes. [facility] Medical History Hypothyroidism Anxiety and depression Lumbago with sciatica, left side Lumbar strain Wears glasses Wears dentures Complex regional pain syndrome I Nail deformity Foreign body finger Drug abuse Sarcoma Bone fracture Home Medications ?Medication ?Instructions ?Recorded ?Last Taken ?Type cholecalciferol (vitamin D3) 50 50 mcg PO DAILY 08/08/23 Unknown History mcg (2,000 unit) capsule lactobacillus combination no.4 3 3,000 mmu cells PO DAILY 08/08/23 Unknown History billion cell capsule (Probiotic) multivitamin 1 tab PO DAILY 08/08/23 Unknown History sertraline 50 mg tablet (Zoloft) 50 mg PO DAILY 08/08/23 10/01/23 History levothyroxine 137 mcg tablet 137 mcg PO DAILY 09/02/24 Unknown History meloxicam 7.5 mg tablet 7.5 mg PO BID 09/02/24 Unknown History Allergy/AdvReac Type Severity Reaction Status Date / Time succinylcholine chloride Allergy Other Verified 09/02/24 02:14 (From Anectine) Family History Mother Diabetes Heart disease Hypertension Brother CVA (cerebral vascular accident) Surgical History S/P inguinal hernia repair History of sarcoma S/P wrist surgery History of shoulder surgery Social History household members: spouse Smoking Status: Former smoker second hand exposure: Yes alcohol intake: never substance use type: former substance user what type of physical activity do you participate in: other seatbelt use: never additional social history: SUN EXPOSURE: FREQUENTLY Vital Signs Vital Signs Vital Signs: 09/02/24 02:15 09/02/24 02:19 09/02/24 06:05 Temperature 97.7 F L 98.9 F Temperature Source Oral Pulse Rate 76 78 Respiratory Rate 18 14 Respiratory Effort Respiratory Depth Respiratory Pattern Blood Pressure 149/102 H 136/100 H Blood Pressure Mean 117 112 Blood Pressure Source Blood Pressure Position Blood Pressure Location Pulse Ox 99 99 Oxygen Delivery Method Room Air 09/02/24 06:14 09/02/24 08:11 09/02/24 08:15 Temperature 97.7 F L Temperature Source Oral Pulse Rate 71 68 Respiratory Rate 16 18 Respiratory Effort Normal Non-Labored Respiratory Depth Normal Respiratory Pattern Normal Blood Pressure 126/82 H 143/99 H Blood Pressure Mean 96 113 Blood Pressure Source Monitor Blood Pressure Position Semi-Fowlers Blood Pressure Location Right Arm Pulse Ox 97 100 Oxygen Delivery Method Room Air Room Air Room Air Weight Weight: 184 lb Body Mass Index (BMI) 28.8 Physical Exam Narrative Neurological exam of the lower extremity shows 5X5 power. Increased pain with knee extension of the left leg. Normal sensation across all dermatomes. Passive straight leg raise positive on the left. Const alert, oriented x3 and no apparent distress Lab / Micro Data 09/02/24 04:35 09/02/24 04:35 Labs: Laboratory Results - last 24 hr 09/02/24 04:35: WBC 10.3, RBC 4.55 L, Hgb 14.5, Hct 41.1, MCV 90.3, MCH 31.9, MCHC 35.3, RDW Std Deviation 39.1, RDW Coeff of Mikhail 11.9, Plt Count 298, MPV 9.8, Immature Gran % (Auto) 0.400, Neut % (Auto) 49.4, Lymph % (Auto) 40.0, [place] % (Auto) 8.1, Eos % (Auto) 1.6, Baso % (Auto) 0.5, Absolute Neuts (auto) 5.1, Absolute Lymphs (auto) 4.10, Nucleated RBC % 0, Sodium 138, Potassium 3.5, Chloride 104, Carbon Dioxide 29.0, Anion Gap 6, BUN 28 H, Creatinine 0.92, Estim Creat Clear Calc 91.73, Est GFR (MDRD) Af Amer 108, Est GFR (MDRD) Non-Af 89, BUN/Creatinine Ratio 30.3 H, Glucose 105, Calcium 8.8 Imaging Radiology Impression Lumbar Spine CT 09/02/24 04:24 IMPRESSION: 1. No acute fracture. 2. Multilevel degenerative disc disease and spondylosis greatest at L5-S1 with moderate to severe central canal stenosis and severe bilateral neural foraminal narrowing. Additionally, there is suggestion of a superimposed right subarticular disc protrusion at L5-S1 with mass effect on the right S1 nerve as well as abutment of the left S1 nerve from the disc bulge. Findings can be better assessed with MRI on an outpatient basis. One or more dose reduction techniques were used (e.g., Automated exposure control, adjustment of the mA and/or kV according to patient size, use of iterative reconstruction technique). Reading Location: [facility] Assessment & Plan Assessment/Plan (1) Lumbar radiculopathy: (2) Intractable back pain: PLAN: Plan Lumbar x-rays from 08/28 show minimal chronic compression deformity of L1, mild to severe multilevel disc space narrowing, greatest at L5-S1, moderate lower lumbar facet arthrosis from L4 through S1. Lumbar spine CT from today shows multilevel degenerative disc disease and spondylosis greatest at L5-S1 with moderate to severe central canal stenosis and severe bilateral neural foraminal narrowing. Awaiting lumbar MRI. Explained imaging findings in detail. Explained that at this time we are waiting for the lumbar MRI to see if he has a disc herniation. Discussed options with the patient if there is a disc herniation as well as treatment options for degenerative changes in the lumbar back. He has done physical therapy in the past for his back and has seen Dr. Briceno for injections for his neck. Documented by User: Dr. Alberto Camarillo MD 09/02/24 14:28 HPI Consult Data Date of Consult: 09/02/24 [facility] Medical History Hypothyroidism Anxiety and depression Lumbago with sciatica, left side Lumbar strain Wears glasses Wears dentures Complex regional pain syndrome I Nail deformity Foreign body finger Drug abuse Sarcoma Bone fracture Home Medications ?Medication ?Instructions ?Recorded ?Last Taken ?Type cholecalciferol (vitamin D3) 50 50 mcg PO DAILY 08/08/23 Unknown History mcg (2,000 unit) capsule lactobacillus combination no.4 3 3,000 mmu cells PO DAILY 08/08/23 Unknown History billion cell capsule (Probiotic) multivitamin 1 tab PO DAILY 08/08/23 Unknown History sertraline 50 mg tablet (Zoloft) 50 mg PO DAILY 08/08/23 10/01/23 History levothyroxine 137 mcg tablet 137 mcg PO DAILY 09/02/24 Unknown History meloxicam 7.5 mg tablet 7.5 mg PO BID 09/02/24 Unknown History Allergy/AdvReac Type Severity Reaction Status Date / Time succinylcholine chloride Allergy Other Verified 09/02/24 02:14 (From Anectine) Family History Mother Diabetes Heart disease Hypertension Brother CVA (cerebral vascular accident) Surgical History S/P inguinal hernia repair History of sarcoma S/P wrist surgery History of shoulder surgery Social History household members: spouse Smoking Status: Former smoker second hand exposure: Yes alcohol intake: never substance use type: former substance user what type of physical activity do you participate in: other seatbelt use: never additional social history: SUN EXPOSURE: FREQUENTLY Lab / Micro Data 09/02/24 04:35 09/02/24 04:35 Assessment & Plan Assessment/Plan (1) Lumbar radiculopathy: (2) Intractable back pain: PLAN: Plan Lumbar x-rays from 08/28 show minimal chronic compression deformity of L1, mild to severe multilevel disc space narrowing, greatest at L5-S1, moderate lower lumbar facet arthrosis from L4 through S1. Lumbar spine CT from today shows multilevel degenerative disc disease and spondylosis greatest at L5-S1 with moderate to severe central canal stenosis and severe bilateral neural foraminal narrowing. Awaiting lumbar MRI. Explained imaging findings in detail. Explained that at this time we are waiting for the lumbar MRI to see if he has any acute pathology. Discussed common pathologies that seem to fit his history which could be disc herniation causing the left lower extremity radiculopathy versus severe aggravation of chronic disc degeneration and stenosis. Discussed options with the patient if there is a disc herniation as well as treatment options for degenerative changes in the lumbar back. He has done physical therapy in the past for his back and has seen Dr. Briceno for injections for his neck. Will review MRI when done. Answered all questions. Charges/Coding Visit Charges Inpatient E&M: 86391 Init Hosp L3
--- NOTE | 2024-09-02 14:00 | RAD_ITS ---
PROCEDURE: ORBITS FOR FOREIGN BODY REASON FOR EXAM: Pre MRI examination in patient with history of metal to the eyes. TECHNIQUE: 2 view(s) of the orbits. COMPARISON: None. RAD/Orbits for Foreign Body IMPRESSION: No intraorbital metal is seen. The visualized paranasal sinuses and mastoid air cells appear clear. No acute osseous process is seen. Reading Location: [id number]
[2024-09-02] MEDS: Acetaminophen 325 MG Tablet 650 MG PO ×2 (14:30→21:17)
--- NOTE | 2024-09-02 15:43 | CPS ---
Patient in MRI
[2024-09-02] MEDS: dexAMETHasone 4 MG/ML Vial IV (17:15)
--- NOTE | 2024-09-02 19:29 | PN.HOSP_ITS ---
Reason for Visit Reason for Visit: Diagnoses Radiculopathy, lumbar region (09/02/24) Lumbago with sciatica, left side (09/02/24) Dorsalgia, unspecified (09/02/24) Subjective Subjective Patient was seen and examined today, his MRI resulted and showing multilevel disc disease in addition to a disc extrusion at L3-L4, I talked with spinal surgery about his care and I also talked with pain management regarding an epidural injection tomorrow. Objective Data Objective Data Vital Signs: Vital Signs Temp Pulse Resp BP Pulse Ox O2 Del Method 97.8 F 76 18 136/93 H 98 Room Air 09/02/24 14:35 09/02/24 14:35 09/02/24 14:35 09/02/24 14:35 09/02/24 14:35 09/02/24 14:35 Oxygen Delivery Method Room Air Weight: 83.461 kg Body Mass Index (BMI) 28.8 Intake & Output: Intake and Output for Last 24 Hours 08/31/24 09/01/24 09/02/24 23:59 23:59 23:59 Intake Total 1000 / 1000 Balance 1000 / 1000 Lab / Micro Data 09/02/24 04:35 09/02/24 04:35 Labs: Laboratory Results - last 24 hr 09/02/24 04:35: WBC 10.3, RBC 4.55 L, Hgb 14.5, Hct 41.1, MCV 90.3, MCH 31.9, MCHC 35.3, RDW Std Deviation 39.1, RDW Coeff of Mikhail 11.9, Plt Count 298, MPV 9.8, Immature Gran % (Auto) 0.400, Neut % (Auto) 49.4, Lymph % (Auto) 40.0, Ellsworth % (Auto) 8.1, Eos % (Auto) 1.6, Baso % (Auto) 0.5, Absolute Neuts (auto) 5.1, Absolute Lymphs (auto) 4.10, Nucleated RBC % 0, Sodium 138, Potassium 3.5, Chloride 104, Carbon Dioxide 29.0, Anion Gap 6, BUN 28 H, Creatinine 0.92, Estim Creat Clear Calc 91.73, Est GFR (MDRD) Af Amer 108, Est GFR (MDRD) Non-Af 89, B UN/Creatinine Ratio 30.3 H, Glucose 105, Calcium 8.8 Radiography Diagnostic Testing: Radiology Impression Lumbar Spine CT 09/02/24 04:24 IMPRESSION: 1. No acute fracture. 2. Multilevel degenerative disc disease and spondylosis greatest at L5-S1 with moderate to severe central canal stenosis and severe bilateral neural foraminal narrowing. Additionally, there is suggestion of a superimposed right subarticular disc protrusion at L5-S1 with mass effect on the right S1 nerve as well as abutment of the left S1 nerve from the disc bulge. Findings can be better assessed with MRI on an outpatient basis. One or more dose reduction techniques were used (e.g., Automated exposure control, adjustment of the mA and/or kV according to patient size, use of iterative reconstruction technique). Reading Location: [facility] Lumbar Spine MRI 09/02/24 06:39 IMPRESSION: 1. No contrast enhancing spinal lesion. 2. Multilevel degenerative changes, resulting in severe central and bilateral neural foraminal stenosis as described. Reading Location: [facility] Orbit X-Ray 09/02/24 14:00 IMPRESSION: No intraorbital metal is seen. The visualized paranasal sinuses and mastoid air cells appear clear. No acute osseous process is seen. Reading Location: [address] Physical Exam Const alert, oriented x3, no apparent distress, average body habitus and healthy appearing General Appearance: cooperative, well kempt and well developed Orientation / Consciousness: awake, oriented to person, oriented to place and oriented to time HEENT normocephalic, head/scalp atraumatic and moist oral mucous membranes Eyes PERRL, EOMs intact bilaterally and conjunctivae normal Neck supple, no JVD, thyroid normal and no carotid bruits General: trachea midline Resp normal respiratory effort, no retractions, no use of accessory muscles and clear to auscultation bilaterally Auscultation: Negative for rales, rhonchi or wheezes Cardio regular rate, regular rhythm, S1 normal heart sound, S2 normal heart sound, no murmurs, no rub and no gallops GI normal to inspection, nondistended, normoactive bowel sounds, soft to palpation, non-tender and non-distended Extremity no clubbing, cyanosis or edema Skin no rashes or lesions noted General Skin Exam: no breakdown Neuro oriented x3, CN's II-XII intact bilaterally, moves all extremities, no focal motor deficits and no sensory deficits noted Neuro Narrative: Patient was not ambulated during my visit Sensorium / Orientation: awake, alert, oriented to person, oriented to place and oriented to time Speech: speech normal Psych affect normal Assessment & Plan Assessment/Plan (1) Lumbar radiculopathy: PLAN: Plan 1. Lumbar radiculopathy secondary to degenerative disc disease of the lower lumbar spine-again patient will be seen by pain management tomorrow, I placed the patient on IV Decadron in the meantime, spinal surgery is participating in his care #2 uncontrolled low back pain secondary to lumbar radiculopathy and degenerative disc disease of the lumbar spine-patient will continue on his present pain medications, I have stopped his Toradol due to the fact that I placed him on IV corticosteroids #3 hypothyroidism-patient is on Synthroid #4 chronic depression/anxiety-patient is on Zoloft Total clinical time spent by myself addressing patient's medical issues, reviewing all of his data, and collaborating with patient's care team: 35-minute
--- NOTE | 2024-09-02 21:03 | PCM.HOSP.N ---
Hospitalist Note I talked with the patient tonight, I also talked with his via telephone while I was in the room talking with the patient, patient would like Dr. Smith for pain management rather than Dr. Justice, I contacted Dr. Smith and he will try to perform an epidural tomorrow morning, I also let Dr. Justice know that I was taking his consult out.
[2024-09-02] MEDS: tiZANidine HCl 2 MG Tablet PO (21:16)
[2024-09-02] MEDS: Temazepam 15 MG Capsule PO (21:16)
[2024-09-03] VITALS (13 sets, daily range): BP systolic 98–158; BP diastolic 69–99; PULSE 69–91; RESP 16–20; TEMP 36.1–37; O2SAT 92–100; BMI 28.9
[2024-09-03] MEDS: 0.9% Saline Lock 10 ML Syringe IV ×4 (00:55→13:08)
[2024-09-03] MEDS: dexAMETHasone 4 MG/ML Vial IV ×3 (00:57→13:08)
[2024-09-03] MEDS: Senna/Docusate Sodium 1 Tablet 2 TABLET PO (01:15)
[2024-09-03] MEDS: Acetaminophen 325 MG Tablet 650 MG PO ×2 (01:16→06:52)
[2024-09-03] MEDS: oxyCODONE 5 MG Tablet PO ×2 (01:16→06:52)
[2024-09-03] MEDS: Levothyroxine 137 MCG Tablet PO (04:36)
[2024-09-03] MEDS: tiZANidine HCl 2 MG Tablet PO (04:36)
[2024-09-03 06:34] LABS: Absolute Lymphocyte Count 0.86 X10^3/uL (0.83-4.51); Absolute Neutrophil Count 9.1 X10^3/uL (2.0-7.7); Basophil# 0.01 X10^3/uL; Basophil% 0.1 % (0-1); Hematocrit 42.2 % (40-54); Hemoglobin 14.7 g/dL (13.0-16.5); Lymphocyte # 0.86 X10^3/ul (0.83-4.51); Lymphocyte % 8.4 % (19-41); Mean Corp Hgb Conc 34.8 g/dL (32-36); Mean Corpuscular Hgb 31.5 pg (27.0-32.0); Mean Corpuscular Volume 90.4 fL (80-94); Mean Platelet Vol. 10.2 fl (6.2-12.0); Monocyte# 0.26 X10^3/uL; Monocyte% 2.5 % (0-10); NRBC Flagged by Analyzer 0 % (0-5); Neutrophil # 9.05 X10^3/uL (2.7-7.7); Neutrophil % 88.5 % (47-70); Platelet Count 279 K/mm3 (150-450); RBC Distribution Width CV 11.9 % (11.6-14.6); Red Blood Count 4.67 M/mm3 (4.6-6.2); White Blood Count 10.2 K/mm3 (4.4-11.0)
[2024-09-03 07:05] LABS: AST(SGOT) 82 U/L (15-37); Alanine Aminotransfer ALT/SGPT 227 U/L (16-61); Albumin, Serum 3.5 g/dL (3.2-5.0); Alkaline Phosphatase 84 U/L (45-117); Anion Gap 6 (5-15); BUN 21 mg/dL (7-18); Calcium,Total 9.2 mg/dL (8.5-10.1); Chloride 105 mmol/L (98-107); Creatinine, Serum 0.81 mg/dL (0.70-1.30); EST Glomerular Filtration Rate 104 mL/min (>60); Est Glom Filt Rate - Afr Amer 126 mL/min (>60); Estimated Creatinine Clearance 102.84 ml/min; Globulin 3.5 g/dL (2.2-4.2); Glucose 147 mg/dL (74-106); Potassium 4.3 mmol/L (3.5-5.1); Sodium Level 139 mmol/L (136-145)
[2024-09-03] MEDS: HYDROmorphone 0.5 MG/0.5 ML SYRINGE IV (08:44)
--- NOTE | 2024-09-03 10:43 | PRE.ANES_ITS ---
ASA Classification* ASA Classification ASA Classification: 2 Assessment & Plan Anesthesia* Anesthesia Assessment Anesthesia Assessment: Discussed sedation and/or anesthesia options, risks, benefits, and alternatives with patient/parents/legal guardian/POA. Questions invited. The patient/parents/legal guardian/POA seems to understand and agrees to proceed with anesthesia plan. Reviewed the physical assessment, medical history, allergy history and patient home medications list prior to surgery/procedure/anesthetic and documented any changes. Performed airway and anesthesia risk assessments. Anesthesia Type Anesthesia Type: MAC History Source History Obtained from:: Patient and Chart Anesthesia Focused Assessment* Temperature: 98.6 F Pulse Rate: 76 Blood Pressure: 148/78 Respiratory Rate: 18 Pulse Ox: 100 Oxygen Delivery Method: Room Air Airway Assessment Mouth opens: >3 cm Mallampati Score: III Teeth Condition: Dentures (Patient has full upper dentures.) and Missing (Patient is missing several teeth on the bottom. Nothing loose.) Neck Range of motion (ROM): Limited ROM (Somewhat decreased extension) Focused Labs Anesthesia Preop lab: CBC WBC 10.2 K/mm3 (4.4-11.0) 09/03/24 06:09 09/03/24 RBC 4.67 M/mm3 (4.6-6.2) 09/03/24 06:09 09/03/24 Hgb 14.7 g/dL (13.0-16.5) 09/03/24 06:09 09/03/24 Hct 42.2 % (40-54) 09/03/24 06:09 09/03/24 Plt Count 279 K/mm3 (150-450) 09/03/24 06:09 09/03/24 CHEMISTRY Potassium 4.3 mmol/L (3.5-5.1) 09/03/24 06:09 09/03/24 Sodium 139 mmol/L (136-145) 09/03/24 06:09 09/03/24 BUN 21 mg/dL (7-18) H 09/03/24 06:09 09/03/24 Creatinine 0.81 mg/dL (0.70-1.30) 09/03/24 06:09 09/03/24 Glucose 147 mg/dL (74-106) H 09/03/24 06:09 09/03/24 TSH 5.900 uIU/mL (0.358-3.740) H 05/07/24 17:00 COAG Pre-Assessment Diagnosis/Proposed Procedure Planned Operative Procedure(s): Transforaminal epidural steroid injection at lucinda mbar 3?4 and lumbar 4?5. Anesthesia History Anesthesia History - undercollar baster: Anesthesia History - undercollar baster Hx Hospitalization No 02/19/24 13:07 Any Problems With Anesthesia Yes: states cant have med 09/03/24 08:35 sux. cholinestr.deficiency. states Cholinesterase deficiency Yes: couldn 't wake up after 09/03/24 08:35 You/Your Family Experience No 09/03/24 08:35 fever (hyperthermia) with Relationship Recent Exposure to Contagious No 09/03/24 08:35 Disease Does patient have nerve No 09/03/24 08:35 stimulator Patient instructed to have No 09/03/24 08:35 device shut off --Does patient have Pacemaker No 09/03/24 08:35 or ICD? When Was Last Pacemaker Check QUESTION #4 FULL TEXT: You/Your Family Experience fever (hyperthermia) with Anesthesia Last Oral Intake Last Oral intake: Last Oral Intake NPO since 00:00 09/03/24 08:35 Meds taken in AM with sips of Yes 09/03/24 08:35 water? Meds patient instructed to 0630- pain meds and thyroid 09/03/24 08:35 take am of surgery med see MAR PONV PONV - undercollar baster: PONV - undercollar baster Female HX of Motion Sickness HX of N/V After Surgery Non-Smoker Duration of Surgery greater than 60 minutes Number of Risk Factors PONV Score Height & Weight Height & Weight: Anesthesia: Height & Weight Height 5 ft 7 in 09/03/24 08:35 Weight: 83.7 kg 09/03/24 08:35 Body Mass Index (BMI) 28.9 09/03/24 08:35 Respiratory Assessment Respiratory Assessment - undercollar baster: Respiratory Tract Infection Hx - undercollar baster Hx Respiratory Tract Infection No 09/03/24 08:35 STOP Sleep Apnea STOP Sleep Apnea - undercollar baster: STOP Sleep Apnea - undercollar baster Hx Hypertension No 09/02/24 06:38 Hx Sleep Apnea Yes 09/02/24 06:38 CPAP Yes: does not use 09/02/24 06:38 BIPAP No 09/02/24 06:38 Do you snore loudly (louder No 09/02/24 06:38 than talking or can be heard Do you often feel tired/ No 09/02/24 06:38 fatigued/ sleepy during daytime? Has anyone observed you stop No 09/02/24 06:38 breathing during sleep? STOP Results Positive 09/02/24 06:38 QUESTION #5 FULL TEXT : Do you snore loudly (louder than talking or can be heard through closed doors)? 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 Specify any problems Hx of Preganancy in last 3 N/A 09/02/24 06:38 Months Nurse Filling Out Transfusion LSMITH 09/02/24 06:38 & Questions: Date: 09/02/24 09/02/24 06:38 Time: 06:49 09/02/24 06:38 Patient unable to answer at this time (ie. confused, unrespo /Reproduction History /Reproductive History - undercollar baster: /Reproductive Hx- undercollar baster Hx Now No 09/03/24 08:35 Gestational Age (in weeks): EDC: Hx Hx Para Hx Section SAB No 09/03/24 08:35 Active Medications Active Medications: Current Medications Generic Name Dose Route Start Last Admin Trade Name Freq PRN Reason Stop Dose Admin Acetaminophen 650 mg 09/02/24 06:39 09/03/24 06:52 Acetaminophen 325 Mg Tablet PO 650 mg Q4H PRN PRN Administration Fever, pain -05/02 Al Hydroxide/Mg Hydroxide 30 ml 09/02/24 06:39 Mag Hydrox/Al Hydrox/Simeth 30 Ml Udc PO Q6H PRN PRN Gastric Burning Dexamethasone Sodium Phosphate 4 mg 09/02/24 18:00 09/03/24 06:52 Dexamethasone 4 Mg/Ml Vial IV 4 mg Q6 CARLO Administration Gabapentin 100 mg 09/02/24 07:00 09/03/24 08:41 Gabapentin 100 Mg Capsule PO Not Given TIDCM [facility] Guaifenesin 20 ml 09/02/24 06:39 Guaifenesin 10 Ml Udc (200mg/10ml) PO Q4H PRN PRN COUGH Hydromorphone HCl 0.5 mg 09/02/24 06:39 09/03/24 08:44 Hydromorphone 0.5 Mg/0.5 Ml Syringe IV 0.5 mg Q3H PRN PRN Administration Pain Score 6-10 Levothyroxine Sodium 137 mcg 09/03/24 06:00 09/03/24 04:36 Levothyroxine 137 Mcg Tablet PO 137 mcg DAILY@0600 [facility] Administration Lidocaine 2 patch 09/02/24 07:00 09/03/24 08:41 Lidocaine 5% Patch TOPICAL Not Given DAILY [facility] Protocol Ondansetron HCl 4 mg 09/02/24 06:39 Ondansetron 4 Mg/2 Ml Vial IV Q8H PRN PRN NAUSEA/VOMITING Oxycodone HCl 5 mg 09/02/24 06:39 09/03/24 06:52 Oxycodone 5 Mg Tablet PO 5 mg Q4H PRN PRN Administration Pain Score 4-10 Senna/Docusate Sodium 2 tablet 09/02/24 06:39 09/03/24 01:15 Senna/Docusate Sodium 1 Tablet PO 2 tablet BID PRN PRN Administration Constipation Sertraline HCl 50 mg 09/02/24 10:00 09/03/24 10:15 Sertraline 50 Mg Tablet PO Not Given DAILY [facility] Sodium Chloride 10 - 40 ml 09/02/24 06:51 09/03/24 08:44 0.9% Saline Lock 10 Ml Syringe IV 10 ml UD PRN Administration SALINE FLUSH Temazepam 15 mg 09/02/24 06:39 09/02/24 21:16 Temazepam 15 Mg Capsule PO 15 mg QHS PRN PRN Administration INSOMNIA Tizanidine HCl 2 mg 09/02/24 15:00 09/03/24 04:36 Tizanidine Hcl 2 Mg Tablet PO 2 mg Q8H PRN PRN Administration muscle spasm/strain PFSH Medical History Hypothyroidism Anxiety and depression Lumbago with sciatica, left side Lumbar strain Wears glasses Wears dentures Complex regional pain syndrome I Nail deformity Foreign body finger Drug abuse Sarcoma Bone fracture Home Medications ?Medication ?Instructions ?Recorded ?Last Taken ?Type cholecalciferol (vitamin D3) 50 50 mcg PO DAILY Unknown History mcg (2,000 unit) capsule lactobacillus combination no.4 3 3,000 mmu cells PO DA RUT 08/08/23 Unknown History billion cell capsule (Probiotic) multivitamin 1 tab PO DAILY 08/08/23 Unkn own History sertraline 50 mg tablet (Zoloft) 50 mg PO DAILY 10/01/23 History levothyroxine 137 mcg tablet 137 mcg PO DAILY 09/02/24 Unknown History meloxicam 7.5 mg tablet 7.5 mg PO BID 09/02/24 Unkno wn History Allergy/AdvReac Type Severity Reaction Status Date / Time succinylcholine chloride Allergy Other Verified 09/02/24 02:14 (From Anectine) Family History Mother Diabetes Heart disease Hypertension Brother CVA (cerebral vascular accident) Surgical History S/P inguinal hernia repair History of sarcoma S/P wrist surgery History of shoulder surgery Social History household members: spouse Smoking Status: Former smoker second hand exposure: Yes alcohol intake: never substance use type: former substance user what type of physical activity do you participate in: other seatbelt use: never additional social history: SUN EXPOSURE: FREQUENTLY Review of Systems (Anesthesia) ROS Narrative System reviewed and no additional complaints, except as documented.
--- NOTE | 2024-09-03 12:00 | RAD_ITS ---
EXAM: FLUOR GUIDANCE FOR SPINE INJ CLINICAL HISTORY: Chronic back pain. COMPARISON: None. TECHNIQUE: Intraoperative fluoroscopy provided for epidural injection. FINDINGS: Fluoroscopic services provided for epidural injection. RAD/Fluor Guidance for Spine Inj IMPRESSION: Fluoroscopic services provided for epidural injection. Reading Location: [facility]
[2024-09-03] MEDS: Lidocaine 1% (5 ml sdv) 5 ML Vial (12:05)
[2024-09-03] MEDS: MethylPREDNISolone Acetate 80 MG/ML Vial (12:05)
[2024-09-03] MEDS: Bupivacaine 0.25% 30 ML Vial (12:05)
--- NOTE | 2024-09-03 12:10 | PCM.OPRPT ---
Operative Report (Standard) Operative Information Date of Procedure: 09/03/24 Pre-Operative Diagnosis: Lumbosacral radiculopathy, lumbosacral degenerative disc disease, lumbosacral spinal stenosis Post-Operative Diagnosis: Lumbosacral radiculopathy, lumbosacral degenerative disc disease, lumbosacral spinal stenosis Surgery/Procedure Performed: Left-sided lumbar transforaminal epidural steroid injection L3-4, L4-5 under fluoroscopy business professor: No Type of Anesthesia: Local MAC RN Documented Start/Stop Times: Operation Date: 09/03/24 11:30 Case Time Into Pre-Op 09/03/24 10:25 Out of Pre-Op 09/03/24 11:51 Anesthesia Start 09/03/24 11:54 Into Room 09/03/24 11:54 Procedure Start 09/03/24 12:05 Procedure End 09/03/24 12:08 Procedure Start Time: 12:11 Procedure Stop Time: 12:11 Select all DRAINS/GRAFTS/IMPLANTS that apply: None Estimated Blood Loss: 0 Specimen collected: No Description of surgery: PREOPERATIVE DIAGNOSES: 1. Lumbosacral radiculopathy. 2. Lumbosacral degenerative disk disease. 3. Lumbosacral spinal stenosis. POSTOPERATIVE DIAGNOSES: 1. Lumbosacral radiculopathy. 2. Lumbosacral degenerative disk disease. 3. Lumbosacral spinal stenosis. PROCEDURE PERFORMED: Left-sided lumbar transforaminal epidural steroid injection, L3-4 and L4-5. ANESTHESIA: MAC. BLOOD LOSS: Minimal. COMPLICATIONS: None. DESCRIPTION OF PROCEDURE: History and physical of today was reviewed. Risks and benefits of the procedure were explained. The patient understood and agreed to proceed. Informed consent was obtained. IV inserted per routine protocol. The patient was taken to the operating room and placed in the prone position with a pillow positioned underneath the abdomen. The left side of his lower back was prepped and draped in a sterile fashion using iodine x3. Under fluoroscopy guidance on oblique view, the L3 through L5 vertebral bodies were visualized. The skin and subcutaneous tissue was anesthetized with approximately 5 mL of 1% lidocaine using a 25-gauge regular needle. Under direct visualization with fluoroscopy at approximately 35-degree angle, starting on the left L3, ending on the left L4, using a 22-gauge 5-inch spinal needle, the needle was advanced via the skin. The tip of the needle was maneuvered and directed towards the inferior and medial gutter of the transverse process at the superiormost aspect of the neural foramen. Once the tip of the needle was at the vicinity of the foramen, after negative aspiration for blood or CSF, a total of 1 mL of contrast was injected in divided doses between both levels to confirm correct placement of the needle as well as medial spread. The confirmation was obtained on AP as well as lateral view. After repeated negative aspiration and confirmation on AP as well as lateral view, a total of 6 mL of preservative-free 0.25% Marcaine with 80 mg of Depo-Medrol was injected in divided doses between both levels. The needles were then removed intact. The patient experienced no sign or symptoms of intrathecal or intravascular injection. The patient experienced no paresthesia. The procedure was completed without any apparent difficulty or any complications. The patient appeared to tolerate it well. ASSESSMENT AND PLAN: This is a 58-year-old male with lumbosacral radiculopathy, lumbosacral degenerative disk disease, and lumbosacral spinal stenosis, status post left-sided lumbar transforaminal epidural steroid injection at L3-4 and L4-5. The patient will continue his current medications. The patient will follow up in approximately 2 weeks for reevaluation. Surgical Findings: none Complications Complications: No Admit VTE Documentation VTE Present on Admission: No VTE Pharm Prophylaxis ordered?: No
--- NOTE | 2024-09-03 12:14 | PCM.HP.STD ---
HPI - General General Date of Admission: 09/02/24 Chief Complaint: Intractable back pain HPI Narrative JOSE MARIA CALABRESE, is a 58 M who presents [facility] Medical History (Updated 09/03/24 @ 12:[address] Bradly Briceno MD) Lumbar radiculopathy Hypothyroidism Anxiety and depression Lumbago with sciatica, left side Lumbar strain Wears glasses Wears dentures Complex regional pain syndrome I Nail deformity Foreign body finger Drug abuse Sarcoma Bone fracture Home Medications ?Medication ?Instructions ?Recorded ?Last Taken ?Type cholecalciferol (vitamin D3) 50 50 mcg PO DAILY 08/08/23 Unknown History mcg (2,000 unit) capsule lactobacillus combination no.4 3 3,000 mmu cells PO DAILY 08/08/23 Unknown History billion cell capsule (Probiotic) multivitamin 1 tab PO DAILY 08/08/23 Unknown History sertraline 50 mg tablet (Zoloft) 50 mg PO DAILY 08/08/23 10/01/23 History levothyroxine 137 mcg tablet 137 mcg PO DAILY 09/02/24 Unknown History meloxicam 7.5 mg tablet 7.5 mg PO BID 09/02/24 Unknown History Allergy/AdvReac Type Severity Reaction Status Date / Time succinylcholine chloride Allergy Other Verified 09/02/24 02:14 (From Anectine) Family History Mother Diabetes Heart disease Hypertension Brother CVA (cerebral vascular accident) Surgical History S/P inguinal hernia repair History of sarcoma S/P wrist surgery History of shoulder surgery Social History household members: spouse Smoking Status: Former smoker second hand exposure: Yes alcohol intake: never substance use type: former substance user what type of physical activity do you participate in: other seatbelt use: never additional social history: SUN EXPOSURE: FREQUENTLY Vital Signs Vital Signs Vital Signs: 09/02/24 14:35 09/02/24 20:55 09/02/24 22:11 Temperature 97.8 F 97.9 F Temperature Source Temporal Temporal Pulse Rate 76 83 Pulse Strength Respiratory Rate 18 16 Respiratory Effort Blood Pressure 136/93 H 172/98 H Blood Pressure Mean 107 122 Blood Pressure Source Monitor Monitor Blood Pressure Position Semi-Fowlers Semi-Fowlers Blood Pressure Location Right Arm Right Arm Pulse Ox 98 96 97 Oxygen Delivery Method Room Air Room Air Room Air 09/03/24 00:59 09/03/24 01:10 09/03/24 04:33 Temperature 97.7 F L 97.0 F L Temperature Source Oral Temporal Pulse Rate 69 73 Pulse Strength Respiratory Rate 16 20 H Respiratory Effort Normal Non-Labored Blood Pressure 136/69 H 158/99 H Blood Pressure Mean 91 118 Blood Pressure Source Monitor Monitor Blood Pressure Position Right Lateral Semi-Fowlers Blood Pressure Location Left Arm Left Arm Pulse Ox 92 95 Oxygen Delivery Method Room Air Room Air Room Air 09/03/24 07:33 09/03/24 08:30 09/03/24 08:30 Temperature 98.6 F Temperature Source Temporal Pulse Rate 76 Pulse Strength Normal (2+) Respiratory Rate 18 Respiratory Effort Blood Pressure 148/78 H Blood Pressure Mean 101 Blood Pressure Source Monitor Blood Pressure Position Semi-Fowlers Blood Pressure Location Right Arm Pulse Ox 95 100 Oxygen Delivery Method Room Air Room Air 09/03/24 10:56 Temperature 98.6 F Temperature Source Pulse Rate 76 Pulse Strength Respiratory Rate 18 Respiratory Effort Blood Pressure 148/78 H Blood Pressure Mean Blood Pressure Source Blood Pressure Position Blood Pressure Location Pulse Ox 100 Oxygen Delivery Method Room Air Weight Weight: 83.7 kg Body Mass Index (BMI) 28.9 Physical Exam Const alert, oriented x3 and no apparent distress General Appearance: cooperative and well developed HEENT normocephalic and head/scalp atraumatic Face and Sinus: normal facial exam Eyes PERRL Neck full ROM and supple Chest inspection of chest normal Resp normal respiratory effort, no retractions and no use of accessory muscles Effort and Inspection: able to speak in complete sentences Auscultation: clear to auscultation bilaterally GI normal to inspection, nondistended, normoactive bowel sounds Back/Spine Back/Spine Narrative: Range of motion of the lumbar spine is decreased due to pain worse with flexion, straight leg raising test is positive on the left from sitting position Pelvis: buttocks normal Sacroiliac Joints: SI joints normal Extremity normal to inspection General Extremity: normal exam except as noted Peripheral Pulses: Yes pulses 2+ throughout Skin no rashes or lesions noted Neuro Motor Exam: strength abnormal Deep Tendon Reflexes: Rt Patellar (L4): 1+, Lt Patellar (L4): 1+, Rt Ankle (S1): 1+ and Lt Ankle (S1): 1+ Psych mental status grossly normal Appearance: grossly normal Activity / Motor Behavior: appropriate eye contact Speech: normal speech Thought Process: normal thought process Thought Content: normal thought content Results Lab / Micro Data 09/03/24 06:09 09/03/24 06:09 Labs: Laboratory Results - last 24 hr 09/03/24 06:09: WBC 10.2, RBC 4.67, Hgb 14.7, Hct 42.2, MCV 90.4, MCH 31.5, MCHC 34.8, RDW Std Deviation 39.0, RDW Coeff of Mikhail 11.9, Plt Count 279, MPV 10.2, Immature Gran % (Auto) 0.500, Neut % (Auto) 88.5 H, Lymph % (Auto) 8.4 L, [place] % (Auto) 2.5, Eos % (Auto) 0.0, Baso % (Auto) 0.1, Absolute Neuts (auto) 9.1 H, Absolute Lymphs (auto) 0.86, Nucleated RBC % 0, Sodium 139, Potassium 4.3, Chloride 105, Carbon Dioxide 28.0, Anion Gap 6, BUN 21 H, Creatinine 0.81, Estim Creat Clear Calc 102.84, Est GFR (MDRD) Af Amer 126, Est GFR (MDRD) Non-Af 104, BUN/Creatinine Ratio 26.0 H, Glucose 147 H, Calcium 9.2, Total Bilirubin 0.60, AST 82 H, ALT 227 H, Alkaline Phosphatase 84, Total Protein 7.0, Albumin 3.5, Globulin 3.5, Albumin/Globulin Ratio 1.0 Imaging Radiology Impression Lumbar Spine MRI 09/02/24 06:39 IMPRESSION: 1. No contrast enhancing spinal lesion. 2. Multilevel degenerative changes, resulting in severe central and bilateral neural foraminal stenosis as described. Reading Location: [facility] X-Ray 09/02/24 14:00 IMPRESSION: No intraorbital metal is seen. The visualized paranasal sinuses and mastoid air cells appear clear. No acute osseous process is seen. Reading Location: [id number] Assessment & Plan Assessment/Plan (1) Lumbar radiculopathy: (2) Hx of degenerative disc disease: (3) Lumbago with sciatica, left side: PLAN: Plan This is a 58-year-old male with lumbosacral radiculopathy, lumbosacral degenerative disc disease, acute sciatica status post left-sided lumbar transforaminal epidural steroid injection L3-4, L4-5 patient will continue his current medications, patient will resume his diet without restrictions, left leg may be weak for up to 6 hours postoperatively, patient will follow-up in 2 weeks at my office for reevaluation, okay to discharge per the hospitalist and other consulting services.
--- NOTE | 2024-09-03 12:21 | PCM.POST.ANE ---
Anesthesia: Postop Eval I Current Vital Signs Temperature: 98.5 F Pulse Rate: 90 Blood Pressure: 105/80 Respiratory Rate: 16 Pulse Ox: 97 Assessment Airway patent: Yes Spontaneous unlabored respirations: Yes nausea: No Vomiting: No Anesthesia Complication: No Fluid Hydration Crystalloid volume administer (ml): 10 Total IV fluid infused: 10 Progress Note Anesthesia document: Postop Eval 1 completed: Yes
[2024-09-03] MEDS: Gabapentin 100 MG Capsule PO (13:08)
[2024-09-03] MEDS: Lidocaine 5% Patch 2 PATCH TOPICAL (13:08)
--- NOTE | 2024-09-03 13:20 | POSTOPAN2_ITS ---
Anesthesia Postop Eval I Sum Postop Eval Completion status Anesthesia document: Postop Eval 1 completed: Yes Anesthesia Postop Eval I Summary Anesthesia Postop Eval I Summary: Anesthesia Postop Eval I: Assessment Summary Airway patent Yes 09/03/24 12:22 [email or web address] Spontaneous unlabored Yes 09/03/24 12:22 [email or web address] [email or web address] respirations Mental status nausea No 09/03/24 12:22 [email or web address] Vomiting No 09/03/24 12:22 [email or web address] Anesthesia Postop Eval I: Fluid Summary Crystalloid volume administer 10 09/03/24 12:22 [email or web address] [email or web address] (ml) Colloids volume administered ( ml) Blood Product volume administered (ml) Total IV fluid infused 10 09/03/24 12:22 [email or web address] [email or web address] Anesthesia Postop Eval I: Summary Notes Anesthesia Complication No 09/03/24 12:22 [email or web address] Anesthesia Complication Comment: Post-operative progress note Anesthesia: Postop Eval II Evaluation Mental status: Awake and Calm Pain Level: 1 nausea: No Vomiting: No Complications Anesthesia Complication: No
--- NOTE | 2024-09-03 13:20 | PCM.POSTANE2 ---
Anesthesia Postop Eval I Sum Postop Eval Completion status Anesthesia document: Postop Eval 1 completed: Yes Anesthesia Postop Eval I Summary Anesthesia Postop Eval I Summary: Anesthesia Postop Eval I: Assessment Summary Airway patent Yes 09/03/24 12:22 [email or web address] Spontaneous unlabored Yes 09/03/24 12:22 SUPERVISOR [email or web address] respirations Mental status nausea No 09/03/24 12:22 SUPERVISOR [email or web address] Vomiting No 09/03/24 12:22 SUPERVISOR [email or web address] Anesthesia Postop Eval I: Fluid Summary Crystalloid volume administer 10 09/03/24 12:22 SUPERVISOR [email or web address] (ml) Colloids volume administered ( ml) Blood Product volume administered (ml) Total IV fluid infused 10 09/03/24 12:22 SUPERVISOR [email or web address] Anesthesia Postop Eval I: Summary Notes Anesthesia Complication No 09/03/24 12:22 SUPERVISOR [email or web address] Anesthesia Complication Comment: Post-operative progress note Anesthesia: Postop Eval II Evaluation Mental status: Awake and Calm Pain Level: 1 nausea: No Vomiting: No Complications Anesthesia Complication: No
--- NOTE | 2024-09-03 15:05 | DCINST_ITS ---
Discharge Instructions Diet Discharge Diet: No restrictions DC O2, CPAP, BIPAP needs Home O2 Discharge instructions: No Dressing / Incision Discharge Activity: Return to Normal Activity Weight Bearing Status: Full weight bearing Follow Up Care Test Results: Test results from this visit will be discussed in further detail at your follow- up appointment, if applicable. Discharge Plan Admission Admit Date/Time: 09/02/24 06:06 Primary Reason for Your Visit: Lumbar radiculopathy, degenerative joint disease of the lumbar spine Attending Provider: Cuauhtemoc Allan Primary Care Provider: Deo Oglesby Consulting Providers: Alberto Camarillo; Bernice Stockton; Bradly Briceno Instructions Forms: Work / School Excuse Additional Instructions / Restrictions: You may use Aleve or ibuprofen if you desire for pain control Discharge Orders/Prescriptions Prescriptions: New gabapentin 100 mg Capsule 200 mg PO TIDCM Qty: 180 0RF hydrocodone-acetaminophen 5-325 mg tablet 1 tab PO Q4H PRN (Reason: pain) 7 Days Qty: 30 0RF Continued sertraline [Zoloft] 50 mg tablet 50 mg PO DAILY cholecalciferol (vitamin D3) 50 mcg (2,000 unit) capsule 50 mcg PO DAILY Probiotic 3 billion cell capsule 3,000 mmu cells PO DAILY Rx Instructions: administer with a meal multivitamin Tablet 1 tab PO DAILY levothyroxine 137 mcg tablet 137 mcg PO DAILY meloxicam 7.5 mg tablet 7.5 mg PO BID Referrals / Follow Up: Deo Oglesby MD [Primary Care Provider] - Within 1 Month Bradly Briceno MD [Med Staff - Active Staff] - See Referral Note (Call to schedule an appointment) Disposition Disposition (needs filled in before D/C Order can be placed): Home, Self Care
--- NOTE | 2024-09-03 15:12 | PCM.DC.SUM ---
Providers Date of Admission: 09/02/24 Date of Discharge: 09/03/24 Primary Care Physician: Dr. Deo Oglesby MD Consultations 09/02/24 06:39 Consult: Orthopedics Routine Consulting Provider: Alberto Camarillo Reason for Consult: Intractable back pain EMERGENT Consult: No Notified: Yes Date Notified: 09/02/24 Time Notified: 06:08 Method of Notification: ED Physician Initiated 09/02/24 20:45 Consult: Pain Management Routine Consulting Provider: Bradly Briceno Reason for Consult: DJD lumbar spine, need for epidural EMERGENT Consult: No Notified: Yes Date Notified: 09/02/24 Time Notified: 20:45 Method of Notification: Verbal Reason For Visit: INTRACTABLE BACK PAIN Diagnosis Discharge Diagnosis (1) Lumbar radiculopathy: Status: Inactive Code(s): M54.16 - Radiculopathy, lumbar region (2) Hx of degenerative disc disease: Status: Inactive Code(s): Z87.39 - Personal history of other diseases of the musculoskeletal system and connective tissue (3) Lumbago with sciatica, left side: Status: Inactive Code(s): M54.42 - Lumbago with sciatica, left side Plan 1. Lumbar radiculopathy secondary to degenerative disc disease of the lower lumbar spine-again patient will be seen by pain management tomorrow, I placed the patient on IV Decadron in the meantime, spinal surgery is participating in his care #2 uncontrolled low back pain secondary to lumbar radiculopathy and degenerative disc disease of the lumbar spine-patient will continue on his present pain medications, I have stopped his Toradol due to the fact that I placed him on IV corticosteroids #3 hypothyroidism-patient is on Synthroid #4 chronic depression/anxiety-patient is on Zoloft Total clinical time spent by myself addressing patient's medical issues, reviewing all of his data, and collaborating with patient's care team: 35-minute Medications at Discharge Home Medications cholecalciferol (vitamin D3) 50 mcg (2,000 unit) capsule 50 mcg PO DAILY 08/08/23 lactobacillus combination no.4 3 billion cell capsule (Probiotic) 3,000 mmu cells PO DAILY 08/08/23 multivitamin 1 tab PO DAILY 08/08/23 sertraline 50 mg tablet (Zoloft) 50 mg PO DAILY 08/08/23 levothyroxine 137 mcg tablet 137 mcg PO DAILY 09/02/24 meloxicam 7.5 mg tablet 7.5 mg PO BID 09/02/24 gabapentin 100 mg capsule 200 mg (2 x 100 mg) PO TIDCM #180 caps 09/03/24 hydrocodone-acetaminophen 5-325mg 5mg-325mg 1 tab PO Q4H PRN pain 7 days #30 tabs 09/03/24 Hospital Course Operations None Procedures - (Left-sided lumbar transforaminal epidural steroid injection L3-4, and L4-5 under fluoroscopy) Summary of Care Provided Minutes Spent on Discharge: 31 Hospital Course: This 58-year-old white male was seen in the emergency room at [facility] with complaints of severe back pain and pain going down his right buttocks and leg, he was not able to walk or perform ADLs at home due to this. He had seen his family doctor and been placed on prednisone but this did not help. CT of the lumbar spine was obtained there is no acute fracture, there is multilevel degenerative disc disease greatest at L5-S1 with moderate to severe central canal stenosis and severe bilateral neuroforaminal narrowing. There is also this is the suggestion of a right subarticular disc protrusion at L5-S1 with mass effect on the right S1 nerve as well as abutment of the left S1 nerve from the disc bulge. Patient was placed in observation status on MedSurg 3, IV analgesics and IV corticosteroids were administered, patient was seen in consultation by spinal surgery and pain management, MRI was obtained, it did show multilevel degenerative changes resulting in severe central and bilateral foraminal stenosis at the L4-5 level and L5-S1 level. Patient underwent an epidural injection by pain management, he did well after the injection and had good relief of his discomfort, on 09/03/2024, patient was seen and examined: On examination he appeared in good health and spirits. Vital signs as documented. Skin warm and dry and without overt rashes. Neck without JVD, neck was supple, trachea midline, thyroid was normal. Lungs clear bilaterally, normal air movement was noted. Heart exam notable for regular rhythm, normal sounds and absence of murmurs, rubs or gallops. Abdomen unremarkable and without evidence of organomegaly, masses, or abdominal aortic enlargement. Bowel sounds are present, abdomen is not distended. Extremities nonedematous, no cyanosis was noted, no clubbing was noted. Neuro: Cranial nerves II through XII are grossly intact, no focal motor deficits were noted, sensation to light touch and pinprick intact, motor exam 5/5 throughout. Psych: Patient is alert and oriented x3, he does not appear anxious or depressed, he does not appear agitated. Patient was discharged home in stable condition on 09/03/2024 Weight / BMI Weight Weight: 83.7 kg Body Mass Index (BMI) 28.9 ABG / Lab / Microbiology Data 09/03/24 06:09 09/03/24 06:09 Laboratory: Laboratory Results - last 24 hr 09/03/24 06:09: WBC 10.2, RBC 4.67, Hgb 14.7, Hct 42.2, MCV 90.4, MCH 31.5, MCHC 34.8, RDW Std Deviation 39.0, RDW Coeff of Mikhail 11.9, Plt Count 279, MPV 10.2, Immature Gran % (Auto) 0.500, Neut % (Auto) 88.5 H, Lymph % (Auto) 8.4 L, Bartholomew % (Auto) 2.5, Eos % (Auto) 0.0, Baso % (Auto) 0.1, Absolute Neuts (auto) 9.1 H, Absolute Lymphs (auto) 0.86, Nucleated RBC % 0, Sodium 139, Potassium 4.3, Chloride 105, Carbon Dioxide 28.0, Anion Gap 6, BUN 21 H, Creatinine 0.81, Estim Creat Clear Calc 102.84, Est GFR (MDRD) Af Amer 126, Est GFR (MDRD) Non-Af 104, BUN/Creatinine Ratio 26.0 H, Glucose 147 H, Calcium 9.2, Total Bilirubin 0.60, AST 82 H, ALT 227 H, Alkaline Phosphatase 84, Total Protein 7.0, Albumin 3.5, Globulin 3.5, Albumin/Globulin Ratio 1.0 Radiography Diagnostic Testing: Radiology Impression Lumbar Spine MRI 09/02/24 06:39 IMPRESSION: 1. No contrast enhancing spinal lesion. 2. Multilevel degenerative changes, resulting in severe central and bilateral neural foraminal stenosis as described. Reading Location: [id number] Guidance Fluoroscopy 09/03/24 12:00 IMPRESSION: Fluoroscopic services provided for epidural injection. Reading Location: [id number] D/C Instructions Discharge Diet: No restrictions Weight Bearing Status: Full weight bearing DC O2, CPAP, BIPAP Needs Home O2 Discharge instructions: No Meaningful Use Info Meaningful Use Meaningful Use Diagnoses (Choose all that apply): None applicable Ischemic Stroke Statin Dosing Therapy Reference: STATIN DOSE THERAPY REFERENCE: * Patients > 75 years receive moderate or high dose statin therapy. * Patients 75 years or YOUNGER should receive HIGH intensity statin dose unless contraindicated. You will be required to document reason for non-treatment if statin daily dose does not meet guidelines. HIGH DOSE STATIN THERAPY DAILY Atorvastatin > than or = to 40 mg Rosuvastatin > than or = to 20 mg Amlodipine + Atorvastatin > than or = to 2.5/40 mg Ezetimibe + Simvastatin 10/80 mg Simvastatin 80mg Discharge Plan Admission Admit Date/Time: 09/02/24 06:06 Primary Reason for Your Visit: Lumbar radiculopathy, degenerative joint disease of the lumbar spine Attending Provider: Cuauhtemoc Allan Primary Care Provider: Deo Oglesby Consulting Providers: Alberto Camarillo; Bernice Stockton; Bradly Briceno Instructions Forms: Work / School Excuse Additional Instructions / Restrictions: You may use Aleve or ibuprofen if you desire for pain control Discharge Orders/Prescriptions Prescriptions: New gabapentin 100 mg Capsule 200 mg PO TIDCM Qty: 180 0RF hydrocodone-acetaminophen 5-325 mg tablet 1 tab PO Q4H PRN (Reason: pain) 7 Days Qty: 30 0RF Continued sertraline [Zoloft] 50 mg tablet 50 mg PO DAILY cholecalciferol (vitamin D3) 50 mcg (2,000 unit) capsule 50 mcg PO DAILY Probiotic 3 billion cell capsule 3,000 mmu cells PO DAILY Rx Instructions: administer with a meal multivitamin Tablet 1 tab PO DAILY levothyroxine 137 mcg tablet 137 mcg PO DAILY meloxicam 7.5 mg tablet 7.5 mg PO BID Referrals / Follow Up: Deo Oglesby MD [Primary Care Provider] - Within 1 Month Bradly Briceno MD [Med Staff - Active Staff] - See Referral Note (Call to schedule an appointment) Disposition Disposition (needs filled in before D/C Order can be placed): Home, Self Care Charges/Coding Visit Charges Inpatient E&M: 30960 Disch Hosp >30min
--- NOTE | 2024-09-03 15:20 | CASEMGMT ---
RN CM into pt room, pt lying in bed and at bedside. Answered pt questions regarding meds called in and follow up appts. Pt and deny further needs at this time.
== END 2024-09-03 15:40 | disposition home or self-care (01) ==
LOC: ED 02:56 → MS3 06:17
PROVIDERS: Anesthesiology Pain Medicine; Admitting Provider Family Medicine; Emergency Provider Surgery; PCP Family Medicine; Visit Provider Internal Medicine
PROC: 3E0S3BZ Introduction of Anesthetic Agent into Epidural Space, Percutaneous Approach (ICD-10-PCS; CPT 64484; principal; 2024-09-03 11:25)
DX: M48.07 Spinal stenosis, lumbosacral region (principal); M51.16 Intervertebral disc disorders with radiculopathy, lumbar region; M47.27 Other spondylosis with radiculopathy, lumbosacral region; E03.9 Hypothyroidism, unspecified; M48.061 Spinal stenosis, lumbar region without neurogenic claudication; M47.26 Other spondylosis with radiculopathy, lumbar region; G90.50 Complex regional pain syndrome I, unspecified; Z87.891 Personal history of nicotine dependence; F32.A Depression, unspecified; F41.9 Anxiety disorder, unspecified; Z79.899 Other long term (current) drug therapy; Z79.890 Hormone replacement therapy; R03.0 Elevated blood-pressure reading, without diagnosis of hypertension; N18.2 Chronic kidney disease, stage 2 (mild); Z23 Encounter for immunization
CPT/HCPCS: 64484; 01992; 64483; 36415; 70030; 72131; 72158; 77003; 80048; 80053; 85025; 90656; 94668; 96361; 96372; 96374; 96375; 96376; 99221; 99285; A9575; A4216; G0378; J2405

== ENCOUNTER → 2025-03-07 | Outpatient (CLI) | payer BC, SELFPAY ==
--- NOTE | 2025-03-07 11:37 | RAD_ITS ---
PROCEDURE: SHOULDER MIN 2 VIEWS 03/07/2025 REASON FOR EXAM: PAIN IN LEFT SHOULDER TECHNIQUE: SHOULDER MIN 2 VIEWS Laterality: Left shoulder COMPARISON: None FINDINGS: Bones: No fracture is seen. Joints: Degenerative changes of the left acromioclavicular joint. Soft tissues: Calcification of the acromial clavicular ligament. Other: There is a 5.9 mm metallic radiopaque foreign body in the soft tissues overlying the lateral aspect of the proximal humerus. RAD/Shoulder min 2 Views IMPRESSION: Degenerative changes. No fracture is seen. Reading Location: [id number]
== END | disposition home or self-care (01) ==
LOC: MTRAD 11:31
PROVIDERS: PCP Family Medicine; Referring Provider Anesthesiology Pain Medicine; Visit Provider Anesthesiology Pain Medicine
DX: M19.012 Primary osteoarthritis, left shoulder (principal)
CPT/HCPCS: 73030